=== PATIENT | male | born 1960 | race Caucasian/White ===

== ENCOUNTER → 2016-08-16 | Outpatient (CLI) | payer OTHER ==
[~2016-08-16] VITALS: Ht 182.9 cm; Wt 132.0 kg
[~2016-08-16] MED LIST: ASPIRIN81 M2 PO; BACLOFEN 10MG T10 MG PO; CYCLOBENZAPRINE10 MG PO; CYMBALTA30 MG PO; CYMBALTA60 MG PO; DICLOFENAC SODI75 MG PO; FLEXERIL PO; HYDROCODON-ACE1 EAC8 PO; HYDROCODONE-AP1 EA11 PO; LIPITOR20 MG PO; LISINOPRIL-HCT1 EACH PO; NABUMETONE 500500 M1 PO; NEURONTIN 300300 M1 PO; SIMVASTATIN40 MG PO; XANAX1 MG PO
--- NOTE | ~2016-08-16 | HPC ---
[facility] [place] [address] PAIN MANAGEMENT CONSULTATION Name: JADYNARNAUD CEBALLOS Room #: REG [facility] Qasim.#: [id number] Admission: 08/16/16 Attend Phys: Darrion Warner DO Discharge: Date of : 60 Report #: [id number] THIS REPORT FOR: //name// CC: Juan Burton DO DATE OF SERVICE: 08/16/2016 DATE OF SERVICE: 08/16/2015 CHIEF COMPLAINT: Back pain. HISTORY OF PRESENT ILLNESS: As you know, the patient is a 56-year-old male followed by [facility] for longstanding axial back pain issues. He has been diagnosed with chronic lumbar radiculopathy, lumbosacral spondylosis with radiculopathy exacerbated by his morbid obesity. This leads to chronic intractable pain. He returns today in followup visit to review recent MRI. There was concern on CT examination that the patient had a cystic formation just posterior to the L4 vertebral body. There was concern about the findings and he was sent for an MRI per the request of the radiology team as they were unable to determine whether or not this was concerning for any infectious risk or possible metastatic disease. He returns today to review the findings from this imaging study. He is placing pain score today 5/10. States the pain is mainly involving the low back and right lower extremity. ALLERGIES: PENICILLIN, AMOXICILLIN. CURRENT MEDICATIONS: Hydrocodone, nabumetone, duloxetine, baclofen, atorvastatin, aspirin, lisinopril, hydrochlorothiazide. SOCIAL HISTORY: The patient discontinued smoking. Denies IV or illicit drug use. Denies any chronic alcohol use. He is accompanied by his today. IMAGING: MRI of the lumbar spine obtained with contrast shows findings of L1-L2 unremarkable, L2-L3 unremarkable, L3-L4 unremarkable. There is an oval soft tissue density noted on the MRI appears to be nonenhancing. L4-L5 show some minor changes in the facets L5-S1 unremarkable. PHYSICAL EXAMINATION: VITAL SIGNS: Blood pressure 121/61, pulse 74, respiratory rate 18 unlabored. Patient is 95% on room air, height 6 feet tall, weight 291 pounds, BMI calculated 39.5. GENERAL: Well developed, well nourished, well hydrated, morbidly obese 56-year-old male appearing stated age, placing current pain score at 5/10. HEENT: Normocephalic, atraumatic. Pupils equal, round, [place] [address] PAIN MANAGEMENT CONSULTATION Name: ARNAUD SALAMANCA Room #: REG CLI [facility]#: [id number] Admission: 08/16/16 Attend Phys: Darrion Warner DO Discharge: Date of : 60 Report #: [id number] Extraocular muscles are intact. Sclerae nonicteric, without injection. EXTREMITIES: Show no clubbing, no cyanosis, no edema. MUSCULOSKELETAL: Lower extremity strength appears equal and symmetrical 5/5, intact to light touch from L1 through S2 dermatomes. Seated straight leg raising negative. Supine straight leg raising mildly positive. Stacey test negative. Modified Gaenslen's is positive for axial low back pain. ASSESSMENT: 1. Chronic lumbar radiculopathy. 2. Mild arthritic changes of the lumbar spine with radicular component. 3. Chronic intractable pain. 4. Morbid obesity. PLAN: 1. The patient has returned today in followup visit where we have taken a considerable amount of time to discuss the findings on the MRI and try to correlate with his findings on physical exam. We spent over 45 minutes of time discussing the patient's case in its entirety. This in conjunction with the questions from his . It appears that the patient is suffering from chronic radiculopathy, though no specific pathology in the lumbar spine appears to be contributing. There is a minor disk bulging at L4-5 which may be when standing exacerbating his symptoms, but is not present causing any nerve root impingement while lying down. I am unable to correlated that finding on the MRI to the patient's current condition, as the dermatomal distribution that he is describing does not correlate to the findings of a L4 disk bulge. I would recommend strongly that the patient undergo EMG. I am unable to come up with a reason why the patient is experiencing numbness and tingling in his right leg while the patient undergo EMG with Neurology. He was given a referral for neurological evaluation and possible EMG procedure. 2. The patient and I did discuss at length the possibility of utilizing epidural injection. It is interesting to note that when the patient underwent an epidural injection at a prior visit, he received no improvement in symptoms, though the pathology in the back has been unchanged. This would effectively rule out a disk problem, as the source of the patient's pain though I cannot rule out a chronic radiculopathy of unknown origin. 3. The patient should begin a concerted effort of physical therapy, stretching exercises, weight loss and core strengthening. We have given the patient a prescription for physical therapy twice a week for 6 weeks. He will begin this immediately. This in conjunction with diet program should improve his weight. The patient is carrying around 70 pounds extra weight, which needs to be reduced, which will likely reduce his back pain. He will initiate this treatment as quickly as possible. 4. We have made no changes in his medication therapy at this time. This was further request of the patient. We will see him back in followup visit once he has begun to involve himself in a concerted fixed exercise program and weight [facility] [address] [place] [address] PAIN MANAGEMENT CONSULTATION Name: ARNAUD SALAMANCA Room #: REG CL Qasim.#: [id number] Admission: 08/16/16 Attend Phys: Darrion Warner DO Discharge: Date of : 60 Report #: [id number] loss program. This in conjunction with the EMG findings will review at our followup visit. <ELECTRONICALLY SIGNED> By: Darrion Warner DO 08/21/16 0701 [id number] Darrion Warner DO /nt
[2016-08-16 08:43] VITALS: BP 122/61
== END ==
LOC: PAIN 06:56
DX: M54.16 Radiculopathy, lumbar region (principal); Z87.891 Personal history of nicotine dependence; E66.01 Morbid (severe) obesity due to excess calories

== ENCOUNTER → 2016-11-27 | Outpatient (CLI) | payer OTHER ==
[~2016-11-27] VITALS: Ht 185.4 cm; Wt 116.1 kg
[~2016-11-27] MED LIST changes: +NAPROSYN500 MG PO; +PERCOCET 5-3251 EACH PO
--- NOTE | ~2016-11-27 | HPC ---
[facility] [place] [address] PAIN MANAGEMENT CONSULTATION Name: ARNAUD SALAMANCA [id number] Admission: 11/27/16 Attend Phys: Chester Warner DO Discharge: Date of : 60 Report #: [id number] THIS REPORT FOR: //name// CC: Juan Hein REFERRING PHYSICIAN: Juan Zuniga DO. The patient is a 56-year-old gentleman, typically treated by Dr. Darrion Warner for symptomatic lumbar radiculopathy, myofascial pain, neuropathic pain component, requiring complex medication management. Last seen in the pain clinic on 09/12/2016. To the patient's credit, he has discontinued smoking some 16 months ago. He has been actively trying to lose weight. He had been down 23 pounds at last visit and is in fact down to a total of 38 pounds since he started "slim for life". States pain is primarily in beltline and up his back. He has been taking hydrocodone 7.5/325 for about 3 years. He started notice some end of dose failure and lack of efficacy. He notes pain as 2 on 0-10 visual analog scale. Chronic low back pain exacerbated with bending, general activity, typically worse at the end of the day. PHYSICAL EXAMINATION: Shows a 56-year-old gentleman, BMI is 33.8 kilograms per meter squared. Alert and oriented to person, place, and time. Judged to be a reasonable historian. Extraocular muscles are intact. There is no nystagmus or lateral gaze deviation. Blood pressure is 132/82, pulse 66, respirations 16. Rises from the chair using armrest. Gait is tandem. Lumbar flexion is limited to about 80-90 degrees. He has tenderness in his thoracic and lumbar paravertebral muscles. Pain is increased with range of motion. Hip range of motion is unremarkable. Stacey's test is negative. Lower extremity strength is objectively 4/5 to all muscle groups tested. BMI remains moderately elevated at 33.8 kilograms per meter squared. We reviewed the fact that opiate medications are being used to provide analgesia adequate to support activities of daily living, not attempting to achieve a specific pain score on the 0-10 Visual Analog Scale. The current opiate medications are providing sufficient analgesia to allow the patient to participate in activities of daily living. The patient is not exhibiting any aberrant behavior suggestive of drug diversion. The patient is not having any adverse reactions to medications. The patient is not suffering from daytime somnolence or mental acuity changes. The patient is managing opiate-induced constipation with appropriate pzdc-tri-lsihrmx agents and dietary considerations. The patient was counseled on concern for caution with operating a motor vehicle while using opiate medications. A physical exam was performed and the patient's functional status was evaluated. All patients with back pain were advised against the bed rest greater than 4 days and were advised to return to normal activities. Pain score assessment was [address] [address] PAIN MANAGEMENT CONSULTATION Name: ARNAUD SALAMANCA Room #: REG [facility]#: [id number] Admission: 11/27/16 Attend Phys: Chester Warner DO Discharge: Date of : 60 Report #: [id number] noted and the treatment plan was reviewed with the patient. All current medications, both prescribed and OTC were reviewed and reconciled on the electronic medical record. Tobacco screening was accomplished and smoking cessation was advised when indicated. BMI was noted and diet/exercise modification was recommended for all patients following outside normal parameters. I reviewed with the patient today their responsibilities to safeguard prescription medications, reviewed their responsibility to utilize medications only as prescribed by the physician. They are to seek and receive pain medications only from 1 physician group ( [facility]). They are to use 1 pharmacy and keep the clinic informed if they change pharmacies. Their responsibilities include making followup visits in a timely fashion and to avoid abrupt discontinuation of medication usage. Their responsibilities further include bringing their medications (bottles from the pharmacy with residual pills) to the visit for possible confirmation of pill counts and the patient understands it is their responsibility to submit to random drug screens to ensure both that the medications prescribed are present, and that no other controlled substances are present. All prescriptions provided today were generated electronically. A prolonged visit was spent with the patient today from 09:10 to 09:35. Greater than 50% of this time was spent counseling the patient. I reviewed [facility], which showed actually no information on the patient. He lives in [place] and fills his prescriptions there. He has a component of myofascial pain. Component of lumbar radicular symptoms. We reviewed the patient's MRI, which was most recently accomplished on 07/13/2016. It is really fairly unremarkable, lower thoracic and lumbar vertebra exhibit normal alignment. No lytic processes noted. Cauda equina appears normal. Conus terminates at L1. The patient has robust intrathecal diameter, throughout the lumbar canal. Intervertebral disk, facets, and foramina were all unremarkable. There is a soft tissue density dorsal to the L4 vertebral body. MEDICATIONS: Medications were reconciled, the patient apparently had been on Cymbalta at 60 mg at point, and now he is down to 30 mg, it is unclear why this was lowered, the patient is not sure. He had been on diclofenac, this has been discontinued in the past. He denies any gastroesophageal reflux or renal pathology. Denies any history of coronary artery disease, though he does have some hypertension treated with lisinopril. RECOMMENDATIONS: 1. We will trial an opiate rotation, equally analgesic oxycodone would be Percocet 5/325 t.i.d. We will increase Cymbalta to 60 mg and resume an [facility] [address] [place] [address] PAIN MANAGEMENT CONSULTATION Name: ARNAUD SALAMANCA Room #: REG [facility] Loan#: [id number] Admission: 11/27/16 Attend Phys: Chester Warner DO Discharge: Date of : 60 Report #: [id number] anti-inflammatory agent, Naprosyn 500 mg b.i.d. The patient cautioned about gastroesophageal reflux or melanotic stools. We will have the patient to follow up in 3 weeks. If this rotation is not efficacious, I did, however, give him two months of current prescription. If he notes good relief with the Percocet, but end of the dose failure, we may consider rotation to OxyContin 10 mg b.i.d. if he feels that it was not efficacious, we may consider rotation to hydrocodone extended release 30 mg 1 a day. The patient was discharged in good and stable condition after a prolonged visit, greater than 50% of the time spent counseling the patient. By: [id number] Chester Warner DO /arabella
[2016-11-27 09:04] VITALS: BP 132/82
== END | disposition home or self-care (01) ==
LOC: PAIN 06:49
DX: M54.16 Radiculopathy, lumbar region (principal); M79.1 Myalgia; G62.9 Polyneuropathy, unspecified

== ENCOUNTER → 2017-01-26 | Outpatient (CLI) | payer OTHER ==
[~2017-01-26] VITALS: Ht 185.4 cm; Wt 117.8 kg
--- NOTE | ~2017-01-26 | HPC ---
[facility] [address] [place] [address] PAIN MANAGEMENT CONSULTATION Name: JADYNARNAUD CEBALLOS [id number] Admission: 01/26/17 Attend Phys: Chester Warner DO Discharge: Date of : 60 Report #: [id number] THIS REPORT FOR: //name// CC: Juan Warner HISTORY OF PRESENT ILLNESS: The patient is a 56-year-old gentleman typically treated for axial back pain, lumbar radiculopathy, myofascial pain, neuropathic pain requiring complex medication management. Last seen in the pain clinic 11/27/2016. We increased Cymbalta to 60 so to back on Naprosyn (he had prior discontinued diclofenac) and rotated from hydrocodone, which he has been on for about 3 years to oxycodone. Equianalgesic dose of 7.5 mg hydrocodone to 5/325 Percocet. The patient returns to pain clinic today noting that actually this medication has been quite efficacious. States his pain is generally 2/10, chronic low back pain exacerbated with activity, worse at the end of the day, though significantly better than it had been with his prior opiate. PHYSICAL EXAMINATION: Shows 56-year-old gentleman, BMI is 34.3 kilograms per meter squared. Vital signs stable as noted on the EMR. He still is a little bit overweight, weight is about 259 pounds, BMI is 34.3 kilograms per meter squared. He and his have been using "slim for life," though he states he has been little less diligent with this recently. He did lose about 30 pounds. He wants to lose about another 30 pounds. Notes that his left shoulder pain is significantly improved with the resumption of the nonsteroidal anti-inflammatory agent, I did talk in broad terms today about cardiac risks of nonsteroidal anti-inflammatory medications and daily use. Suggested he started using the Naprosyn on a nondaily basis, perhaps 4/7 days. We will continue Percocet 5/325 up to 3 a day, Cymbalta 60 mg a day. We reviewed the fact that opiate medications are being used to provide analgesia adequate to support activities of daily living, not attempting to achieve a specific pain score on the 0-10 Visual Analog Scale. The current opiate medications are providing sufficient analgesia to allow the patient to participate in activities of daily living. The patient is not exhibiting any aberrant behavior suggestive of drug diversion. The patient is not having any adverse reactions to medications. The patient is not suffering from daytime somnolence or mental acuity changes. The patient is managing opiate-induced constipation with appropriate uptz-fmc-toxxwsl agents and dietary considerations. The patient was counseled on concern for caution with operating a motor vehicle while using opiate medications. A physical exam was performed and the patient's functional status was evaluated. All patients with back pain were advised against the bed rest greater than 4 days and were advised to return to normal activities. Pain score assessment was noted and the treatment plan was reviewed with the patient. All current [address] [address] PAIN MANAGEMENT CONSULTATION Name: ARNAUD SALAMANCA Room #: REG [facility] Cates#: [id number] Admission: 01/26/17 Attend Phys: Chester Warner DO Discharge: Date of : 60 Report #: [id number] medications, both prescribed and OTC were reviewed and reconciled on the electronic medical record. Tobacco screening was accomplished and smoking cessation was advised when indicated. BMI was noted and diet/exercise modification was recommended for all patients following outside normal parameters. I reviewed with the patient today their responsibilities to safeguard prescription medications, reviewed their responsibility to utilize medications only as prescribed by the physician. They are to seek and receive pain medications only from 1 physician group ( [facility]). They are to use 1 pharmacy and keep the clinic informed if they change pharmacies. Their responsibilities include making followup visits in a timely fashion and to avoid abrupt discontinuation of medication usage. Their responsibilities further include bringing their medications (bottles from the pharmacy with residual pills) to the visit for possible confirmation of pill counts and the patient understands it is their responsibility to submit to random drug screens to ensure both that the medications prescribed are present, and that no other controlled substances are present. All prescriptions provided today were generated electronically. ASSESSMENT: Lumbar radiculopathy, axial back pain, myofascial pain, neuropathic pain component, requiring complex medication management, stable on baseline medication. RECOMMENDATIONS: I have taken the liberty of writing for 2 months of current medication, Percocet 5/325 up to 3 a day, Cymbalta 60 mg daily, baclofen 10 mg b.i.d. and naproxen sodium 500 mg b.i.d., "nondaily use." Follow up in 2 months for reevaluation. We will likely get a urine drug screen at that time. No aberrant behavior suggestive for drug diversion, simply complying with our opiate consent to treat contract. <ELECTRONICALLY SIGNED> By: Chester Warner DO 01/29/17 [id number] Chester Warner DO /nt
[2017-01-26 08:27] VITALS: BP 125/69
== END | disposition home or self-care (01) ==
LOC: PAIN 06:55
DX: M54.16 Radiculopathy, lumbar region (principal); M79.1 Myalgia; G62.9 Polyneuropathy, unspecified; Z87.891 Personal history of nicotine dependence

== ENCOUNTER → 2017-03-22 | Outpatient (CLI) | payer OTHER ==
[~2017-03-22] VITALS: Ht 185.4 cm; Wt 118.8 kg
--- NOTE | ~2017-03-22 | HPC ---
[facility] [address] [place] [address] PAIN MANAGEMENT CONSULTATION Name: ARNAUD SALAMANCA Room #: REG CLARI Cates#: [id number] Admission: 03/22/17 Attend Phys: Chester Warner, DO Discharge: Date of : 60 Report #: [id number] THIS REPORT FOR: //name// CC: Juan Warner The patient is a 56-year-old gentleman typically treated for axial back pain, lumbar radiculopathy requiring complex medication management. Last seen in the pain clinic 01/25/2017. Returns to pain clinic today for prolonged visit, was seen from 9:15-9:40, greater than 50% of this 25+ minute visit was spent counseling the patient. He has started slim for life and lost 30 pounds at last visit. Returns to pain clinic today. He is somewhat chagrined and notes that he "fell off the slim for life wagon." His weight is unchanged from last visit. He also has stopped walking with his , they were walking at 6 miles at night. He notes he is desirous of weaning off of his opiate analgesics, takes Percocet 5/325 three a day. I did have him fill out a pain impact score. Today, he scores 34/70. He does have goals of losing another 30 pounds and getting off of pain medicine by this time next year. Today, we did get a buccal swap, no aberrant behavior suggestive for drug diversion, simply patient has not had any random test as required by our opiate consent to treat contract. Again, notes the pain is about 2/10, but the worst at the end of the day exacerbated specifically with leaning forward and walking. PHYSICAL EXAMINATION: GENERAL: Shows 56-year-old gentleman, BMI is 34.6 kilograms per meter squared (weight is 118 kilograms). VITAL SIGNS: Blood pressure 135/66, pulse is 88, respirations 16. NEUROLOGIC: He is alert and oriented to person, place and time, and judged to be a reasonable historian. Rises from chair using armrest. He still has an endomorphic build. Lumbar flexion is limited. Gait is tandem. Lower extremity strength is preserved. We reviewed the fact that opiate medications are being used to provide analgesia adequate to support activities of daily living, not attempting to achieve a specific pain score on the 0-10 Visual Analog Scale. The current opiate medications are providing sufficient analgesia to allow the patient to participate in activities of daily living. The patient is not exhibiting any aberrant behavior suggestive of drug diversion. [place] [address] PAIN MANAGEMENT CONSULTATION Name: ARNAUD SALAMANCA Room #: REG [facility] Qasim.#: [id number] Admission: 03/22/17 Attend Phys: Chester Warner DO Discharge: Date of : 60 Report #: [id number] adverse reactions to medications. The patient is not suffering from daytime somnolence or mental acuity changes. The patient is managing opiate-induced constipation with appropriate sitj-qpk-hsruoig agents and dietary considerations. The patient was counseled on concern for caution with operating a motor vehicle while using opiate medications. A physical exam was performed and the patient's functional status was evaluated. All patients with back pain were advised against the bed rest greater than 4 days and were advised to return to normal activities. Pain score assessment was noted and the treatment plan was reviewed with the patient. All current medications, both prescribed and OTC were reviewed and reconciled on the electronic medical record. Tobacco screening was accomplished and smoking cessation was advised when indicated. BMI was noted and diet/exercise modification was recommended for all patients following outside normal parameters. I reviewed with the patient today their responsibilities to safeguard prescription medications, reviewed their responsibility to utilize medications only as prescribed by the physician. They are to seek and receive pain medications only from 1 physician group ( [facility]). They are to use 1 pharmacy and keep the clinic informed if they change pharmacies. Their responsibilities include making followup visits in a timely fashion and to avoid abrupt discontinuation of medication usage. Their responsibilities further include bringing their medications (bottles from the pharmacy with residual pills) to the visit for possible confirmation of pill counts and the patient understands it is their responsibility to submit to random drug screens to ensure both that the medications prescribed are present, and that no other controlled substances are present. All prescriptions provided today were generated electronically. ASSESSMENT: Axial back pain, lumbar radiculopathy, myofascial pain component, requiring complex medication management in a gentleman with endogenous obesity and BMI of 34.6 kilograms per meter squared. RECOMMENDATION: Long discussion with the patient today about therapeutic options. Strongly encouraged him to get back to walking and dietary discretion. If he can drop 15 pounds by next visit, I will refer him to physical therapy for some core stabilization. I reviewed his MRI from July 2016, again very nominal findings of the lumbar spine, no dramatic lumbar spondylosis nor stenosis. I am hopeful patient can continue to lose weight, increase physical activity and wean opiates. We will plan perhaps 2 months after he has been PT to start weaning Percocet. I have taken the liberty of writing for his Percocet. dispensed #90 tablets, one tablet up to 3 times a day. Plan to lower mg on Rx next visit. RECOMMENDATIONS: Continue Naprosyn 500 mg b.i.d. on a nondaily basis. He does [facility] [address] [place] [address] PAIN MANAGEMENT CONSULTATION Name: ARNAUD SALAMANCA Room #: REG CLARI Cates#: [id number] Admission: 03/22/17 Attend Phys: Chester Warner DO Discharge: Date of : 60 Report #: [id number] not require prescription for Cymbalta or baclofen. Discharged in good and stable condition after a prolonged visit. Greater than 50% of the 25+ minute visit was spent counseling the patient. Discharged in good and stable condition. <ELECTRONICALLY SIGNED> By: Chester Warner DO 03/26/17 0908 0940 1009 Chester Warner DO /nt
[2017-03-22 09:06] VITALS: BP 135/66
== END | disposition home or self-care (01) ==
LOC: PAIN 06:47
DX: Z76.0 Encounter for issue of repeat prescription (principal); M54.16 Radiculopathy, lumbar region; G89.29 Other chronic pain; M79.1 Myalgia; E66.8 Other obesity; Z87.891 Personal history of nicotine dependence; Z68.34 Body mass index [BMI] 34.0-34.9, adult; Z79.82 Long term (current) use of aspirin; Z79.899 Other long term (current) drug therapy; Z79.891 Long term (current) use of opiate analgesic; Z88.0 Allergy status to penicillin; Z88.8 Allergy status to other drugs, medicaments and biological substances

== ENCOUNTER → 2017-05-14 | Outpatient (CLI) | payer OTHER ==
[~2017-05-14] VITALS: Ht 185.4 cm; Wt 124.5 kg
[~2017-05-14] MED LIST changes: +HYDROCODONE-AP1 EAC6 PO
--- NOTE | ~2017-05-14 | HPC ---
[facility] [address] [address] PAIN MANAGEMENT CONSULTATION Name: ARNAUD SALAMANCA Room #: REG CLARI Cates#: [id number] Admission: 05/14/17 Attend Phys: Chester Warner, DO Discharge: Date of : 60 Report #: [id number] THIS REPORT FOR: //name// CC: Juan Warner The patient is a 57-year-old gentleman, last seen in the pain clinic 03/22/2017, continued on Percocet 5/325 three a day. He returns to pain clinic today for a prolonged visit, he was seen from 8:40 to 9:05, greater than 50% of this time was spent counseling the patient. He has been trying to lose weight, at last visit he noted that he had stopped dieting. He was; however, walking about 6 miles an hour with his . He returns to pain clinic today noting he has gone up from 260 to 274 pounds. He complains primarily of axial back pain, he rates it 2/10. He states he and his have started back on slim for life diet plan. We also had a prolonged visit talking about concerns about opiate habituation. He states his pain is generally well controlled, he realized that he was taking his Percocet on a scheduled basis, not p.r.n. 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 He is working on mindful relaxation and distraction. To his credit, he and his have both been tobacco free now for about a year and a half (quit in September 2015). He did have a good condition weekend, he and his took a 300 mile motorcycle trip, they travled to [facility] to visit his son and then journeyed on to some other sites. PHYSICAL EXAMINATION: Today shows a 57-year-old gentleman, BMI is up to 36.2 kg/m2 (274 pounds). Subjective pain score; however, is fairly nominal 2/10. He is alert and oriented to person, place and time, judged to be a reasonable historian. Diffuse axial back pain, though gait is tandem. Lower extremity strength is preserved. Vital signs are stable as noted in the EMR. Long discussion with the patient today about therapeutic drugs. He is currently taking Cymbalta 60 mg a day, baclofen as needed for spasm, and naproxen 500 mg, last visit, I suggested he use this on a nondaily basis, which he has. Percocet 5/325 three a day was the focus of our discussion. We have elected to rotate the hydrocodone 5/325 for 2 months and then we will plan on lowering the number of tablets to 75 for the first month and 60 for the second month. [address] [address] PAIN MANAGEMENT CONSULTATION Name: ARNAUD SALAMANCA Room #: REG CLHeriberto Cates#: [id number] Admission: 05/14/17 Attend Phys: Chester Warner DO Discharge: Date of : 60 Report #: [id number] ASSESSMENT: Lumbar radiculopathy, axial back pain, chronic pain syndrome requiring high risk complex medication management, elevated body mass index, and significant stress psychosocial. RECOMMENDATION: Medication changes as noted above. Discharged in good and stable condition. Again, the patient was seen from 8:40 to 9:05. <ELECTRONICALLY SIGNED> By: Chester Warner DO 05/16/17 0752 1242 1525 Chester Warner DO /nt
[2017-05-14 08:37] VITALS: BP 128/67
== END | disposition home or self-care (01) ==
LOC: PAIN 07:08
DX: M54.16 Radiculopathy, lumbar region (principal); Z68.36 Body mass index [BMI] 36.0-36.9, adult; G89.4 Chronic pain syndrome; Z87.891 Personal history of nicotine dependence

== ENCOUNTER → 2017-09-07 | Outpatient (CLI) | payer OTHER ==
[~2017-09-07] VITALS: Ht 185.4 cm; Wt 124.3 kg
[~2017-09-07] MED LIST changes: +ALEVE220 MG PO; +LIPITOR 20 MG T20 M1 PO; +MOBIC7.5 MG PO; +NEURONTIN600 MG PO; +NORCO 7.5-3251 EACH PO; +UNICOMPLEX M TA1 TA1 PO
--- NOTE | ~2017-09-07 | HPC ---
[facility] [address] [address] [place] [address] PAIN MANAGEMENT CONSULTATION Name: ARNAUD SALAMANCA Room #: REG CLARI Cates#: [id number] Admission: 09/07/17 Attend Phys: Chester Warner DO Discharge: Date of : 60 Report #: [id number] THIS REPORT FOR: //name// CC: Juan Warner PAIN CLINIC NOTE The patient is a 57-year-old gentleman prior seen in the pain clinic on 07/09/2017, diagnosed with lumbar radiculopathy, axial back pain component with some chronic anxiety requiring high risk complex medication management. Last visit, we continued the patient on Cymbalta 60 mg daily, baclofen p.r.n. spasm. We had increased hydrocodone from 5 to 7.5 t.i.d. at that time. The patient returns to the pain clinic today. He has been trying to lose weight, initially started at about 274 pounds, down to 265 pounds last visit. Returns to pain clinic today noting his weight loss regimen has been somewhat attenuated, was found to have coronary artery disease. He had to stop phentermine. He states he has been "in a funk." He has actually gone up about 9 pounds. States he has had some plantar fasciitis to the right side about 6-7 months, which has been problematic. He has been wearing compressive stocking and an arch support. He had had surgery on the left foot for similar issues. He is planning on joining the [facility] for swimming as exercise, plantar fasciitis is exacerbated with jogging and treadmill. I did suggest he follow up with an orthopedic surgeon for his right foot, recommended to Dr. Rahul Chisholm, [facility] or Dr. Torres at [facility]. Overall, the patient rates his pain a 4 on a VAS, primarily low back pain with some upper muscle spasm, burning, numbness, activity related, exacerbated with bending, worse at the end of the day. History of osteoarthritis, DJD, lumbar spondylosis, low back. Again, BMI remains elevated at 36.2 kilograms per meter squared, weight is 274 today. Vital signs stable as noted on the EMR. He did fall since our last visit. He was leaning on a ladder. X-rays were done, no fractures. He has not fallen while ambulating. Medicines were reconciled. History of hypertension, moderately well controlled, (again blood pressure 136/71). Chronic opiate therapy on an opiate consent to treat contract was signed on 03/22/2017. Former nicotine use, none current. We reviewed the fact that opiate medications are being used to provide analgesia adequate to support activities of daily living, not attempting to achieve a specific pain score on the 0-10 Visual Analog Scale. The current opiate medications are providing sufficient analgesia to allow the patient to participate in activities of daily living. The patient is not exhibiting any aberrant behavior suggestive of drug diversion. The patient is not having any adverse reactions to medications. The [place] [address] PAIN MANAGEMENT CONSULTATION Name: ARNAUD SALAMANCA Room #: REG CLARI Cates#: [id number] Admission: 09/07/17 Attend Phys: Chester Warner DO Discharge: Date of : 60 Report #: [id number] somnolence or mental acuity changes. The patient is managing opiate-induced constipation with appropriate qyuf-okn-cxoigao agents and dietary considerations. The patient was counseled on concern for caution with operating a motor vehicle while using opiate medications. A physical exam was performed and the patient's functional status was evaluated. All patients with back pain were advised against the bed rest greater than 4 days and were advised to return to normal activities. Pain score assessment was noted and the treatment plan was reviewed with the patient. All current medications, both prescribed and OTC were reviewed and reconciled on the electronic medical record. Tobacco screening was accomplished and smoking cessation was advised when indicated. BMI was noted and diet/exercise modification was recommended for all patients following outside normal parameters. I reviewed with the patient today their responsibilities to safeguard prescription medications, reviewed their responsibility to utilize medications only as prescribed by the physician. They are to seek and receive pain medications only from 1 physician group ( [facility]). They are to use 1 pharmacy and keep the clinic informed if they change pharmacies. Their responsibilities include making followup visits in a timely fashion and to avoid abrupt discontinuation of medication usage. Their responsibilities further include bringing their medications (bottles from the pharmacy with residual pills) to the visit for possible confirmation of pill counts and the patient understands it is their responsibility to submit to random drug screens to ensure both that the medications prescribed are present, and that no other controlled substances are present. All prescriptions provided today were generated electronically. PHYSICAL EXAMINATION: Again, BMI is back up to 36.2 kilograms per meter squared. Rises from chair using armrest. Gait is modestly antalgic. Subjective tenderness in the right foot, primarily the arch. Diffuse tenderness across the low back. Lumbar flexion is limited secondary to pain. Lower extremity strength is preserved. No symptoms compatible with lumbar radiculopathy. ASSESSMENT: Lumbar radiculopathy, axial back pain requiring high risk complex medication management. RECOMMENDATIONS: 1. Agree with pursuing cross training including swimming rather than jogging for exercise, weight reduction, general core strength. 2. Refer to either [facility] or [facility] for evaluation of right plantar fasciitis. 3. We will continue baseline narcotic presently, hydrocodone 7.5/325 one tablet up to 3 times a day for another 2 months. 4. Buccal drug swab accomplished today. No aberrant behavior suggestive of drug diversion, simply complying with the opiate consent to treat contract. [facility] [address] [place] [address] PAIN MANAGEMENT CONSULTATION Name: ARNAUD SALAMANCA Room #: REG CLARI Cates#: [id number] Admission: 09/07/17 Attend Phys: Chester Warner DO Discharge: Date of : 60 Report #: [id number] The patient discharged in good and stable condition. <ELECTRONICALLY SIGNED> By: Chester Warner DO 09/10/17 1026 1250 2143 Chester Warner DO /nt
[2017-09-07 13:21] VITALS: BP 136/71
== END ==
LOC: PAIN 07:02
DX: M54.16 Radiculopathy, lumbar region (principal); M54.9 Dorsalgia, unspecified; F41.9 Anxiety disorder, unspecified; Z79.899 Other long term (current) drug therapy

== ENCOUNTER → 2017-11-01 | Outpatient (CLI) | payer OTHER ==
[~2017-11-01] VITALS: Ht 185.4 cm; Wt 126.6 kg
[~2017-11-01] MED LIST changes: -ALEVE220 MG PO; -MOBIC7.5 MG PO; -NEURONTIN600 MG PO; -UNICOMPLEX M TA1 TA1 PO
--- NOTE | ~2017-11-01 | HPC ---
[facility] [address] [address] PAIN MANAGEMENT CONSULTATION Name: JADYNARNAUD CEBALLOS Room #: REG CLARI Tripp.#: [id number] Admission: 11/01/17 Attend Phys: Chester Warner DO Discharge: Date of : 60 Report #: [id number] THIS REPORT FOR: //name// CC: Juan Warner The patient is a 57-year-old gentleman, treated for lumbar radiculopathy, axial back pain, chronic anxiety, lumbar spondylosis, history of coronary artery disease requiring complex medication management. Last visit 09/07/2017. The patient was continued on hydrocodone 7.5/325 one tablet up to 3 times a day. Continued on Cymbalta 60 mg a day, baclofen as needed for spasm. He returns to pain clinic today. We again had a prolonged visit. He has tried to lose weight in the past. Last visit, he was quite frustrated. He had recently been diagnosed with some coronary artery disease and significant right foot plantar fasciitis. I had suggested he follow up with an orthopedist and was given referrals for [facility], Dr. Rahul Chisholm and [facility], Dr. Torres. Unfortunately, he has not followed up with either of those. He is complaining bitterly of ongoing right foot pain. He has been diagnosed with coronary artery disease last visit. He states he has been "in a funk." He had stopped trying to exercise and lose weight. He had gotten down from 274 down to 265 pounds. Unfortunately, he has been quite sedentary and weight has come up further since last visit, current weight is 279.2 pounds. He states he has not joined the [facility] for swimming exercises as we discussed. He is unable to use a treadmill due to the chronic right foot plantar fasciitis type pain. He does tell me, however, that his primary treating physician, Dr. Zuniga also referred him to a foot doctor (not sure if this is a green ware caster or an orthopedist). He presents to pain clinic today noting pain is a 2 on a VAS. He is doing well with current medication, though he notes that the right foot pain is interfering with function. VITAL SIGNS: Blood pressure is 133/75, pulse 65, respirations 16, BMI is elevated at 36.8 kilograms per meter squared History of hypertension. Medication list was reconciled and reviewed. Opiate consent to treat contract which was signed on 03/22/2017. Random drug screen was accomplished at last visit, a buccal drug swab was positive for hydrocodone as the sole opiate as expected. We reviewed the fact that opiate medications are being used to provide analgesia adequate to support activities of daily living, not attempting to achieve a specific pain score on the 0-10 Visual Analog Scale. The current opiate medications are providing sufficient analgesia to allow the patient to participate in activities of daily living. The patient is not exhibiting any [address] [address] PAIN MANAGEMENT CONSULTATION Name: ARNAUD SALAMANCA Room #: REG CLARI Cates#: [id number] Admission: 11/01/17 Attend Phys: Chester Warner DO Discharge: Date of : 60 Report #: [id number] aberrant behavior suggestive of drug diversion. The patient is not having any adverse reactions to medications. The patient is not suffering from daytime somnolence or mental acuity changes. The patient is managing opiate-induced constipation with appropriate dszq-etx-bhxcudy agents and dietary considerations. The patient was counseled on concern for caution with operating a motor vehicle while using opiate medications. A physical exam was performed and the patient's functional status was evaluated. All patients with back pain were advised against the bed rest greater than 4 days and were advised to return to normal activities. Pain score assessment was noted and the treatment plan was reviewed with the patient. All current medications, both prescribed and OTC were reviewed and reconciled on the electronic medical record. Tobacco screening was accomplished and smoking cessation was advised when indicated. BMI was noted and diet/exercise modification was recommended for all patients following outside normal parameters. I reviewed with the patient today their responsibilities to safeguard prescription medications, reviewed their responsibility to utilize medications only as prescribed by the physician. They are to seek and receive pain medications only from 1 physician group ( [facility]). They are to use 1 pharmacy and keep the clinic informed if they change pharmacies. Their responsibilities include making followup visits in a timely fashion and to avoid abrupt discontinuation of medication usage. Their responsibilities further include bringing their medications (bottles from the pharmacy with residual pills) to the visit for possible confirmation of pill counts and the patient understands it is their responsibility to submit to random drug screens to ensure both that the medications prescribed are present, and that no other controlled substances are present. All prescriptions provided today were generated electronically. PHYSICAL EXAMINATION: Does note modestly antalgic gait, tenderness across the sole of the right foot. Diffuse axial back pain, no discrete trigger points noted. We had a prolonged visit today. Again, greater than 25 minutes was spent counseling the patient, discussing therapeutic options. Strongly encouraged him to follow up with a referral for his right plantar fasciitis. Strongly encouraging him to increase physical activity including joining the [facility] where he can do water aerobics which he can do with little trauma to the right foot. Continue low dose hydrocodone 7.5/325 up to 3 a day. Continue Cymbalta 60 mg daily. Does not require prescription for the latter medication. Discharged in good and stable condition. Follow up in 2 months for [facility] [address] [place] [address] PAIN MANAGEMENT CONSULTATION Name: ARNAUD SALAMANCA Room #: REG [facility] Qasim.#: [id number] Admission: 11/01/17 Attend Phys: Chester Warner DO Discharge: Date of : 60 Report #: [id number] reevaluation, earlier if needed. Again seen for greater than 25 minutes today, 50% of the time spent counseling the patient. <ELECTRONICALLY SIGNED> By: Chester Warner DO 11/05/17 0714 1239 1323 Chester Warner DO /nt
[2017-11-01 10:59] VITALS: BP 133/75
== END ==
LOC: PAIN 07:00
DX: M47.26 Other spondylosis with radiculopathy, lumbar region (principal); F41.9 Anxiety disorder, unspecified; I25.10 Atherosclerotic heart disease of native coronary artery without angina pectoris; Z79.899 Other long term (current) drug therapy

== ENCOUNTER → 2018-01-31 | Outpatient (CLI) | payer OTHER ==
[~2018-01-31] VITALS: Ht 185.4 cm; Wt 125.2 kg
[~2018-01-31] MED LIST changes: +ALEVE220 MG PO; +UNICOMPLEX M TA1 TA1 PO
--- NOTE | ~2018-01-31 | HPC ---
[facility] [place] [address] PAIN MANAGEMENT CONSULTATION Name: ARNAUD SALAMANCA Room #: REG Heriberto Tripp.#: [id number] Admission: 01/31/18 Attend Phys: Chester Warner DO Discharge: Date of : 60 Report #: [id number] THIS REPORT FOR: //name// CC: Juan Warner DATE OF SERVICE: 01/31/2018 The patient is a 57-year-old gentleman long known to the Pain [facility], being treated for axial back pain, lumbar spondylosis without myelopathy. Comorbidity includes coronary artery disease, component of myofascial pain. Last seen in the Pain Clinic on 12/27/2017. Continued on hydrocodone 5/325, typically about 3 a day. We resumed Cymbalta at last visit with good efficacy. Last random drug screen on 09/10/2017 was positive for prescribed medications. He returns to the Pain Clinic today. At last visit, we talked about increasing swimming for recreational activity. While he has not join the [facility] for swimming as we had talked at last visit, he does note that he started doing more water aerobics, swimming at his daughter's house. They apparently have a pool and live in close proximity. He was able to take a motorcycle trip to [place]. He continues to be physically active. He notes that with increasing activity, he has had some increasing pain in his low back and feet. He started to take Aleve b.i.d. tryk-lki-rrjedxw with some efficacy. Planning on having plantar fasciitis and Achilles lengthening on 02/01/2018. Likely be nonweightbearing for several weeks following the surgery. Currently, he rates his pain 8 on a VAS. Pain is exacerbated with activity, bending, and standing. The patient notes resuming Cymbalta at 60 mg a day has helped both with pain (back pain) and overall mood. 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 This has caused some degree of anxiety and stress. He is handling this reasonably well. I talked about possibility of needing different analgesics post-surgery, again our more recent studies on postsurgical pain tend to eschew alf opiates in favor of short course of analgesics and return to baseline. With this, we will suggest patient continue to try and wean hydrocodone 5/325, but enable him to take up to 3 a day. If his operating physician writes for an opiate analgesic, I told him he can simply use that medication for a short course while assiduously discontinuing his prescription hydrocodone. [address] [address] PAIN MANAGEMENT CONSULTATION Name: ARNAUD SALAMANCA Room #: REG [facility] Loan#: [id number] Admission: 01/31/18 Attend Phys: Chester Warner DO Discharge: Date of : 60 Report #: [id number] PHYSICAL EXAMINATION: Otherwise, shows 57-year-old gentleman, BMI is modestly elevated at 36.4 kg/m2. Blood pressure 141/80, pulse 82, respirations 16. Alert and oriented to person, place and time, judged to be a reasonable historian. Rises from chair using armrest. He has a modestly antalgic gait, though somewhat favoring his foot. Diffuse axial back pain is fairly nominal presently. Lower extremity strength is symmetric. Straight leg raise negative. Again, last random drug screen on 09/10/2017 was positive for prescribed medications. We reviewed the fact that opiate medications are being used to provide analgesia adequate to support activities of daily living, not attempting to achieve a specific pain score on the 0-10 Visual Analog Scale. The current opiate medications are providing sufficient analgesia to allow the patient to participate in activities of daily living. The patient is not exhibiting any aberrant behavior suggestive of drug diversion. The patient is not having any adverse reactions to medications. The patient is not suffering from daytime somnolence or mental acuity changes. The patient is managing opiate-induced constipation with appropriate ipvc-byy-daqvrln agents and dietary considerations. The patient was counseled on concern for caution with operating a motor vehicle while using opiate medications. A physical exam was performed and the patient's functional status was evaluated. All patients with back pain were advised against the bed rest greater than 4 days and were advised to return to normal activities. Pain score assessment was noted and the treatment plan was reviewed with the patient. All current medications, both prescribed and OTC were reviewed and reconciled on the electronic medical record. Tobacco screening was accomplished and smoking cessation was advised when indicated. BMI was noted and diet/exercise modification was recommended for all patients following outside normal parameters. I reviewed with the patient today their responsibilities to safeguard prescription medications, reviewed their responsibility to utilize medications only as prescribed by the physician. They are to seek and receive pain medications only from 1 physician group ([facility]). They are to use 1 pharmacy and keep the clinic informed if they change pharmacies. Their responsibilities include making followup visits in a timely fashion and to avoid abrupt discontinuation of medication usage. Their responsibilities further include bringing their medications (bottles from the pharmacy with residual pills) to the visit for possible confirmation of pill counts and the patient understands it is their responsibility to submit to random drug screens to ensure both that the medications prescribed are present, and that no other controlled substances are present. All prescriptions provided today were generated electronically. [address] [place] [address] PAIN MANAGEMENT CONSULTATION Name: ARNAUD SALAMANCA Room #: REG [facility] Qasim.#: [id number] Admission: 01/31/18 Attend Phys: Chester Warner DO Discharge: Date of : 60 Report #: [id number] ASSESSMENT: Chronic axial back pain, lumbar spondylosis without myelopathy. Comorbidities include coronary artery disease, myofascial pain concerns, and foot and ankle malady prompting surgery, 02/01/2018. The patient is now 2 years a nonsmoker. He was congratulated on same. RECOMMENDATIONS: Continue hydrocodone 5/325. I have taken the liberty of writing for 90 tablets with prescription to be filled today and again in 4 weeks. We will have the patient follow up with one of the [facility]. <ELECTRONICALLY SIGNED> By: Chester Warner DO 02/01/18 0822 [id number] Chester Warner DO /nt
[2018-01-31 08:16] VITALS: BP 141/80
== END ==
LOC: PAIN 06:50
DX: M47.816 Spondylosis without myelopathy or radiculopathy, lumbar region (principal); I25.10 Atherosclerotic heart disease of native coronary artery without angina pectoris

== ENCOUNTER → 2018-05-21 | Outpatient (CLI) | payer OTHER ==
[~2018-05-21] VITALS: Ht 185.4 cm; Wt 129.9 kg
[~2018-05-21] MED LIST changes: +MOBIC7.5 MG PO; +NEURONTIN600 MG PO
--- NOTE | ~2018-05-21 | HPC ---
[facility] [place] [address] PAIN MANAGEMENT CONSULTATION Name: ARNAUD SALAMANCA Room #: REG Heriberto Tripp.#: [id number] Admission: 05/21/18 Attend Phys: Darrion Warner DO Discharge: Date of : 60 Report #: [id number] THIS REPORT FOR: //name// CC: Juan Craven DATE OF SERVICE: 05/21/2018 REFERRING PHYSICIAN: Juan Zuniga D.O. CHIEF COMPLAINT: Low back pain and right foot pain status post surgery. HISTORY OF PRESENT ILLNESS: As you know, the patient is a morbidly obese 58-year-old male, treated for axial back pain secondary to the lumbosacral spondylosis without myelopathy, comorbidities of coronary artery disease, myofascial pain and post-surgical pain status post right foot surgery. He continues to take hydrocodone 5/325 up to 3 times a day for pain control. He is also on gabapentin for neuropathic component of his pain secondary to surgery and Meloxicam. The patient is on a very low dose of gabapentin noted to be 300 mg twice a day, which given his body habitus would provide no benefit. He returns today to discuss options for treatment to address pain for which he places symptoms at 3/10, mainly involving the right foot. He indicates the pain is numbness with pain underlying, also known as anesthesia dolorosa. The patient returns to discuss options for treatment. ALLERGIES: PENICILLIN and AMOXICILLIN. CURRENT MEDICATIONS: Meloxicam 7.5 mg once a day, gabapentin 300 mg twice a day, hydrocodone 5/325 three times a day, duloxetine 60 mg once a day, naproxen 220 mg every 12 hours p.r.n., multivitamin 1 tab per day, aspirin 81 mg per day and lisinopril/hydrochlorothiazide 10/12.5 mg once a day. SOCIAL HISTORY: The patient is a reformed smoker. He denies IV or illicit drug use. Denies any chronic alcohol use. He is continuing to work but has had difficulty secondary to right foot and post-surgical complications. He is unaccompanied today. IMAGING DATA: No new imaging available. PHYSICAL EXAMINATION: VITAL SIGNS: Blood pressure 149/76, pulse 75 and respiratory rate 16 and unlabored. The patient is 96% on room air. Height 6 feet 1 inch tall, weight 286.4 pounds and BMI calculated 37.8. GENERAL: Well-developed, well-nourished, well-hydrated, morbidly obese 58-year-old male. He appears his stated age. He [place] [address] PAIN MANAGEMENT CONSULTATION Name: JADYNARNAUD LIN Room #: REG [facility].#: [id number] Admission: 05/21/18 Attend Phys: Darrion Warner DO Discharge: Date of : 60 Report #: [id number] at 10/20. HEENT: Normocephalic and atraumatic. Pupils equal, round and reactive to light. Extraocular muscles are intact. Sclerae nonicteric without injection. NEUROLOGICAL: Cranial nerves 2 through 12 grossly intact. Speech is fluent. The patient deemed a good historian. EXTREMITIES: Show no clubbing and no cyanosis. There is well-healed surgical scars of right foot. Foot is wrapped in compression hose and JESSICA bandaging. There is some palpatory tenderness noted over the paraspinal musculature of the lower lumbar spine and no spinous process tenderness. Seated straight leg raising remains negative. Supine straight leg raising negative. ASSESSMENT: 1. Right foot pain status post surgery with complications. 2. Chronic low back pain. 3. Lumbosacral spondylosis without radiculopathy. 4. Morbid obesity (class 2). 5. Opioid dependency. 6. Complicated medication management. 7. Chronic intractable pain. PLAN: 1. The patient returns today in followup visit requesting refill on medications. We have taken the liberty of discussing with the patient current medication treatment. It does appear he has been receiving opioids not only from our services but from his surgeon. This was from January through April. We have advised the patient that he can fill only opioids from one physician. He cannot be receiving opioids from multiple physicians. The patient states that his orthopedic surgeon has discontinued providing these medications. He returns to gain refills of the hydrocodone at the 5/325 dose 1 tab 3 times a day. 2. The patient and I had a very long discussion about the symptoms he is experiencing in the right foot. 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 This appears to be the case in the patient's postsurgical issues. Recommend strongly an escalating dose of gabapentin. Currently, he is a gabapentin 300 mg twice a day way below his necessary level to gain efficacy. Recommend increasing to 300 mg in the morning and 600 mg at night for the next 3 nights; then 600 mg in the morning, 600 mg at night for 3 days; then 600 mg morning and 900 mg at night for 3 days and then 900 mg b.i.d. The patient was advised anytime during the titration if he notes improvement in symptoms, stabilize at that dose; any side effects such as somnolence, decreased mental acuity, disorientation or confusion, he is to contact our clinic in regards. The patient has medication available, does not need refills at this time, but we will be more than willing to provide refills of the gabapentin if necessary. 3. Recommend escalating to meloxicam dose from 7.5 mg once a day to 7.5 mg twice a day. This will provide better baseline analgesic benefit allowing for [facility] [address] [place] [address] PAIN MANAGEMENT CONSULTATION Name: ARNAUD SALAMANCA Room #: REG CLARI Cates#: [id number] Admission: 05/21/18 Attend Phys: Darrion Warner DO Discharge: Date of : 60 Report #: [id number] the Meloxicam to be consistent in the bloodstream. The half life of that drug such that by taking a 7.5 mg dose in the morning, he will have no anti-inflammatory effect towards the late afternoon evening hours and I believe this would be beneficial for the patient from a pain standpoint. Recommend escalating the dose. The patient will check with his orthopedic surgeon in regards to any concerns they may have with this medication as they do have fairly old literature that shows some issues with bone growth with nonsteroidal anti-inflammatories, though this has not been proven in any new documentation. 4. We had a long discussion with the patient about his increasing weight. This is significantly compounding his right foot pain as well as his low back symptoms. He is now a class 2 morbidly obese individual with a BMI of 37.5. He needs to lose weight as quickly as possible. Recommend diet changes and increasing exercise activities such as utilizing a pool for aqua therapy, which he has not been released to be able to do so and continue recumbent bikes and use of an elliptical track man, all of which have been cleared from his orthopedic surgeon standpoint. 5. The patient was provided a prescription of hydrocodone 5/325 one tab every 8 hours p.r.n. for pain, #90 releases of today, 4 weeks from today, 2 months' worth of medication. The patient was advised to follow up with us in 2 months to discuss medication management further. Our intention is to wean the patient off of opioid medication as quickly as possible as I do not feel they are providing much in the way of benefit for his postsurgical issues with presumptive diagnosis of anesthesia dolorosa and is certainly not providing much in the way of benefit for axial back pain issues, which can be treated with interventional treatments. 6. We reviewed the fact that opiate medications are being used to provide analgesia adequate to support activities of daily living, not attempting to achieve a specific pain score on the 0-10 Visual Analog Scale. The current opiate medications are providing sufficient analgesia to allow the patient to participate in activities of daily living. The patient is not exhibiting any aberrant behavior suggestive of drug diversion. The patient is not having any adverse reactions to medications. The patient is not suffering from daytime somnolence or mental acuity changes. The patient is managing opiate-induced constipation with appropriate gkjr-yjs-iilivhn agents and dietary considerations. The patient was counseled on concern for caution with operating a motor vehicle while using opiate medications. A physical exam was performed and the patient's functional status was evaluated. All patients with back pain were advised against the bed rest greater than 4 days and were advised to return to normal activities. Pain score assessment was noted and the treatment plan was reviewed with the patient. All current medications, both prescribed and OTC were reviewed and reconciled on the electronic medical record. Tobacco screening was accomplished and smoking cessation was advised when indicated. BMI was noted and diet/exercise modification was recommended for all patients following outside normal parameters. [address] [address] PAIN MANAGEMENT CONSULTATION Name: ARNAUD SALAMANCA Room #: REG CLARI Cates#: [id number] Admission: 05/21/18 Attend Phys: Darrion Warner DO Discharge: Date of : 60 Report #: [id number] I reviewed with the patient today their responsibilities to safeguard prescription medications, reviewed their responsibility to utilize medications only as prescribed by the physician. They are to seek and receive pain medications only from 1 physician group ( [facility]). They are to use 1 pharmacy and keep the clinic informed if they change pharmacies. Their responsibilities include making followup visits in a timely fashion and to avoid abrupt discontinuation of medication usage. Their responsibilities further include bringing their medications (bottles from the pharmacy with residual pills) to the visit for possible confirmation of pill counts and the patient understands it is their responsibility to submit to random drug screens to ensure both that the medications prescribed are present, and that no other controlled substances are present. All prescriptions provided today were generated electronically. <ELECTRONICALLY SIGNED> By: Darrion Warner DO 05/22/18 0821 0915 [id number] Darrion Warner DO /nt
[2018-05-21 07:54] VITALS: BP 149/76
== END ==
LOC: PAIN 06:52
DX: Z48.89 Encounter for other specified surgical aftercare (principal); M79.671 Pain in right foot; M54.5 Low back pain; G89.4 Chronic pain syndrome; F11.20 Opioid dependence, uncomplicated; E66.01 Morbid (severe) obesity due to excess calories; M47.817 Spondylosis without myelopathy or radiculopathy, lumbosacral region; Z79.899 Other long term (current) drug therapy; Z88.0 Allergy status to penicillin

== ENCOUNTER → 2018-07-17 | Outpatient (CLI) | payer OTHER ==
[~2018-07-17] VITALS: Ht 185.4 cm; Wt 130.2 kg
[~2018-07-17] MED LIST changes: +MOBIC15 MG PO
--- NOTE | ~2018-07-17 | HPC ---
[facility] [place] [address] PAIN MANAGEMENT CONSULTATION Name: JADYNARNAUD CEBALLOS [id number] Admission: 07/17/18 Attend Phys: Darrion Warner DO Discharge: Date of : 60 Report #: [id number] THIS REPORT FOR: //name// CC: Juan Craven DATE OF SERVICE: 07/17/2018 CHIEF COMPLAINT: Right lower extremity pain with paresthesias. HISTORY OF PRESENT ILLNESS: As you know, the patient is a 58-year-old male, returning in followup visit with continued right foot paresthesias status post surgery on the right foot. The patient indicates it is believed his symptoms are related to anesthesia block prior to surgery, which does not correlate with the patient's distribution or findings. This appears to be related more to the actual surgery site and irritation of nerves at that level as the patient has no radicular symptoms or proximal nerve issues that would indicate some type of nerve injury from a presurgical block. The patient does have some known radicular symptoms, which is exacerbated with his increasing weight. He returns today to make adjustments in medication therapy to address ongoing right lateral foot numbness, tingling, burning, and electrical like sensations. ALLERGIES: PENICILLIN AND AMOXICILLIN. CURRENT MEDICATIONS: Meloxicam, hydrocodone, gabapentin, multivitamin, aspirin, and lisinopril/hydrochlorothiazide. SOCIAL HISTORY: The patient denies tobacco, alcohol, IV or illicit drug use. He is working. He is unaccompanied today. IMAGING: There is no new imaging available. PHYSICAL EXAMINATION: VITAL SIGNS: Blood pressure 142/77, pulse 75, respiratory rate 16 and unlabored. The patient is 97% on room air, height 6 feet 1 inch tall, weight 287 pounds, BMI calculated 37.9. GENERAL: Well-developed, well-nourished, well-hydrated, exogenously obese 58-year-old male. He appears his stated age, placing current pain score 6/10. HEENT: Normocephalic, atraumatic. Pupils equal, round, reactive to light. Extraocular muscles are intact. Sclerae nonicteric without injection. NEUROLOGIC: Cranial nerves 2-12 grossly intact. Speech is fluent. The patient deemed a fair historian. EXTREMITIES: Show no clubbing, no cyanosis, no edema. MUSCULOSKELETAL: The patient has palpatory tenderness to the lateral portion of the foot on the right, negative left. Seated straight leg raising negative. [address] [address] PAIN MANAGEMENT CONSULTATION Name: ARNAUD SALAMANCA Room #: REG [facility].#: [id number] Admission: 07/17/18 Attend Phys: Darrion Warner DO Discharge: Date of : 60 Report #: [id number] Supine straight leg raising mildly positive right with only proximal distribution of radicular kind of symptoms. No distal changes. He does have some changes in skin color or texture over the lateral portion of the right foot. Temperature appears to be mildly variable when comparing left lower extremity to right. There are well-healed surgical scars on the right, negative left. Gait is antalgic favoring right lower extremity over left. He has decreased tactile sensation upon the lateral portion of the foot, nondermatomal distribution. ASSESSMENT: 1. Right foot pain. 2. Right foot neuropathy, status post surgery. 3. Chronic low back pain. 4. Chronic intractable pain. PLAN: 1. The patient has returned today in followup visit indicating lateral foot numbness, tingling, burning and electrical like sensations. He has no symptoms radiating in a typical dermatomal distribution. We were able to elicit a lumbar radicular response with supine straight leg raising on the right, is fairly typical for this patient, though MRI imaging shows no specific pathology in the lumbar spine, but the patient does note exacerbation of symptoms when his weight becomes greater and he had gained over 45 pounds since our last visits when he was at his 245-pound weight. The patient and I discussed today treatment options for his right foot pain, believed to be due to injury from a proximal femoral block for surgery, which does not correlate with his findings. He has no proximal femoral issues that would be consistent with an injury to the knee that would be utilized for the surgical approach. The block according to the patient was placed in the anterior groin right side, which would have caused symptoms radiating down the leg entirely which is not the case. It does appear his symptoms are more related to postsurgical changes that would lead to lateral foot paresthesia. The patient does have followups with his surgeon apparently in 2 months discussed further. There has been discussion these symptoms may last for up to a year. He is started on gabapentin taking 600 mg twice a day. He is reporting no improvement in symptoms nor side effects to the medication. 2. Would recommend increasing the patient's gabapentin from 600 mg twice a day all the way up to 1200 mg 3 times a day. He will be doing this by adding one tab every 3 days. He was given a titration schedule to initiate the treatment. He was given 360 tablets of this 300 mg dosing for escalation of medication. He was advised anytime during the titration if he notes improvement in symptoms, stabilize at that dose. No improvement, continue the escalation until side effects or improvement occurs. 3. The patient was provided a prescription of hydrocodone 5/325 one tab every 8 hours p.r.n. for pain. I have given the patient release today and 4 weeks from today, 2 months' worth of medication. I advised the patient to take this medication only when pain is intolerable, not to rely on the medication [facility] [address] [place] [address] PAIN MANAGEMENT CONSULTATION Name: ARNAUD SALAMANCA Room #: REG CLARI Tripp.#: [id number] Admission: 07/17/18 Attend Phys: Darrion Warner DO Discharge: Date of : 60 Report #: [id number] prophylactically. 4. Recommend the patient to undergo EMG evaluation of the right lower extremity to determine the specific source of the patient's numbness and tingling. I have referred the patient to Neurology for this EMG evaluation. 5. The patient will follow up with his surgeon in regards to further treatment options for the neuropathy of the lateral foot, nondermatomal in distribution. By: 0918 1004 Darrion Warner DO /nt
[2018-07-17 08:14] VITALS: BP 142/77
== END ==
LOC: PAIN 07:50
DX: M79.671 Pain in right foot (principal); M54.5 Low back pain; G89.29 Other chronic pain

== ENCOUNTER → 2018-09-04 | Outpatient (CLI) | payer OTHER ==
[~2018-09-04] VITALS: Ht 185.4 cm; Wt 134.5 kg
[~2018-09-04] MED LIST changes: +GABAPENTIN600 M1 PO; -MOBIC15 MG PO
--- NOTE | ~2018-09-04 | HPC ---
[facility] [address] PAIN MANAGEMENT CONSULTATION Name: ARNAUD SALAMANCA [id number] Admission: 09/04/18 Attend Phys: Darrion Warner DO Discharge: Date of : 60 Report #: [id number] THIS REPORT FOR: //name// CC: Juan Craven DATE OF SERVICE: 09/04/2018 REFERRING PHYSICIAN: Juan Zuniga DO. CHIEF COMPLAINT: Right foot pain and paresthesias, chronic low back pain. HISTORY OF PRESENT ILLNESS: As you know, the patient is a morbidly obese 58-year-old male who returns today in followup visit with ongoing low back pain, which he places pain score around 3-4/10, but has had 10/10 pain involving his right foot. He is describing symptoms of allodynia with light touch from his socks, his sheets, wearing shoes and ambulating. He is to follow up with his podiatric surgeon early in September. He is placing pain score 10/10, stating he can barely go about his activities of daily living due to ongoing pain issues. He is very displeased with his progress from this foot surgery. He indicates that he has been reducing his work activities due to his ongoing pain. Despite these changes, he has not seen much improvement. He describes his pain as aching, numbness, tingling, burning, electrical in sensation. This is involving the right foot. There is no radicular component of the patient's symptoms noted today, nor in his past history. He does have some axial back pain issues due to facet arthropathy. He returns today to make adjustments in medication therapy if possible. ALLERGIES: PENICILLIN AND AMOXICILLIN. CURRENT MEDICATIONS: Meloxicam, hydrocodone, gabapentin, multivitamin, aspirin, lisinopril, hydrochlorothiazide. SOCIAL HISTORY: The patient denies tobacco, alcohol, IV or illicit drug use. He is working, unaccompanied today. IMAGING: No new imaging available. PHYSICAL EXAMINATION: VITAL SIGNS: Blood pressure 134/67, pulse 62, respiratory rate 18 and unlabored. The patient is 97% on room air, height 6 feet 1 inch tall, weight 296.6 pounds, BMI calculated 39.1. GENERAL: Well-developed, well-nourished, well-hydrated, morbidly obese 58-year-old male. He appears his stated age. He is placing pain today at 05/22. [place] [address] PAIN MANAGEMENT CONSULTATION Name: ARNAUD SALAMANCA [id number] Admission: 09/04/18 Attend Phys: Darrion Warner DO Discharge: Date of : 60 Report #: [id number] HEENT: Normocephalic, atraumatic. Pupils equal, round, reactive to light. Extraocular muscles are intact. Sclerae nonicteric, without injection. EXTREMITIES: Show no clubbing, no cyanosis. MUSCULOSKELETAL: Right foot shows changes in skin color, when compared to the left. There are temperature changes noted on the right foot when compared to left. The nail growth appears similar. Hair growth appears similar. There is noted allodynia to light touch on the lateral aspect of the right foot in nondermatomal distribution. Well-healed surgical scars. There is palpatory tenderness over the paraspinal musculature of lower lumbar spine, no spinous process tenderness. Seated straight leg raising negative. Supine straight leg raising negative. ASSESSMENT: 1. Chronic low back pain. 2. Lumbosacral spondylosis without radicular symptoms. 3. Right foot pain. 4. Peripheral neuropathy. 5. Possible CRPS, right foot. PLAN: 1. The patient has returned today in followup visit reporting increasing right foot pain that is nondermatomal in distribution. His symptoms in the right foot are not related to his low back. Symptoms of allodynia are noted with just light touch, mainly on the lateral portion of the right foot on the dorsum as well as on the plantar surface. The patient, as you are aware, underwent foot surgery in the past and has led to ongoing pain issues. The patient has healed from a surgical standpoint, but unfortunately appears to be suffering what looks to be a complex regional pain syndrome type 1. The patient does have followup with his podiatric surgeon where they will discuss this further. I will adjust medications to help control neuropathic pain, but more aggressive treatment options may be ultimately necessary. I have asked the patient to contact his surgeon to move their appointment up so that further evaluation can be completed earlier so that treatment options can be initiated more rapidly. It does appear from the physical exam, the nondermatomal distribution and the allodynia to be a continual presentation of complex regional pain syndrome type 1 of the right foot. 2. The patient continues to experience axial back pain with no radicular component noted today, though he does carry the diagnosis of lumbar radiculopathy. We have been treating his low back symptoms with a low dose hydrocodone, but have had to increase his hydrocodone dosing due to right foot pain. He and I have discussed treatment options in the past, and his symptoms have progressively worsened, especially with increasing weight. When he was 245-250 pounds, he was doing much better, now he is at 296 pounds and is noticing increasing pain in the axial back due to facet arthropathy. I believe this is directly correlated to his weight and his changes in gait secondary to right foot pain. We will make adjustments in medication today with a plan to [facility] [address] [place] [address] PAIN MANAGEMENT CONSULTATION Name: ARNAUD SALAMANCA Room #: REG [facility].#: [id number] Admission: 09/04/18 Attend Phys: Darrion Warner DO Discharge: Date of : 60 Report #: [id number] discuss potential aggressive treatment options for his right foot pain. We reviewed the fact that opiate medications are being used to provide analgesia adequate to support activities of daily living, not attempting to achieve a specific pain score on the 0-10 Visual Analog Scale. The current opiate medications are providing sufficient analgesia to allow the patient to participate in activities of daily living. The patient is not exhibiting any aberrant behavior suggestive of drug diversion. The patient is not having any adverse reactions to medications. The patient is not suffering from daytime somnolence or mental acuity changes. The patient is managing opiate-induced constipation with appropriate cnlm-mqn-gaqdlgy agents and dietary considerations. The patient was counseled on concern for caution with operating a motor vehicle while using opiate medications. A physical exam was performed and the patient's functional status was evaluated. All patients with back pain were advised against the bed rest greater than 4 days and were advised to return to normal activities. Pain score assessment was noted and the treatment plan was reviewed with the patient. All current medications, both prescribed and OTC were reviewed and reconciled on the electronic medical record. Tobacco screening was accomplished and smoking cessation was advised when indicated. BMI was noted and diet/exercise modification was recommended for all patients following outside normal parameters. I reviewed with the patient today their responsibilities to safeguard prescription medications, reviewed their responsibility to utilize medications only as prescribed by the physician. They are to seek and receive pain medications only from 1 physician group ( [facility]). They are to use 1 pharmacy and keep the clinic informed if they change pharmacies. Their responsibilities include making followup visits in a timely fashion and to avoid abrupt discontinuation of medication usage. Their responsibilities further include bringing their medications (bottles from the pharmacy with residual pills) to the visit for possible confirmation of pill counts and the patient understands it is their responsibility to submit to random drug screens to ensure both that the medications prescribed are present, and that no other controlled substances are present. All prescriptions provided today were generated electronically. 3. The patient was provided an increase in his hydrocodone from 5/325 to 7.5/325, will be providing these 4 times a day for pain control. I have advised the patient to watch for side effects of somnolence, decreased mental acuity, disorientation, confusion, mental slowing and constipation. If he notes any side effects, discontinue use of medication immediately, call for further instructions. He was given #120 tablets of this dosing with releases of today and 4 weeks from today. 4. I have requested the patient increase his gabapentin. He is currently [address] [address] PAIN MANAGEMENT CONSULTATION Name: ARNAUD SALAMANCA Room #: REG [facility]#: [id number] Admission: 09/04/18 Attend Phys: Darrion Warner DO Discharge: Date of : 60 Report #: [id number] taking 300 mg 2 tabs 3 times a day, a total of 600 mg t.i.d. I have advised the patient to increase to 3 tabs p.o. t.i.d. for the next 3 days. If no side effects and no improvement in symptoms, then increase to 4 tabs t.i.d. He was given a refill of gabapentin to escalate dose. 5. We will see the patient back in followup visit after he has had a chance to see his foot surgeon where they will discuss the possibility of the symptoms that he is currently experiencing is complex regional pain syndrome type 1. If this is the case, the patient will return, and we will discuss options for treatment to address that issue. By: [id number] Darrion Warner DO /arabella
[2018-09-04 09:15] VITALS: BP 134/67
--- NOTE | 2018-09-04 09:28 | NUR ---
Pain Clinic Assessment: 1. History of Osteoarthritis: LOW BACK History of Rheumatoid Arthritis: Not Applicable 2. Height: 6 ft. 1 in. 185.4 cm. Weight: 296.6 lb. oz. 134.537 kg. Patient's BMI: 39.1 3. Vital Signs: BP: 134/67 Pulse: 62 Resp: 18 Temp: 02 Sat: 97 ECG Mon: 4. Pain Intensity: 10 5. Fall Risk: Dizziness: N Needs help standing or walking: N Fallen in the last 3 months: N Fall risk comments: 6. Patient on Blood Thinner: None 7. History of Hypertension: Y 8. Opioid Therapy greater than 6 weeks: Y Opiate Contract Signed: 03/22/17 9. Risk Assessment Tool Provided: TATI 10. Functional Assessment Tool: 11. Recreational Drug Use: Never Drug Type: Tobacco Use: Former Smoker Tobacco Type: Amount or Packs/day: How Many Years: Alcohol Use: No Frequency: Quant:
== END ==
LOC: PAIN 06:59
DX: M54.5 Low back pain (principal); G89.29 Other chronic pain; M79.671 Pain in right foot; Z79.899 Other long term (current) drug therapy

== ENCOUNTER → 2018-10-29 | Outpatient (CLI) | payer OTHER ==
[~2018-10-29] VITALS: Ht 185.4 cm; Wt 132.4 kg
[2018-10-29 09:07] VITALS: BP 119/67
--- NOTE | 2018-10-29 09:11 | NUR ---
Pain Clinic Assessment: 1. History of Osteoarthritis: LOW BACK History of Rheumatoid Arthritis: Not Applicable 2. Height: 6 ft. 1 in. 185.4 cm. Weight: 291.8 lb. oz. 132.360 kg. Patient's BMI: 38.5 3. Vital Signs: BP: 119/67 Pulse: 91 Resp: 14 Temp: 02 Sat: 97 ECG Mon: 4. Pain Intensity: 4 NOW 6 W/O MEDS 5. Fall Risk: Dizziness: N Needs help standing or walking: N Fallen in the last 3 months: N Fall risk comments: 6. Patient on Blood Thinner: None 7. History of Hypertension: Y 8. Opioid Therapy greater than 6 weeks: Y Opiate Contract Signed: 03/22/17 9. Risk Assessment Tool Provided: TATI 10. Functional Assessment Tool: 11. Recreational Drug Use: Never Drug Type: Tobacco Use: Former Smoker Tobacco Type: Amount or Packs/day: How Many Years: Alcohol Use: No Frequency: Quant:
--- NOTE | 2018-10-30 08:02 | HPC ---
[facility] [address] [place] [address] PAIN MANAGEMENT CONSULTATION Name: JADYNARNAUD CEBALLOS Room #: REG [facility] Qasim.#: [id number] Admission: 10/29/18 ������������������ Attend Phys: Darrion Warner DO Discharge: ������������������ Date of : 60 Report #: [id number] THIS REPORT FOR: //name// CC: Juan Warner DATE OF SERVICE: 10/29/2018 CHIEF COMPLAINT: Low back pain, right foot pain. HISTORY OF PRESENT ILLNESS: This is a very pleasant 58-year-old gentleman who returned to the pain clinic today for refill of his medications for his ongoing low back pain. Today, he places his pain score at 4/10 with his medications. He tells me that his right ankle, foot is slowly getting better. He attempted to take the gabapentin that Dr. Warner prescribed in August as 1200 mg 3 times a day. The patient tells me he was unable to function at that dose. He has since decreased it to 600 in the morning and 300 midday and 600 at night. He tells me that this is very beneficial in helping with his right ankle pain and no longer headley and throbs though it does cause him some discomfort if he is up on it walking significant amount of time each day. He has had two injections from his orthopedic or fiberglass technician in his ankle since we last saw him as well. The patient tells me that he is started an exercise program. He is trying to lose some weight. He is down 6 pounds since his last visit. He joined [employer]. He tells me he felt much better when he was at a lower weight and Dr. Warner encouraged him to decrease his weight again since it had slowly creped up on him. The patient is continuing to work on that. He feels that his pain pills will help him more if he was able to decrease his weight again for his lower back pain. The patient tells me he would like a refill of his pain medicine today, but does not need a refill of his gabapentin since he has several pills left since he had decreased the dose. ALLERGIES: PENICILLIN and AMOXICILLIN. CURRENT LIST OF MEDICATIONS: Gabapentin 600 mg in the morning and 300 midday and 600 at night and hydrocodone 7.5/325 up to 4 times a day, Meloxicam 7.5 mg daily, multivitamin daily, aspirin 81 mg daily, lisinopril/hydrochlorothiazide daily. PQRS: 1. The patient has osteoarthritis in his lower back. Denies any rheumatoid arthritis. 2. Height is 6 feet 1 inch, weight is 291. BMI is 38.5. 3. Vital signs: Blood pressure 119/67, pulse is 91, respirations 14, oxygen sat is 97%. 4. Pain score is 4/10. 5. The patient denies dizziness, does not need help walking or standing, has [address] [address] PAIN MANAGEMENT CONSULTATION Name: JADYNARNAUD LIN [facility] [id number] Admission: 10/29/18 ������������������ Attend Phys: Darrion Warner DO Discharge: ������������������ Date of : 60 Report #: [id number] not fallen in the last 3 months. 6. The patient is not on a blood thinner, but does take medicines for hypertension. 7. Opioid therapy is greater than 6 weeks; therefore, an opiate signed contract is on the chart. 8. Risk assessment tool is low. His functional assessment is 26/70. 9. Recreational drug use. He denies smoking currently. He is a former smoker though and does not drink alcohol. We did check the prescription monitoring system, the patient is filling appropriately for his medications. He is on time for his prescription refill today. We will check a random drug screen on this patient today since it has been greater than a year since his last random screen. The patient tells me that he does safeguard his medications. PHYSICAL EXAMINATION: GENERAL: This is a well-developed, well-nourished, well-hydrated, morbidly obese 58-year-old gentleman that appears his stated age. Placing his pain score today at 4/10. HEENT: Normocephalic, atraumatic. Pupils equal, round, and reactive to light. Extraocular muscles are intact. EXTREMITIES: No clubbing, no cyanosis. MUSCULOSKELETAL: The patient complains of tenderness in his right foot. I did not inspect for allodynia today. The patient tells me he is only able to wear tennis shoes because otherwise, his foot is swollen and unable to wear work boots for his job. A 1+ edema noted in his lower extremity. Straight leg raising is negative. The patient walks with a mild antalgic gait. Lower extremity strength judged to be 5/5 in all major muscle groups. ASSESSMENT: 1. Chronic low back pain. 2. Lumbosacral spondylosis without radicular symptoms. 3. Right foot pain. 4. Peripheral neuropathy. We reviewed the fact that opiate medications are being used to provide analgesia adequate to support activities of daily living, not attempting to achieve a specific pain score on the 0-10 Visual Analog Scale. The current opiate medications are providing sufficient analgesia to allow the patient to participate in activities of daily living. The patient is not exhibiting any aberrant behavior suggestive of drug diversion. The patient is not having any adverse reactions to medications. The patient is not suffering from daytime somnolence or mental acuity changes. The patient is managing opiate-induced constipation with appropriate akrb-sri-czuoxpl agents and dietary considerations. The patient was counseled on concern for caution with operating a motor vehicle while using opiate medications. A physical exam was performed and the patient's functional status was evaluated. [address] [address] PAIN MANAGEMENT CONSULTATION Name: ARNAUD SALAMANCA Room #: REG [facility] Qasim.#: [id number] Admission: 10/29/18 ������������������ Attend Phys: Darrion Warner DO Discharge: ������������������ Date of : 60 Report #: [id number] All patients with back pain were advised against the bed rest greater than 4 days and were advised to return to normal activities. Pain score assessment was noted and the treatment plan was reviewed with the patient. All current medications, both prescribed and OTC were reviewed and reconciled on the electronic medical record. Tobacco screening was accomplished and smoking cessation was advised when indicated. BMI was noted and diet/exercise modification was recommended for all patients following outside normal parameters. I reviewed with the patient today their responsibilities to safeguard prescription medications, reviewed their responsibility to utilize medications only as prescribed by the physician. They are to seek and receive pain medications only from 1 physician group ( [facility]). They are to use 1 pharmacy and keep the clinic informed if they change pharmacies. Their responsibilities include making followup visits in a timely fashion and to avoid abrupt discontinuation of medication usage. Their responsibilities further include bringing their medications (bottles from the pharmacy with residual pills) to the visit for possible confirmation of pill counts and the patient understands it is their responsibility to submit to random drug screens to ensure both that the medications prescribed are present, and that no other controlled substances are present. All prescriptions provided today were generated electronically. PLAN: 1. The patient returned to the pain clinic today for refill of his medications. We discussed treatment options. The patient tells me that he is taking his hydrocodone 7.5 three times a day every day and requiring a fourth pill when he is working on his job site and actively walking. The patient feels like the increase that Dr. Warner did in the last visit was very beneficial and would like a refill of his med, hydrocodone today. 2. The patient tells me he tried to increase his gabapentin to 1200 mg 3 times a day. The patient was having significant side effects. He had several cognitive issues that arose with the higher dose, so he decreased his medicine and has found a very therapeutic dose for him being gabapentin 600 mg twice a day and 300 mg once a day. The patient tells me he does not need any medication refills for this medicine today since Dr. Warner had given him plenty of medications at his last visit to titrate up to the higher dose. 3. The patient tells me that he has started working out. We encouraged him today talking about various activities that would help him increase his heart rate, but not put too much stress on his right foot. This includes rowing the elliptical in the recumbent bike. The patient tells me he has been using a treadmill. He is trying to decrease his way to help his low back pain. We encouraged the patient to continue with his exercise program in the next few months. 4. The patient was given scripts for hydrocodone 7.5, #120 today for today and 4-week. We will collect an oral swab specimen for drug screen and the patient [address] [address] PAIN MANAGEMENT CONSULTATION Name: ARNAUD SALAMANCA Room #: REG [facility]#: [id number] Admission: 10/29/18 ������������������ Attend Phys: Darrion Warner, DO Discharge: ������������������ Date of : 60 Report #: [id number] will make appointment for 2 months for a followup visit. 5. Dr. Darrion Warner did see the patient and collaborated in care today. ��������������������������������������������� <ELECTRONICALLY SIGNED> ���������������������������������������� By: Anca Liz ��������������������������������������������� 10/30/18 [id number] Anca Liz /nt
== END ==
LOC: PAIN 07:01
DX: M47.817 Spondylosis without myelopathy or radiculopathy, lumbosacral region (principal); M79.671 Pain in right foot; G62.9 Polyneuropathy, unspecified; Z79.899 Other long term (current) drug therapy

== ENCOUNTER → 2018-12-25 | Outpatient (CLI) | payer OTHER ==
[~2018-12-25] VITALS: Ht 185.4 cm; Wt 131.5 kg
[2018-12-25 08:53] VITALS: BP 135/76
--- NOTE | 2018-12-25 09:02 | NUR ---
Pain Clinic Assessment: 1. History of Osteoarthritis: LOW BACK History of Rheumatoid Arthritis: Not Applicable 2. Height: 6 ft. 1 in. 185.4 cm. Weight: 290.0 lb. oz. 131.544 kg. Patient's BMI: 38.3 3. Vital Signs: BP: 135/76 Pulse: 84 Resp: 18 Temp: 02 Sat: 97 ECG Mon: 4. Pain Intensity: 7 back 9 foot 5. Fall Risk: Dizziness: N Needs help standing or walking: N Fallen in the last 3 months: N Fall risk comments: 6. Patient on Blood Thinner: None 7. History of Hypertension: Y 8. Opioid Therapy greater than 6 weeks: Y Opiate Contract Signed: 03/22/17 9. Risk Assessment Tool Provided: TATI 10. Functional Assessment Tool: 11. Recreational Drug Use: Never Drug Type: Tobacco Use: Former Smoker Tobacco Type: Amount or Packs/day: How Many Years: Alcohol Use: No Frequency: Quant:
--- NOTE | 2018-12-26 07:57 | HPC ---
[facility] [address] [place] [address] PAIN MANAGEMENT CONSULTATION Name: JADYNARNAUD CEBALLOS Room #: REG [facility] Loan#: [id number] Admission: 12/25/18 ������������������ Attend Phys: Anca Liz Discharge: ������������������ Date of : 60 Report #: [id number] THIS REPORT FOR: //name// CC: Anca Zuniga DATE OF SERVICE: 12/25/2018 CHIEF COMPLAINT: Low back pain and right foot pain. HISTORY OF PRESENT ILLNESS: This is a very pleasant, very anxious 58-year-old gentleman today, who returns to the pain clinic for refill of his medications. He tells me that he has been weaning himself off his gabapentin, he was on 1200 mg 3 times a day. Today, he tells me he had no gabapentin yesterday and took a 300 mg tablet this morning. He tells me that his orthopedic doctor is going to be seeing him and he feels that he needs to get his foot taken care of, but he feels like he needs to get off all of his medications too. The patient tells me that he has been increasingly feeling anxious and nervous, also having some diarrhea. He has been decreasing his gabapentin quite quickly. I believe that he is going through withdrawal symptoms. He tells me he does not want to have the door closed today because he feels very claustrophobic in here. His pain score today is 9/10 in his foot and a 7/10 in his back. He tells me his pain is worse with activity, bending, standing and walking, better with lying down and his use of his pain medications, though he would like to get off his pain medications as well in the future. The patient tells me he is having an MRI of his right foot next week. He has seen Dr. Cuadra and he is also going to see a neurologist and have some further testing there, though he is unsure what that testing will be. He is here to discuss decreasing his medications, but wondering why he is feeling so poorly today. ALLERGIES: PENICILLIN AND AMOXICILLIN. CURRENT LIST OF MEDICATIONS: Hydrocodone 7.5/325, multivitamin, aspirin 81 mg daily, hydrochlorothiazide, lisinopril 1 daily, gabapentin at varying doses. PQRS: 1. The patient has osteoarthritis in his lower back. Denies any rheumatoid arthritis. 2. Height is 6 feet 1 inch, weight is 291. BMI is 38. 3. Vital signs: Blood pressure 135/76, pulse is 84, respirations 18, oxygen sat is 97%. 4. Pain score 7/10 in his back, 9/10 in his foot. 5. Denies dizziness. Does not need help walking or standing. He has not fallen in the last [address] [address] PAIN MANAGEMENT CONSULTATION Name: JADYNARNAUD CEBALLOS Room #: REG [facility] Loan#: [id number] Admission: 12/25/18 ������������������ Attend Phys: Anca Liz Discharge: ������������������ Date of : 60 Report #: [id number] 6. The patient is not on any blood thinners. He does take medicine for hypertension. 7. Opioid therapy is greater than 6 weeks; therefore, an opioid signed contract is on the chart. 8. Risk assessment tool is low. Functional assessment is . 9. Recreational drug use, he denies. He is a former smoker and does not drink alcohol. We did check the prescription monitoring system. The patient is filling appropriately and due for his medications today. We are rechecking a urine drug screen on this patient today. He had one recently, though his hydrocodone was negative for this. It was oral swab that we believe the specimen was very dry and did not obtain a quality sample, so we are retesting this drug screen today. PHYSICAL EXAMINATION: GENERAL: This is a well-developed, well-nourished, well-hydrated, morbidly obese 58-year-old gentleman who appears his stated age, very anxious and nervous today, placing his current pain score from 7-9 today. HEENT: Normocephalic, atraumatic. Pupils equal, round and reactive to light. Extraocular muscles are intact. Mucous membranes are moist. EXTREMITIES: No clubbing, no cyanosis. Complains of tenderness in his right foot. I did not inspect for allodynia today. He does have a tennis shoe on this foot. It is slightly swollen. He has a new brace that he has orthotic that he has inside his shoe today. MUSCULOSKELETAL: The patient has 1+ edema in his lower extremities. Straight leg raising is negative. The patient walks with an antalgic gait. Lower extremity strength judged to be 5/5 in all major muscle groups. ASSESSMENT: 1. Chronic low back pain. 2. Right foot pain. 3. Lumbosacral spondylosis without radicular symptoms. 4. Peripheral neuropathy. We reviewed the fact that opiate medications are being used to provide analgesia adequate to support activities of daily living, not attempting to achieve a specific pain score on the 0-10 Visual Analog Scale. The current opiate medications are providing sufficient analgesia to allow the patient to participate in activities of daily living. The patient is not exhibiting any aberrant behavior suggestive of drug diversion. The patient is not having any adverse reactions to medications. The patient is not suffering from daytime somnolence or mental acuity changes. The patient is managing opiate-induced constipation with appropriate [id number] agents and dietary considerations. The patient was counseled on concern for caution with operating a motor vehicle while using opiate medications. [facility] [address] [place] [address] PAIN MANAGEMENT CONSULTATION Name: ARNAUD SALAMANCA Room #: REG [facility].#: [id number] Admission: 12/25/18 ������������������ Attend Phys: Anca Liz Discharge: ������������������ Date of : 60 Report #: [id number] A physical exam was performed and the patient's functional status was evaluated. All patients with back pain were advised against the bed rest greater than 4 days and were advised to return to normal activities. Pain score assessment was noted and the treatment plan was reviewed with the patient. All current medications, both prescribed and OTC were reviewed and reconciled on the electronic medical record. Tobacco screening was accomplished and smoking cessation was advised when indicated. BMI was noted and diet/exercise modification was recommended for all patients following outside normal parameters. I reviewed with the patient today their responsibilities to safeguard prescription medications, reviewed their responsibility to utilize medications only as prescribed by the physician. They are to seek and receive pain medications only from 1 physician group ( [facility]). They are to use 1 pharmacy and keep the clinic informed if they change pharmacies. Their responsibilities include making followup visits in a timely fashion and to avoid abrupt discontinuation of medication usage. Their responsibilities further include bringing their medications (bottles from the pharmacy with residual pills) to the visit for possible confirmation of pill counts and the patient understands it is their responsibility to submit to random drug screens to ensure both that the medications prescribed are present, and that no other controlled substances are present. All prescriptions provided today were generated electronically. PLAN: 1. We discussed treatment options with the patient today. I told the patient I believe that he has experienced some withdrawal symptoms having decreased his gabapentin, so significantly, so quickly. He was at 1200 mg 3 times a day. Currently, he took 300 mg today. He has done this decrease over the past couple of weeks. He is feeling very anxious, having difficulty catching his breath. He feels like he is being boxed in. We discussed at great length greater than 25 minutes today regarding medications. I believe that he would be able to go off his gabapentin if that is what he wishes, though I believe that medication would be more beneficial for his right foot pain than pain medications and I encouraged him to stay on the gabapentin and decrease and wean off his hydrocodone. He tells me his goal is to decrease all of his pain medications. That being said, we came up with a plan for gabapentin. He is going to take 300 mg b.i.d. for 2 weeks, then decrease to 1 tablet a day for 2 weeks, then 1 every other day for a week and then off. If he finds that his pain score escalates and his neuropathy gets worse, he is to restart his gabapentin and stay at that dose. I informed the patient even at 600 twice a day, that is a significant decrease of where he was in the past. The patient verbalizes understanding. He will take another 300 mg later tonight. 2. We discussed hydrocodone. Currently, he is at 7.5 mg tablets 4 times a day. He was wanting to decrease these as well. I encouraged him that we need to [address] [address] PAIN MANAGEMENT CONSULTATION Name: ARNAUD SALAMANCA Room #: REG [facility] Cates#: [id number] Admission: 12/25/18 ������������������ Attend Phys: Anca Liz Discharge: ������������������ Date of : 60 Report #: [id number] change one medication at a time, so we will keep his hydrocodone where it is for the next 2 months, see how he does with his gabapentin as well as finding out what the doctors tell him about his foot, then we will progress to their decreasing to 5 mg tablets and then tapering slowly off his narcotics to prevent withdrawal. 3. Dr. Darrion Warner did come and see the patient as well today and reiterated my above statements encouraging the patient to in the future go off hydrocodone and stay on the gabapentin. We will discuss this further at his next appointment. The patient will call for an appointment in 2 months' time. ��������������������������������������������� <ELECTRONICALLY SIGNED> ���������������������������������������� By: Anca Liz ��������������������������������������������� 12/26/18 [id number] Anca Liz /nt
== END ==
LOC: PAIN 06:43
DX: M47.817 Spondylosis without myelopathy or radiculopathy, lumbosacral region (principal); M54.5 Low back pain; M79.671 Pain in right foot; G62.9 Polyneuropathy, unspecified; Z79.899 Other long term (current) drug therapy

== ENCOUNTER → 2019-02-19 | Outpatient (CLI) | payer OTHER ==
[~2019-02-19] VITALS: Ht 185.4 cm; Wt 127.7 kg
[~2019-02-19] MED LIST changes: +TESTOSTERO200 MG/1 M IM
[2019-02-19 08:11] VITALS: BP 126/74
--- NOTE | 2019-02-19 08:16 | NUR ---
Pain Clinic Assessment: 1. History of Osteoarthritis: LOW BACK History of Rheumatoid Arthritis: Not Applicable 2. Height: 6 ft. 1 in. 185.4 cm. Weight: 281.6 lb. oz. 127.733 kg. Patient's BMI: 37.2 3. Vital Signs: BP: 126/74 Pulse: 76 Resp: 14 Temp: 02 Sat: 98 ECG Mon: 4. Pain Intensity: 5 5. Fall Risk: Dizziness: N Needs help standing or walking: N Fallen in the last 3 months: N Fall risk comments: 6. Patient on Blood Thinner: None 7. History of Hypertension: Y 8. Opioid Therapy greater than 6 weeks: Y Opiate Contract Signed: 03/22/17 9. Risk Assessment Tool Provided: TATI 10. Functional Assessment Tool: 11. Recreational Drug Use: Never Drug Type: Tobacco Use: Former Smoker Tobacco Type: Amount or Packs/day: How Many Years: Alcohol Use: No Frequency: Quant:
--- NOTE | 2019-02-25 07:48 | HPC ---
[facility] [address] [place] [address] PAIN MANAGEMENT CONSULTATION Name: JADYNARNAUD CEBALLOS Room #: REG [facility] Cates#: [id number] Admission: 02/19/19 ������������������ Attend Phys: Darrion Warner DO Discharge: ������������������ Date of : 60 Report #: [id number] THIS REPORT FOR: //name// CC: Juan Craven DATE OF SERVICE: 02/19/2019 REFERRING PHYSICIAN: Juan Zuniga DO. CHIEF COMPLAINT: Low back pain, right foot pain. HISTORY OF PRESENT ILLNESS: As you know, the patient is a 58-year-old male who returns today in followup visit to discuss medication management. The patient has weaned off his gabapentin and has noted escalation of right foot pain. As indicated in previous evaluations, I believe the patient may be suffering from complex regional pain syndrome of the right foot, and thus, neuropathic medications were utilized. He noted benefit with this medication. He felt that he was somewhat somnolent in the daytime hours and thus had to decrease his gabapentin dosing. He wished at last visit to come off the gabapentin entirely. We had him come off this medication, and he had a subsequent increase in pain. He wishes to adjust back to a neuropathic medication. He is also continuing to take hydrocodone on an as needed basis up to 4 times to 5 times a day depending on pain levels. He also describes increasing anxiety issues and difficulty with anxiety attacks, which he believes is exacerbating symptoms. He was started on Cymbalta by his primary care physician, did note improvement in his anxiety, but his bilateral leg pain returned that we had noticed when he was started on the medication in approximately 2 years ago. He subsequently discontinued the Cymbalta. He returns today to adjust medications to help with neuropathic pain. ALLERGIES: PENICILLIN, AMOXICILLIN. CURRENT MEDICATIONS: Hydrocodone 7.5/325 one tab p.o. q.8 hours p.r.n. pain, multivitamin 1 tab per day, aspirin 81 mg per day, lisinopril/hydrochlorothiazide 10/12.5 mg once a day, aspirin 81 mg per day, testosterone 200 mg intramuscular every 2 weeks. SOCIAL HISTORY: The patient reports he is a nonsmoker. Denies IV or illicit drug use. Denies any chronic alcohol use. He is working, not receiving workmen compensation, unaccompanied today. IMAGING: No new imaging available. PHYSICAL EXAMINATION: VITAL SIGNS: Blood pressure 126/74, pulse 76, respiratory rate 14 and [facility] [address] [place] [address] PAIN MANAGEMENT CONSULTATION Name: ARNAUD SALAMANCA Room #: REG [facility].#: [id number] Admission: 02/19/19 ������������������ Attend Phys: Darrion Warner DO Discharge: ������������������ Date of : 60 Report #: [id number] unlabored. The patient is 98% on room air, height 6 feet 1 inch tall, weight 281.6 pounds, BMI calculated 37.2. GENERAL: Well-developed, well-nourished, well-hydrated exogenously obese, 58-year-old male, appearing stated age, pain is rated at 5/10, mainly involving the right foot, for which he describes this as numbness, tingling, burning, electrical in sensation. HEENT: Normocephalic, atraumatic. Pupils equal, round, reactive to light. Extraocular muscles are intact. Speech fluent. EXTREMITIES: Show no clubbing, no cyanosis, no edema. MUSCULOSKELETAL: There is allodynia and hyperalgesia noted over the right foot. Weightbearing exacerbates right foot pain. The patient states his socks and shoes exacerbate his symptoms. There appears to be some skin color changes. There is temperature variation between the left foot and right foot of about 5 degrees. There is palpatory tenderness over the paraspinal musculature of lower lumbar spine. No spinous process tenderness. Lumbar provocation testing is met with increasing overall pain. ASSESSMENT: 1. Right foot pain. 2. Complex regional pain syndrome type 1 of the right foot. 3. Lumbosacral spondylosis without radiculopathy. 4. Peripheral neuropathy. 5. Chronic intractable pain. PLAN: 1. The patient returns today in followup visit having indicated increasing right foot pain that he describes as burning, numbness, tingling and electrical in sensation with the discontinuation of gabapentin. He discontinued gabapentin as he believes this was causing daytime somnolence. His somnolence did improve, but unfortunately his pain intensified significantly. He returns to make adjustments in the therapy to address right foot pain, believed to be due to complex regional pain syndrome type 1. 2. The patient and I discussed at length the efficacy of the gabapentin. He noted good benefit at about 600 mg b.i.d. Unfortunately, the patient could not take the medication due to the effects of sleepiness and disorientation. We recommend the patient restart gabapentin, but at this point, we will be utilizing the long-acting form of this medication, which has a significantly reduced side effect profile. We will start the patient on Gralise for neuropathic pain control. He has trialled Cymbalta, amitriptyline, nortriptyline, Lyrica and immediate release Neurontin, all of which caused side effects, could not tolerate or no improvement in symptoms except for the Neurontin. Neurontin gave good benefit, but did not provide lack of side effects. We have provided the patient with the Gralise today. He will take this medication as directed. Once he reaches an efficacious level, he will contact our clinic, and we will provide him a full prescription. 3. The patient was provided refill prescription of hydrocodone 7.5/325. We [address] [address] PAIN MANAGEMENT CONSULTATION Name: ARNAUD SALAMANCA Room #: REG [facility] Cates#: [id number] Admission: 02/19/19 ������������������ Attend Phys: Darrion Warner DO Discharge: ������������������ Date of : 60 Report #: [id number] have requested the patient to cut these tablets in half and use them up to 4-5 times a day. We are attempting to wean off the opioids as they are not beneficial for his neuropathic pain of right foot. The patient is amenable to this adjustment. He was given a prescription of hydrocodone 7.5/325 one tab p.o. q 6 hours p.r.n. pain, #120, to release today and 4 weeks from today. The medications are to be utilized over a longer period than 2 months as we are going to be using half a dose of the tablets only 4 times a day. 4. The patient is following up with his orthopedic surgeon in regards to his right foot symptoms. Apparently, he had MRI to undergo but could not do this because of anxiety issues. They are going to adjust medications in hopes of improving his anxiety, which will allow him to undergo the MRI, and we can further evaluate this right foot. We will await the findings. 5. We will see the patient back in followup visit for medication management. He will contact our clinic once he reaches an efficacious level of the Gralise, will then call in a full prescription. ��������������������������������������������� <ELECTRONICALLY SIGNED> ���������������������������������������� By: Darrion Warner DO ��������������������������������������������� 02/25/19 0748 [id number] Darrion Warner DO /nt
== END ==
LOC: PAIN 06:51
DX: M47.817 Spondylosis without myelopathy or radiculopathy, lumbosacral region (principal); G90.521 Complex regional pain syndrome I of right lower limb; G89.4 Chronic pain syndrome; G62.9 Polyneuropathy, unspecified; Z79.899 Other long term (current) drug therapy

== ENCOUNTER → 2019-04-02 | Outpatient (CLI) | payer OTHER ==
[~2019-04-02] VITALS: Ht 185.4 cm; Wt 128.0 kg
--- NOTE | ~2019-04-02 | HPC ---
[facility] [place] [address] PAIN MANAGEMENT CONSULTATION Name: JDAYNARNAUD CEBALLOS Room #: REG CLARI Tripp.#: [id number] Admission: 04/02/19 Attend Phys: Darrion Warner DO Discharge: Date of : 60 Report #: [id number] THIS REPORT FOR: //name// CC: VIKKI Warner DATE OF SERVICE: 04/02/2019 CHIEF COMPLAINT: Low back pain, right foot pain. HISTORY OF PRESENT ILLNESS: As you know, the patient is very anxious 59-year-old male who returns today in followup visit with continued low back pain for which he takes hydrocodone on a p.r.n. basis. He also complains of ongoing right foot pain due to complex regional pain syndrome type 1. He returns today in followup visit to discuss treatment options. He has restarted his gabapentin with improved efficacy. He is now requesting a reduction to slowly come off hydrocodone as he does not wish to continue to take opioid medications. He returns today in followup visit to discuss treatment options and his ongoing right foot pain due to complex regional pain syndrome, unresolved with increased gabapentin and opioid therapy. He denies new injury or trauma. ALLERGIES: PENICILLIN AND AMOXICILLIN. CURRENT MEDICATIONS: Hydrocodone, multivitamin, aspirin, hydrochlorothiazide, lisinopril, and gabapentin. SOCIAL HISTORY: The patient reports he has continued to be a nonsmoker. Denies IV or illicit drug use. Denies any chronic alcohol use. He is accompanied by his presents in room today. IMAGING: There is no new imaging available. PHYSICAL EXAMINATION: VITAL SIGNS: Blood pressure 117/82, pulse 94, respiratory rate 16 and unlabored. The patient is 98% on room air, height 6 feet 1 inch tall, weight 282.2 pounds, BMI calculated 37.2. GENERAL: Well-developed, well-nourished, well-hydrated exogenously obese 59-year-old male appearing stated age. He is in acute distress, placing current pain score anywhere from 4-10/10. HEENT: Normocephalic, atraumatic. Pupils are equal, round, reactive to light. Extraocular muscles are intact. Sclerae nonicteric, without injection. EXTREMITIES: Show no clubbing, no cyanosis. There is noted skin color changes on the right foot compared to left, temperature changes are variable by at least 3 degrees on the dorsum of the foot, plantar surfaces are approximately [address] [address] PAIN MANAGEMENT CONSULTATION Name: ARNAUD SALAMANCA Room #: REG CLI [facility]#: [id number] Admission: 04/02/19 Attend Phys: Darrion Warner DO Discharge: Date of : 60 Report #: [id number] degrees compared to the left. There are noted rubor and color changes over the right foot indicative of a complex regional pain syndrome. ASSESSMENT: 1. Complex regional pain syndrome type 1. 2. Chronic right foot pain. 3. Lumbosacral spondylosis without radicular symptoms. 4. Peripheral neuropathy. PLAN: 1. The patient has returned today in followup visit to discuss treatment options for his ongoing right foot pain. It appears that de-escalation in gabapentin has been somewhat beneficial, but has not resolved the symptoms entirely. We recommend either looking towards increasing neuropathic pain medications or possibly pushing forward for a spinal cord stimulator. After a long discussion with the patient today, we did decide the possibility of a spinal cord stimulator may be necessary. I have given the patient information about spinal cord stimulator technology. He will review this at his earliest convenience. If he believes this is a beneficial option for treatment, he will contact our clinic to receive referrals to Psychiatry as part of the workup for this device. He is going to follow up with his foot surgeon in the next couple of days. He will contact our clinic once he has completed this evaluation, moving forward the spinal cord stimulator can be done to provide benefit not only for the right foot, but possibly even the low back. He will consider this option and contact our clinic. 2. The patient and I discussed treatment options and ways to reduce his reliance on medication. He is hopeful that he can reduce his hydrocodone therapy over time as he wants to come off these medications. I advised the patient he can just discontinue the medication as he has been on it for an extended period of time and likely have withdrawal effects. We recommend that he take 4 tablets of the 7.5 mg for 1 month, then reduce to one half tablet every 5 hours for at least 2 weeks, then reduce to 4 half tablets for 2 weeks, continuing to reduce the medication by one half tablet for 2-week period of time to come off medication entirely. He was given prescriptions of hydrocodone 7.5/325, #120 releasing today, which will allow him to wean off the medication. We will follow him up in a couple of weeks to discuss efficacy of reduction and to discuss also the possibility of undergoing spinal cord stimulator trial implantation for complex regional pain syndrome type 1, right-sided foot. 3. The patient will discuss with his primary care physician anxiolytic medications. We do not recommend benzodiazepines in conjunction with opioid medication as the polypharmacy issues can become quite profound. Recommend medication such as anxiolytic formulations of antidepressants. He has been on Cymbalta and did not like the effects, though that leaves other options such as Lexapro, Prozac, or sertraline as options. [facility] [address] [place] [address] PAIN MANAGEMENT CONSULTATION Name: ARNAUD SALAMANCA Room #: REG CLARI Cates#: [id number] Admission: 04/02/19 Attend Phys: Darrion Warner DO Discharge: Date of : 60 Report #: [id number] 4. We will see the patient back in followup visit to review efficacy of the reducing the medication and to further discuss spinal cord stimulator. By: [id number] Darrion Warner DO /nt
[2019-04-02 08:48] VITALS: BP 117/82
--- NOTE | 2019-04-02 09:00 | NUR ---
Pain Clinic Assessment: 1. History of Osteoarthritis: LOW BACK History of Rheumatoid Arthritis: Not Applicable 2. Height: 6 ft. 1 in. 185.4 cm. Weight: 282.2 lb. oz. 128.005 kg. Patient's BMI: 37.2 3. Vital Signs: BP: 117/82 Pulse: 94 Resp: 16 Temp: 02 Sat: 98 ECG Mon: 4. Pain Intensity: BACK 10 FOOT 4 5. Fall Risk: Dizziness: N Needs help standing or walking: N Fallen in the last 3 months: N Fall risk comments: 6. Patient on Blood Thinner: None 7. History of Hypertension: Y 8. Opioid Therapy greater than 6 weeks: Y Opiate Contract Signed: 03/22/17 9. Risk Assessment Tool Provided: TATI 10. Functional Assessment Tool: 11. Recreational Drug Use: Never Drug Type: Tobacco Use: Former Smoker Tobacco Type: Amount or Packs/day: How Many Years: Alcohol Use: No Frequency: Quant:
== END ==
LOC: PAIN 06:39
DX: M47.817 Spondylosis without myelopathy or radiculopathy, lumbosacral region (principal); M79.671 Pain in right foot; G89.29 Other chronic pain; G62.9 Polyneuropathy, unspecified; Z88.0 Allergy status to penicillin; Z88.8 Allergy status to other drugs, medicaments and biological substances; Z79.899 Other long term (current) drug therapy

== ENCOUNTER → 2019-05-06 | Outpatient (CLI) | payer OTHER ==
[~2019-05-06] VITALS: Ht 185.4 cm; Wt 127.6 kg
[~2019-05-06] MED LIST changes: +AMBIEN 5 MG TABL5 M1 PO; +GRALISE600 MG PO; +TYLENOL EXTRA500 MG PO
[2019-05-06 08:58] VITALS: BP 142/75
--- NOTE | 2019-05-06 09:12 | NUR ---
Pain Clinic Assessment: 1. History of Osteoarthritis: LOW BACK History of Rheumatoid Arthritis: DENIES 2. Height: 6 ft. 1 in. 185.4 cm. Weight: 281.4 lb. oz. 127.643 kg. Patient's BMI: 37.1 3. Vital Signs: BP: 142/75 Pulse: 93 Resp: 18 Temp: 02 Sat: 96 ECG Mon: 4. Pain Intensity: 3 5. Fall Risk: Dizziness: N Needs help standing or walking: N Fallen in the last 3 months: N Fall risk comments: 6. Patient on Blood Thinner: None 7. History of Hypertension: Y 8. Opioid Therapy greater than 6 weeks: Y Opiate Contract Signed: 03/22/17 9. Risk Assessment Tool Provided: TATI 10. Functional Assessment Tool: 11. Recreational Drug Use: Never Drug Type: Tobacco Use: Former Smoker Tobacco Type: Amount or Packs/day: How Many Years: Alcohol Use: No Frequency: Quant:
--- NOTE | 2019-05-07 08:45 | HPC ---
[facility] [place] [address] PAIN MANAGEMENT CONSULTATION Name: JADYNARNAUD CEBALLOS Room #: REG CLARI Cates#: [id number] Admission: 05/06/19 Attend Phys: Anca Liz Discharge: Date of : 60 Report #: [id number] THIS REPORT FOR: //name// CC: Anca Liz Juan Rauschradha DATE OF SERVICE: 05/06/2019 CHIEF COMPLAINT: Low back pain, right foot pain. HISTORY OF PRESENT ILLNESS: This is a 59-year-old gentleman who returns to the pain clinic today for refill of his gabapentin medication. He is rating his pain score of 3/10 today as an achy numbness, pain. His pain is worse in his lower back with prolonged sitting and worse in his foot when he is walking and standing too long. His medication, he finds very beneficial. The patient reports that he is no longer on hydrocodone. He was able to wean off this medication that was causing significant anxiety for him. He reports to me he did need to be admitted to [facility] for 4 days to wean off of this medicine. He could not taper down on his own without significant anxiety. He tells me now he is like a new person. All of his anxiety has gone. He feels much better. His pain score is still at a low level. He believes that the hydrocodone was causing all the anxiety and the most relief that he was getting for medications was related to the Gralise (gabapentin), not from the hydrocodone. The patient is going to have a spinal cord stimulator psych evaluation next week and would like to continue on that process to try and have a spinal cord stimulator trial to see if that does help relieve his right foot pain from his complex regional pain syndrome type 1. He feels that he is slowly getting better, but he is hopeful that it will help to relieve more of his pain. ALLERGIES: PENICILLIN and AMOXICILLIN. CURRENT LIST OF MEDICATIONS: Gralise 600 mg at bedtime, Ambien p.r.n., Tylenol Extra Strength 2 tablets a day, testosterone every 2 weeks, multivitamin, aspirin and lisinopril/hydrochlorothiazide daily. PQRS: 1. He has osteoarthritis in his lumbar spine. Denies any rheumatoid arthritis. 2. Height is 6 feet 1 inch, weight is 282, BMI is 37. 3. Vital signs; 142/75, pulse is 93, respirations 18, oxygen sat is 96. Fall risk. Denies dizziness. Does not need help walking or standing, has not fallen in the last 3 months. The patient is not on any blood thinners, but does take medicine for hypertension. 4. Opioid therapy is greater than 6 weeks; no longer on them now. Risk [address] [address] PAIN MANAGEMENT CONSULTATION Name: ARNAUD SALAMANCA Room #: REG CLARI Cates#: [id number] Admission: 05/06/19 Attend Phys: Anca Liz Discharge: Date of : 60 Report #: [id number] assessment is low. Functional assessment is 26/70. 5. Recreational drug use, he denies. He is a former smoker and does not drink alcohol. PHYSICAL EXAMINATION: GENERAL: This is a well-developed, well-nourished, well-hydrated, exogenous obese 59-year-old gentleman who appears his stated age, placing his current pain score at 3 today. HEENT: Normocephalic, atraumatic. Pupils equal, round and reactive to light. Mucous membranes are moist. EXTREMITIES: No clubbing, no cyanosis. There are some skin color changes on his right foot compared to the left. Noted rubor and color changes over the right foot indicative of complex regional pain syndrome. He has lumbar spine tenderness with no radicular symptoms. IMPRESSION: 1. Complex regional pain syndrome type 1. 2. Chronic right foot pain. 3. Lumbosacral spondylosis without radicular symptoms. 4. Peripheral neuropathy. PLAN: 1. We discussed treatment options with the patient today. Since he is no longer on his hydrocodone, he did return one of his prescriptions that he did not fill. We will destroy that medication. The patient tells us that he is feeling so much better since he has been off that with less anxiety. 2. We discussed his Gralise and transition it to gabapentin. He is hopeful that he could transition back to gabapentin because the Gralise is slightly more expensive though he has had good results with this medication. It is mostly a cost factor the conversion would be 600 mg 3 times a day of gabapentin. The patient is going to start with 1 at bedtime and 1 in the morning. If this is not beneficial in controlling his pain, he will increase his gabapentin to 1 in the morning and 2 at night for a total of 3 tablets a day. This will be equal equivalent dosing to his Gralise 600 at bedtime. If it is not beneficial, he will return to his previous 600 dose of Gralise. 3. The patient is to have his spinal cord stimulator psych evaluation next week. We will await that report and then sent off for approval for a spinal cord stimulator for his complex regional pain syndrome of his right foot. 4. The patient is seen with Dr. Darrion Warner who also collaborated care today. <ELECTRONICALLY SIGNED> By: Anca Liz 05/07/19 [id number] [id number] Anca posada
== END ==
LOC: PAIN 06:51
DX: G90.50 Complex regional pain syndrome I, unspecified (principal); M47.817 Spondylosis without myelopathy or radiculopathy, lumbosacral region; G62.9 Polyneuropathy, unspecified; M79.671 Pain in right foot

== ENCOUNTER → 2019-06-04 | Outpatient (CLI) | payer OTHER ==
[~2019-06-04] VITALS: Ht 185.4 cm; Wt 131.1 kg
[2019-06-04 08:10] VITALS: BP 148/93
--- NOTE | 2019-06-04 08:14 | NUR ---
Pain Clinic Assessment: 1. History of Osteoarthritis: LOW BACK History of Rheumatoid Arthritis: DENIES 2. Height: 6 ft. 1 in. 185.4 cm. Weight: 289.0 lb. oz. 131.090 kg. Patient's BMI: 38.1 3. Vital Signs: BP: 148/93 Pulse: 72 Resp: 16 Temp: 02 Sat: 95 ECG Mon: 4. Pain Intensity: 1 back 6 foot 5. Fall Risk: Dizziness: N Needs help standing or walking: N Fallen in the last 3 months: N Fall risk comments: 6. Patient on Blood Thinner: None 7. History of Hypertension: Y 8. Opioid Therapy greater than 6 weeks: Y Opiate Contract Signed: 03/22/17 9. Risk Assessment Tool Provided: TATI 10. Functional Assessment Tool: 11. Recreational Drug Use: Never Drug Type: Tobacco Use: Former Smoker Tobacco Type: Amount or Packs/day: How Many Years: Alcohol Use: No Frequency: Quant:
--- NOTE | 2019-06-17 12:47 | HPC ---
[facility] [place] [address] PAIN MANAGEMENT CONSULTATION Name: JADYNARNAUD CEBALLOS Room #: REG [facility] MJaye.#: [id number] Admission: 06/04/19 Attend Phys: Darrion Warner DO Discharge: Date of : 60 Report #: [id number] THIS REPORT FOR: //name// CC: Juan Craven DATE OF SERVICE: 06/04/2019 CHIEF COMPLAINT: Chronic low back pain, right foot pain status post surgery. HISTORY OF PRESENT ILLNESS: As you know, the patient is a 59-year-old male who returns today in followup visit for further adjustments in medication management. He is now off all opioid medications and states he is feeling better overall from a standpoint of anxiety and from mentation standpoint. He does return today, stating the Gralise therapy was beneficial for pain control, but unfortunately it is "too expensive." He returns for adjustments in his medication management in hopes of improving pain. The patient reports that he is continuing to follow up with his foot surgeon. There has been some suggestions of EMG to be obtained of the right lower extremity. We are in full favor of this evaluation. He returns today for adjustments in medication management. He is placing his pain score around 1/10 involving the low back, right foot 6/10, unaffected by ambulation. ALLERGIES: PENICILLIN, AMOXICILLIN. CURRENT MEDICATIONS: Gralise 600 mg p.o. at bedtime, Ambien 10 mg at bedtime, Tylenol Extra Strength 2 tabs 3 times a day, testosterone twice a week, multivitamin 1 tab per day, aspirin 81 mg per day, lisinopril/hydrochlorothiazide 10/12.5 mg once a day. SOCIAL HISTORY: The patient denies tobacco, alcohol, IV or illicit drug use. He is working, not receiving workmen's compensation, unaccompanied today. IMAGING: No new imaging available. PHYSICAL EXAMINATION: VITAL SIGNS: Blood pressure 140/93, pulse 72, respiratory rate 16 and unlabored. The patient is 95% on room air, height 6 feet 1 inch tall, weight 289 pounds, BMI calculated 38.1. GENERAL: Well-developed, well-nourished, well-hydrated exogenously obese 59-year-old male appearing stated age, pain is rated around 1/10 in the low back and 6/10 right foot. HEENT: Normocephalic, atraumatic. Pupils equal, round, reactive to light. EXTREMITIES: Show no clubbing, no cyanosis, and no edema. MUSCULOSKELETAL: Lower extremity strength equal and symmetrical 5/5. Pain is [address] [address] PAIN MANAGEMENT CONSULTATION Name: ARNAUD SALAMANCA Room #: REG [facility].#: [id number] Admission: 06/04/19 Attend Phys: Darrion Warner DO Discharge: Date of : 60 Report #: [id number] elicited with plantar flexion, dorsiflexion of the right foot. There is allodynia and hyperalgesia noted over the right foot. Lumbar provocation testing is met with slight axial back pain. ASSESSMENT: 1. Peripheral neuropathy of the right foot. 2. Chronic right foot pain. 3. Lumbosacral spondylosis without radicular symptoms. 4. Chronic intractable pain. PLAN: 1. The patient has returned today in followup visit stating that the Gralise, he believes is beneficial for pain control, but is too costly for the patient to continue the medication at this time. He has requested that we make adjustments in medication back to the immediate release gabapentin, which is more affordable on the patient's current insurance plan. I have agreed to make this adjustment today. A 600 mg once a day tablet of Gralise equates to approximately 600 mg of immediate release medication 3 times a day. I will make this adjustment today. 2. The patient was provided prescription of gabapentin 600 mg dose 1 tab p.o. t.i.d. I have given the patient #90 tablets, 3 refills essentially 4 months' worth of medication. The patient will watch for any side effects with the initiation of the immediate release medication including somnolence, decreased mental acuity, disorientation, confusion, mental slowing. We are hopeful the patient will see good benefit with this medication. 3. The patient will keep us apprised of further evaluation. He has with his foot surgeon and they are workup in regards to the patient's ongoing foot pain. We have requested information to be sent directly to us. 4. We will see the patient back in followup visit once he has completed a final workup with his orthopedic surgeon in regards to his right foot pain and discuss other treatment options. <ELECTRONICALLY SIGNED> By: Darrion Warner DO 06/17/19 [id number] Darrion Warner DO /nt
== END ==
LOC: PAIN 06:43
DX: M47.817 Spondylosis without myelopathy or radiculopathy, lumbosacral region (principal); M79.671 Pain in right foot; G89.29 Other chronic pain; G62.9 Polyneuropathy, unspecified; Z88.1 Allergy status to other antibiotic agents; Z88.0 Allergy status to penicillin; Z79.899 Other long term (current) drug therapy

== ENCOUNTER → 2019-10-21 | Outpatient (CLI) | payer OTHER ==
[~2019-10-21] VITALS: Ht 185.4 cm; Wt 128.3 kg
[~2019-10-21] MED LIST changes: +NUCYNTA50 MG PO
[2019-10-21 09:42] VITALS: BP 120/82
--- NOTE | 2019-10-21 09:57 | NUR ---
Pain Clinic Assessment: 1. History of Osteoarthritis: LOW BACK History of Rheumatoid Arthritis: DENIES 2. Height: 6 ft. 1 in. 185.4 cm. Weight: 282.8 lb. oz. 128.278 kg. Patient's BMI: 37.3 3. Vital Signs: BP: 120/82 Pulse: 76 Resp: 16 Temp: 02 Sat: 98 ECG Mon: 4. Pain Intensity: 1 back 6 foot 5. Fall Risk: Dizziness: N Needs help standing or walking: N Fallen in the last 3 months: N Fall risk comments: 6. Patient on Blood Thinner: None 7. History of Hypertension: Y 8. Opioid Therapy greater than 6 weeks: Y Opiate Contract Signed: 03/22/17 9. Risk Assessment Tool Provided: TATI 10. Functional Assessment Tool: 11. Recreational Drug Use: Never Drug Type: Tobacco Use: Former Smoker Tobacco Type: Amount or Packs/day: How Many Years: Alcohol Use: No Frequency: Quant:
--- NOTE | 2019-10-21 13:44 | HPC ---
[facility] [place] [address] PAIN MANAGEMENT CONSULTATION Name: ARNAUD SALAMANCA Room #: REG [facility] Cates#: [id number] Admission: 10/21/19 Attend Phys: Darrion Warner DO Discharge: Date of : 60 Report #: [id number] THIS REPORT FOR: cc: Juan Zuniga Gregg R. DO Johnson, James E. DO ~ DATE OF SERVICE: 10/21/2019 CHIEF COMPLAINT: Right foot pain. HISTORY OF PRESENT ILLNESS: As you know, the patient is a 59-year-old male followed by our services for an extended period of time for ongoing right foot pain status post surgery. The patient indicates he has discussed his case with a new foot surgeon who has advised the patient it does appear that he is suffering from complex regional pain syndrome type 1, possibly type 2. He was referred back to our clinic to discuss treatment options. He states that he has also been referred to another pain physician, which we encouraged if the patient wishes to do so. He returns today and he discussed options for treatment that we would be willing to offer. ALLERGIES: PENICILLIN, AMOXICILLIN. CURRENT MEDICATIONS: Gabapentin 600 mg b.i.d., Ambien 10 mg p.o. at bedtime, Tylenol Extra Strength 2 tabs 3 times a day, testosterone twice a week, multivitamin 1 tab per day, lisinopril/hydrochlorothiazide 10/12.5 mg once a day. SOCIAL HISTORY: The patient denies tobacco, alcohol, IV or illicit drug use. He is working, not receiving workmen's compensation, unaccompanied today. IMAGING: No new imaging available. PHYSICAL EXAMINATION: VITAL SIGNS: Blood pressure 120/82, pulse 76, respiratory rate 16 and unlabored. The patient is 98% on room air, height 6 feet 1 inch tall, weight 282.8 pounds, BMI calculated 37.3. GENERAL: Well-developed, well-nourished, well-hydrated exogenously obese 59-year-old male appearing stated age, pain is rated today at 6/10. HEENT: Normocephalic, atraumatic. Pupils equal, round, reactive to light. EXTREMITIES: Show no clubbing, no cyanosis. There does not appear to be any edema. MUSCULOSKELETAL: There are changes in texture of the hair growth on the right when compared to left. There does not appear to be any significant atrophy, though the patient cannot dorsiflex his right foot as he does on the left. [facility] [address] [place] [address] PAIN MANAGEMENT CONSULTATION Name: ARNAUD SALAMANCA Room #: REG [facility]#: [id number] Admission: 10/21/19 Attend Phys: Darrion Warner DO Discharge: Date of : 60 Report #: [id number] There is severe limitation of motion. There is allodynia and hyperalgesia throughout the foot along mainly the sural nerve root. ASSESSMENT: 1. Complex regional pain syndrome. 2. Peripheral neuropathy of the right foot. 3. Chronic low back pain due to facet arthropathy. 4. Obesity. 5. Chronic intractable pain. PLAN: 1. The patient has returned today in followup visit having had a second opinion of his right foot. He sought treatment and suggestions from Dr. Hobson who concurs with the diagnosis of complex regional pain syndrome. He was subsequently given a referral to see Dr. Micheal Waters for medication management, though the patient chose to follow up with our clinic, understanding that medication management is not the only route of treatment. He has returned today to discuss options for therapy. We discussed medication management could be quite beneficial. We could escalate the dose of gabapentin as he is only on 600 mg twice a day and could certainly increase a dose up to 3600 mg total per day. We also discussed rotation to nortriptyline, amitriptyline, Cymbalta or even possibly Lyrica. We also discussed spinal cord stimulator, which I do feel is going to be the most effective and long-term treatment option. After reviewing the risks and benefits of all the proposed treatment options, the patient wishes to adjust medications initially. 2. We will start the patient on Horizant 600 mg dose twice a day. This will take the place of his current immediate release gabapentin. We may escalate this to a higher dosing depending on efficacy. I have given the patient samples of Horizant 600 mg tablets today. He will contact our clinic by the end of the week to advise whether or not he is having side effects of the medication such as sleepiness, disorientation, confusion, mental slowing. 3. I did give the patient samples of Lyrica. The understanding is the patient will not take Lyrica until trialing the Horizant. If the Horizant is ineffective, then we will rotate over to Lyrica and escalate that dose for neuropathic pain control. Many times, Lyrica in individuals that have side effects to gabapentin have lessening side effects. We will adjust this medication on Sunday if necessary. The patient was provided prescription of Nucynta 50 mg dose 1 tab p.o. every day. This is to be relied on only when pain is intolerable, not to rely on the medication prophylactically. This was started by his orthopedic surgeon. We will continue the medication for the short term. 4. I had a very long discussion today with the patient about spinal cord stimulators. As you are aware, spinal cord stimulator indications are for complex regional pain syndrome. I do feel that would be an option for the patient. He will consider this option. He was given information again today to review at his earliest convenience. [address] [place] [address] PAIN MANAGEMENT CONSULTATION Name: JADYNARNAUD CEBALLOS Room #: REG [facility] Qasim.#: [id number] Admission: 10/21/19 Attend Phys: Darrion Warner DO Discharge: Date of : 60 Report #: [id number] 5. We will see the patient back in followup visit on an as needed basis. He has medication available and we have made adjustments in therapy today. He will contact our clinic by the end of the week to advice of the efficacy. <ELECTRONICALLY SIGNED> By: Darrion Warner DO 10/21/19 1344 [id number] Darrion Warner DO /nt
== END ==
LOC: PAIN 06:45
DX: G57.91 Unspecified mononeuropathy of right lower limb (principal); G90.50 Complex regional pain syndrome I, unspecified; G62.9 Polyneuropathy, unspecified; E66.9 Obesity, unspecified; M12.88 Other specific arthropathies, not elsewhere classified, other specified site

== ENCOUNTER → 2019-12-30 | Outpatient (CLI) | payer OTHER ==
[~2019-12-30] VITALS: Ht 185.4 cm; Wt 126.8 kg
[2019-12-30 07:58] VITALS: BP 155/93
--- NOTE | 2019-12-30 08:05 | NUR ---
Pain Clinic Assessment: 1. History of Osteoarthritis: LOW BACK History of Rheumatoid Arthritis: DENIES 2. Height: 6 ft. 1 in. 185.4 cm. Weight: 279.6 lb. oz. 126.826 kg. Patient's BMI: 36.9 3. Vital Signs: BP: 155/93 Pulse: 69 Resp: 20 Temp: 02 Sat: 97 ECG Mon: 4. Pain Intensity: 4 5. Fall Risk: Dizziness: N Needs help standing or walking: N Fallen in the last 3 months: N Fall risk comments: 6. Patient on Blood Thinner: None 7. History of Hypertension: Y 8. Opioid Therapy greater than 6 weeks: Y Opiate Contract Signed: 03/22/17 9. Risk Assessment Tool Provided: TATI 10. Functional Assessment Tool: 11. Recreational Drug Use: Never Drug Type: Tobacco Use: Former Smoker Tobacco Type: Amount or Packs/day: How Many Years: Alcohol Use: No Frequency: Quant:
--- NOTE | 2019-12-30 10:31 | HPC ---
[facility] [place] [address] PAIN MANAGEMENT CONSULTATION Name: ARNAUD SALAMANCA Room #: REG NATALIOHeriberto Cates#: [id number] Admission: 12/30/19 Attend Phys: Darrion Warner DO Discharge: Date of : 60 Report #: [id number] THIS REPORT FOR: cc: Juan Zuniga Gregg R. DO Johnson, James E. DO ~ DATE OF SERVICE: 12/30/2019 CHIEF COMPLAINT: Right foot pain. HISTORY OF PRESENT ILLNESS: As you know, the patient is a 59-year-old male who has been followed by [facility] for initially chronic low back pain, bilateral lower extremity pain with paresthesias. The patient underwent surgery to correct a deformity of the right foot and this has left him with complex regional pain syndrome. We have been trying conservative medical management with the patient, but unfortunately, his symptoms continued to be present. He underwent a second surgery in hopes of improving symptoms, which did provide minimal benefit. He returns today in followup visit to discuss further spinal cord stimulator and medication management to address his residual complex regional pain syndrome pain. ALLERGIES: PENICILLIN, AMOXICILLIN. CURRENT MEDICATIONS: Gabapentin 600 mg in the morning, 600 mg at night, Ambien 10 mg p.o. at bedtime, Tylenol Extra Strength 2 tabs t.i.d., testosterone twice a week, multivitamin once a day, lisinopril/hydrochlorothiazide 10/12.5 mg once a day, Nucynta 50 mg per day. SOCIAL HISTORY: The patient denies tobacco, alcohol or IV illicit drug use. He is working, not receiving workmen's compensation, unaccompanied today. IMAGING: No new imaging available. PHYSICAL EXAMINATION: VITAL SIGNS: Blood pressure 155/93, pulse 69, respiratory rate 20 and unlabored. The patient is 97% on room air. Height 6 feet 1 inch tall, weight 279.6 pounds, BMI calculated 36.9. GENERAL: Well-developed, well-nourished, well-hydrated exogenously obese 59-year-old male appearing stated age, pain is rated today at 4/10. HEENT: Normocephalic, atraumatic. Pupils equal, round, and reactive to light. NEUROLOGIC: Speech is fluent. The patient deemed a good historian. EXTREMITIES: Show no clubbing, no cyanosis, no specific edema. MUSCULOSKELETAL: The patient's right foot shows changes in skin color and texture when compared to the left. There is a definitive temperature change between the left and right foot to a 3 degree difference [place] [address] PAIN MANAGEMENT CONSULTATION Name: ARNAUD SALAMANCA Room #: REG [facility]#: [id number] Admission: 12/30/19 Attend Phys: Darrion Warner DO Discharge: Date of : 60 Report #: [id number] left. Hair growth appears normal. Nail growth does not appear significantly different when comparing the lower extremities. ASSESSMENT: 1. Complex regional pain syndrome type 1. 2. Peripheral neuropathy, right foot. 3. Chronic low back pain due to facet arthropathy. 4. Obesity. 5. Chronic intractable pain. PLAN: 1. The patient returns today in followup visit to discuss further spinal cord stimulator technology. The patient has sought evaluations from other physicians including another pain management physician who agreed a spinal cord stimulator would likely be the best option for the patient. He returns today to discuss continuation of the process and to begin the authorization to undergo the trial implantation, if this is then successful, move forward with permanent implant. The patient completed his psychiatric evaluation in 05/2019, which showed no concerning psychopathology. I believe we can utilize this as psychiatric evaluation to move forward with a trial implantation. We will begin the authorization process for this trial implantation as quickly as possible. Once we have the authorization and we have clearance from the hospital to utilize the PPE required to perform the procedure, we will then move forward with the implantation of the trial device. Due to COVID restrictions, we currently cannot offer this device, but in the next week we should have relaxation of those restrictions and can move forward with a trial implant. We will begin the process to get the implant approved so that once the restrictions have been lifted, we can move forward quickly. 2. Recommend making adjustments in the patient's medication at this time. He is currently taking gabapentin 600 mg b.i.d. We recommend going to 600 mg in morning and 1200 mg at night and continue for 4 nights, no improvement in symptoms and no side effects, then escalate the dose to 300 mg in morning and 1800 mg at night in hopes of providing better analgesic benefit in the evening when the patient is experiencing most of his symptoms. The patient was given a prescription of gabapentin 600 mg tablets to a 120 tablets, no refills. 3. The patient was provided a refill prescription of Nucynta 50 mg tablet 1 tab p.o. b.i.d. The patient will take this pain medication only when necessary, he is not to rely on the medication prophylactically. The patient does report good efficacy with its use and no specific side effects. We will continue the patient on the medication. He was given 1 prescription #60 tablets, no refills. 4. We will see the patient back in followup visit for medication management if [address] [address] PAIN MANAGEMENT CONSULTATION Name: ARNAUD SALAMANCA Room #: REG CLARI Cates#: [id number] Admission: 12/30/19 Attend Phys: Darrion Warner DO Discharge: Date of : 60 Report #: [id number] the medications are working beneficially for pain control. Otherwise, we will see him back for the spinal cord stimulator trial. <ELECTRONICALLY SIGNED> By: Darrion Warner DO 12/30/19 [id number] Darrion Warner DO /nt
== END ==
LOC: PAIN 06:47
DX: G57.91 Unspecified mononeuropathy of right lower limb (principal); G90.50 Complex regional pain syndrome I, unspecified; M54.5 Low back pain; E66.9 Obesity, unspecified; Z88.0 Allergy status to penicillin; Z88.8 Allergy status to other drugs, medicaments and biological substances; Z79.899 Other long term (current) drug therapy

== ENCOUNTER → 2020-01-28 | Outpatient (CLI) | payer OTHER ==
[~2020-01-28] VITALS: Ht 182.9 cm; Wt 127.1 kg
[2020-01-28 14:38] VITALS: BP 124/57
--- NOTE | 2020-01-28 14:52 | NUR ---
Pain Clinic Assessment: 1. History of Osteoarthritis: LOW BACK History of Rheumatoid Arthritis: DENIES 2. Height: 6 ft. 0 in. 182.9 cm. Weight: 280.2 lb. oz. 127.098 kg. Patient's BMI: 38.0 3. Vital Signs: BP: 124/57 Pulse: 86 Resp: 18 Temp: 02 Sat: 98 ECG Mon: 4. Pain Intensity: 7 5. Fall Risk: Dizziness: N Needs help standing or walking: N Fallen in the last 3 months: N Fall risk comments: 6. Patient on Blood Thinner: None 7. History of Hypertension: Y 8. Opioid Therapy greater than 6 weeks: Y Opiate Contract Signed: 03/22/17 9. Risk Assessment Tool Provided: TATI 10. Functional Assessment Tool: 11. Recreational Drug Use: Never Drug Type: Tobacco Use: Former Smoker Tobacco Type: Amount or Packs/day: How Many Years: Alcohol Use: No Frequency: Quant:
--- NOTE | 2020-02-03 09:19 | HPC ---
[facility] [place] [address] PAIN MANAGEMENT CONSULTATION Name: ARNAUD SALAMANCA Room #: REG NATALIOHeriberto Cates#: [id number] Admission: 01/28/20 Attend Phys: Darrion Warner DO Discharge: Date of : 60 Report #: [id number] THIS REPORT FOR: cc: Juan Zuniga Gregg R. DO Johnson, James E. DO ~ DATE OF SERVICE: 01/28/2020 REFERRING PHYSICIAN: Juan Zuniga DO CHIEF COMPLAINT: Complex regional pain syndrome type 1 of the right foot. HISTORY OF PRESENT ILLNESS: As you know, the patient is a 59-year-old male followed by [facility] initially for chronic low back pain due to facet arthropathy. He was experiencing at that time some radicular symptoms and this was treated successfully. The patient subsequently underwent a foot surgery on the right, which left him with complex regional pain syndrome type 1. We have been addressing his pain with conservative treatment options. He states that his surgeon who performed the surgery has released his care indicating that they have nothing more to offer the patient. He was returned to our clinic to treat his ongoing complex regional pain syndrome. We have trialled multiple conservative medication management adjustments, but have not yet been able to obtain excellent benefit. He returns indicating that the changes we made at last visit have improved the symptoms to some degree, but does wish to move forward with spinal cord stimulator to address his complex regional pain. He returns today to discuss this option further. ALLERGIES: PENICILLIN, AMOXICILLIN. CURRENT MEDICATIONS: Gabapentin 600 mg in the morning and 900 mg at night, Ambien 10 mg p.o. at bedtime, Tylenol Extra Strength 2 tabs t.i.d., testosterone twice a week, multivitamin once a day, lisinopril/hydrochlorothiazide 10/12.5 mg once a day, Nucynta 50 mg 3 times a day p.r.n. SOCIAL HISTORY: The patient denies tobacco, alcohol, IV or illicit drug use. He is working, not receiving workmen's compensation, unaccompanied today. IMAGING: No new imaging available. PHYSICAL EXAMINATION: VITAL SIGNS: Blood pressure 124/57, pulse 86, respiratory rate 18 and unlabored. The patient is 98% on room air, height 6 feet tall, weight 280 pounds, BMI calculated 38.0. GENERAL: Well-developed, well-nourished, well-hydrated 59-year-old male appearing his stated age. He is placing current pain score at around 7/10. [place] [address] PAIN MANAGEMENT CONSULTATION Name: ARNAUD SALAMANCA Room #: REG [facility].#: [id number] Admission: 01/28/20 Attend Phys: Darrion Warner DO Discharge: Date of : 60 Report #: [id number] HEENT: Normocephalic, atraumatic. Pupils equal, round and reactive. Speech fluent. EXTREMITIES: Show no clubbing, no cyanosis, no edema. MUSCULOSKELETAL: Right foot shows changes in skin color or texture once again today when compared to left. Temperature change of 3-1/2 degrees is noted from the dorsum and plantar surface of the right foot when compared to left. Nail growth appears unaffected at this time. Rubor and color changes noted on the right when compared to left. ASSESSMENT: 1. Complex regional pain syndrome type 1 of the right foot. 2. Peripheral neuropathy of the right foot. 3. Chronic low back pain due to facet arthropathy. 4. Obesity. 5. Chronic intractable pain. PLAN: 1. The patient returns today in followup visit to begin prior authorizations for a spinal cord stimulator for the patient to trial for his complex regional pain syndrome. He does wish to move forward with this option. He has recently seen a new orthopedic surgeon, Dr. Hobson, who referred this patient to another pain clinic. The patient is going to follow up with the other pain clinic to discuss their options for treatment, though he has received second opinions in the past and all have led to the same direction of treatment. He wishes to look into this as an alternative treatment course and I encouraged him to do so. 2. We will continue the process of authorization for a spinal cord stimulator as I do feel this is the most effective treatment option the patient has available to address his complex regional pain syndrome. Spinal cord stimulators have been developed and are indicated for complex regional pain syndrome of the lower extremities and I do feel this would be of benefit to the patient allowing him to reduce his medication use. We will continue the authorization process of this device. 3. The patient will increase his gabapentin. He is currently taking 600 mg morning and 900 mg at night. We recommend moving it to 600 mg in the morning and 1200 mg at night in hopes of obtaining better analgesic benefit. He can continue to escalate his daily dose as well as this has been beneficial for the patient today. He is experiencing possible side effects of some cognition issues, though these are very minimal. We recommend an increase in medication to determine first of all whether or not his symptoms can be improved with neuropathic medication, but also whether or not the side effects he is complaining is actually due to medications or another source. The patient is agreeable to make the adjustment. He will contact our clinic if he has any questions or concerns or notes worsening of his side effects. 4. We will see the patient back in followup visit once we have achieved [facility] [address] [place] [address] PAIN MANAGEMENT CONSULTATION Name: ARNAUD SALAMANCA Room #: REG CLARI Cates#: [id number] Admission: 01/28/20 Attend Phys: Darrion Warner DO Discharge: Date of : 60 Report #: [id number] authorization to undergo spinal cord stimulator trial implantation to address complex regional pain syndrome type 1 of the right foot. <ELECTRONICALLY SIGNED> By: Darrion Warner DO 02/03/2019 0837 09 Darrion Warner DO /nt
== END ==
LOC: PAIN 06:58
PROVIDERS: ATTEND Anesthesiology Pain Medicine
DX: G90.521 Complex regional pain syndrome I of right lower limb (principal); I73.9 Peripheral vascular disease, unspecified; M54.5 Low back pain; E66.9 Obesity, unspecified; G89.29 Other chronic pain; Z88.0 Allergy status to penicillin; Z79.899 Other long term (current) drug therapy; Z88.8 Allergy status to other drugs, medicaments and biological substances

== ENCOUNTER → 2020-03-16 | Outpatient (CLI) | payer OTHER ==
[~2020-03-16] VITALS: Ht 182.9 cm; Wt 128.1 kg
--- NOTE | ~2020-03-16 | HPC ---
[facility] [place] [address] PAIN MANAGEMENT CONSULTATION Name: ARNAUD SALAMANCA Room #: REG CLARI Cates#: [id number] Admission: 03/16/20 Attend Phys: Darrion Warner DO Discharge: Date of : 60 Report #: [id number] THIS REPORT FOR: cc: Vikki Zuniga Gregg R. DO Johnson, James E. DO ~ CC: VIKKI Warner DATE OF SERVICE: 03/16/2020 CHIEF COMPLAINT: Right foot pain secondary to complex regional pain syndrome. HISTORY OF PRESENT ILLNESS: As you know, the patient is a 59-year-old male who was originally seen in our clinic for chronic low back pain due to facet arthropathy. With weight loss and smoking cessation as well as changes in medication management his pain became well controlled. Unfortunately, he has begun to gain weight back and this has caused increase in axial back pain. His concern today is his ongoing right foot pain secondary to complex regional pain syndrome type 1. He returns today to receive refill of medications and to schedule his spinal cord stimulator trial, 03/30. He is prepared to undergo the procedure, understanding all the risks and benefits. He is placing his pain today at 6/10. He denies new injury, trauma or any changes in medical history since our last visit. ALLERGIES: PENICILLIN, AMOXICILLIN. CURRENT MEDICATIONS: Gabapentin 600 mg in the morning, 600 mg at noon and 900 mg at night, Ambien 10 mg p.o. at bedtime, Tylenol Extra Strength 2 tabs t.i.d., testosterone twice a week, multivitamin once a day, lisinopril/hydrochlorothiazide 10/12.5 mg once a day, Nucynta 50 mg 3 times a day p.r.n. SOCIAL HISTORY: The patient denies tobacco, alcohol, IV or illicit drug use. He is working, not receiving workmen's compensation, unaccompanied today. IMAGING: No new imaging available. PHYSICAL EXAMINATION: VITAL SIGNS: Blood pressure 120/66, pulse 76, respiratory rate 18 and unlabored. The patient is 97% on room air, height 6 feet tall, weight 282.4 pounds, BMI calculated 38.3. GENERAL: Well-developed, well-nourished, well-hydrated exogenously obese 59-year-old male appearing stated age, pain is rated today 6/10. HEENT: Normocephalic, atraumatic. Pupils are equal, round and reactive. [facility] [address] [place] [address] PAIN MANAGEMENT CONSULTATION Name: ARNAUD SALAMANCA Room #: REG [facility].#: [id number] Admission: 03/16/20 Attend Phys: Darrion Warner DO Discharge: Date of : 60 Report #: [id number] EXTREMITIES: Show no clubbing, no cyanosis. There are changes in skin color and texture noted over the right foot compared to left. There does not appear to be any specific edema. MUSCULOSKELETAL: Temperature changes noted again when comparing right plantar surface and the dorsum of the foot to the left foot. There is about a 2 degree difference between them. Nail growth appears unaffected. There are changes in skin color and texture on the right foot compared to left consistent with complex regional pain syndrome. ASSESSMENT: 1. Complex regional pain syndrome type 1 of the right foot. 2. Peripheral neuropathy. 3. Chronic low back pain. 4. Obesity. 5. Chronic intractable pain. PLAN: 1. The patient returns today in followup visit, wishing to begin scheduling the spinal cord stimulator trial. He states that even with medications his pain has now become more intense. He wishes to undergo the procedure to determine if the spinal cord stimulator will provide benefit. We have set the patient a tentative appointment for 03/30 to undergo the procedure. The patient will keep us apprised if this is going to work for his schedule. The patient will need time during the week following the to be able to participate in daily activities with limitations based on the spinal cord stimulator. He will not be able to bathe during that time, but can use sponge bath type techniques. The patient states he thinks he can clear the schedule to be able to undergo the procedure on the . The explantation date will be 1 week following. 2. The patient was provided a refill prescription of Nucynta 50 mg dose 1 tab p.o. b.i.d. I have given the patient #60 tablets to release today. There is no refills. The patient was advised to watch for side effects of sleepiness, disorientation, confusion, mental slowing with the use of the therapy. If he notes any side effects, discontinue immediately. Prescription was provided to the patient in written form. 3. The patient was provided a prescription of gabapentin 600 mg dose. We are going to increase his dosing to 1200 mg in the morning and 1200 mg at noon and 1200 mg at night. He was given #180 tablets of the 600 mg dose. He will watch for side effects of sleepiness, disorientation, confusion, mental slowing. If he notes any side effects, reduce to the dose prior and continue that therapy until our next visit. Prescription was provided to the patient in written form. 4. We will see the patient back in followup visit for scheduled spinal cord stimulator trial implantation with the Nevro device. We will discuss with the [address] [place] [address] PAIN MANAGEMENT CONSULTATION Name: ARNAUD SALAMANCA Room #: REG CLARI Cates#: [id number] Admission: 03/16/20 Attend Phys: Darrion Warner DO Discharge: Date of : 60 Report #: [id number] patient the week following the procedure and the restrictions required during the trial period at that visit. By: [id number] Darrion Warner DO /nt
[2020-03-16 12:39] VITALS: BP 128/66
--- NOTE | 2020-03-16 12:44 | NUR ---
Pain Clinic Assessment: 1. History of Osteoarthritis: LOW BACK History of Rheumatoid Arthritis: DENIES 2. Height: 6 ft. 0 in. 182.9 cm. Weight: 282.4 lb. oz. 128.096 kg. Patient's BMI: 38.3 3. Vital Signs: BP: 128/66 Pulse: 76 Resp: 18 Temp: 02 Sat: 97 ECG Mon: 4. Pain Intensity: 6 5. Fall Risk: Dizziness: N Needs help standing or walking: N Fallen in the last 3 months: N Fall risk comments: 6. Patient on Blood Thinner: None 7. History of Hypertension: Y 8. Opioid Therapy greater than 6 weeks: Y Opiate Contract Signed: 03/22/17 9. Risk Assessment Tool Provided: TATI 10. Functional Assessment Tool: 11. Recreational Drug Use: Never Drug Type: Tobacco Use: Former Smoker Tobacco Type: Amount or Packs/day: How Many Years: Alcohol Use: No Frequency: Quant:
== END ==
LOC: PAIN 06:53
PROVIDERS: ATTEND Anesthesiology Pain Medicine
DX: G90.521 Complex regional pain syndrome I of right lower limb (principal); G90.09 Other idiopathic peripheral autonomic neuropathy; M54.5 Low back pain; E66.9 Obesity, unspecified; Z88.8 Allergy status to other drugs, medicaments and biological substances; Z79.899 Other long term (current) drug therapy

== ENCOUNTER → 2020-03-30 | Outpatient (CLI) | payer OTHER ==
[~2020-03-30] VITALS: Ht 185.4 cm; Wt 125.6 kg
[2020-03-30 07:08] VITALS: BP 140/76
--- NOTE | 2020-03-30 07:13 | NUR ---
Pain Clinic Assessment: 1. History of Osteoarthritis: LOW BACK History of Rheumatoid Arthritis: DENIES 2. Height: 6 ft. 1 in. 185.4 cm. Weight: 277.0 lb. oz. 125.647 kg. Patient's BMI: 36.6 3. Vital Signs: BP: 140/76 Pulse: 72 Resp: 18 Temp: 02 Sat: 98 ECG Mon: 4. Pain Intensity: 6 5. Fall Risk: Dizziness: N Needs help standing or walking: N Fallen in the last 3 months: N Fall risk comments: 6. Patient on Blood Thinner: None 7. History of Hypertension: Y 8. Opioid Therapy greater than 6 weeks: Y Opiate Contract Signed: 03/22/17 9. Risk Assessment Tool Provided: TATI 10. Functional Assessment Tool: 11. Recreational Drug Use: Never Drug Type: Tobacco Use: Former Smoker Tobacco Type: Amount or Packs/day: How Many Years: Alcohol Use: No Frequency: Quant:
--- NOTE | 2020-03-31 12:57 | HPC ---
[facility] [place] [address] PAIN MANAGEMENT CONSULTATION Name: ARNAUD SALAMANCA Room #: REG CLARI Loan#: [id number] Admission: 03/30/20 Attend Phys: Darrion Warner DO Discharge: Date of : 60 Report #: [id number] THIS REPORT FOR: cc: Juan Zuniga Gregg R. DO Johnson, James E. DO ~ DATE OF SERVICE: 03/30/2020 REFERRING PHYSICIAN: Juan Zuniga DO CHIEF COMPLAINT: Right foot pain secondary to complex regional pain syndrome. HISTORY OF PRESENT ILLNESS: As you know, the patient is a pleasant 59-year-old male who suffers from complex regional pain syndrome of the right foot, status post surgery. He continues to experience pain at a level of up to 6/10. He returns today in followup visit for spinal cord tumor trial implantation to address his CRPS of the right foot. He currently remains on medication management, but is having some side effects with the therapy such as sleepiness, disorientation, confusion and mental slowing. He has received all preauthorizations and approvals to undergo spinal cord stimulator trial implantation today to address his complex regional pain syndrome. The patient reports pain today at a level of 6/10. ALLERGIES: PENICILLIN, AMOXICILLIN. CURRENT MEDICATIONS: Gabapentin 600 mg in the morning, 600 mg at noon, 900 mg at night. Ambien 10 mg p.o. at bedtime, Tylenol Extra Strength 2 tabs t.i.d., testosterone twice a week, multivitamin once a day, lisinopril/hydrochlorothiazide 10/12.5 mg once a day, Nucynta 50 mg 3 times a day. SOCIAL HISTORY: The patient denies tobacco, alcohol, IV or illicit drug use. He is working, not receiving workmen's compensation, unaccompanied today. IMAGING: No new imaging available. PHYSICAL EXAMINATION: VITAL SIGNS: Blood pressure 140/76, pulse 72 and respiratory rate 18 and unlabored. The patient is 98% on room air. Height 6 feet 1 inch tall, weight 277 pounds, BMI calculated 36.6. GENERAL: A well-developed, well-nourished, well-hydrated exogenously obese 59-year-old male appearing stated age, pain is rated today at 6/10. HEENT: Normocephalic, atraumatic. Pupils equal, round and reactive. NEUROLOGIC: Speech is fluent. The patient is wearing a mask in compliance with COVID-19 [place] [address] PAIN MANAGEMENT CONSULTATION Name: RANAUD SALAMANCA Room #: REG [facility]#: [id number] Admission: 03/30/20 Attend Phys: Darrion Warner DO Discharge: Date of : 60 Report #: [id number] EXTREMITIES: Show no clubbing, no cyanosis. MUSCULOSKELETAL: There are skin color changes and temperature changes noted over the right foot when compared to left. There is a 2-degree temperature change on the dorsum of the foot on the right when compared to left. ASSESSMENT: 1. Complex regional pain syndrome of the right foot. 2. Peripheral neuropathy. 3. Chronic low back pain. 4. Obesity. 5. Chronic intractable pain. PLAN: 1. The patient returns today in followup visit having received authorization for him to undergo spinal cord stimulator trial implantation for complex regional pain syndrome of the right foot. The patient has been advised of the risks and the benefits of this procedure. These risks include but are not necessarily limited to bleeding, bruising, infection, worsening pain, no relief of pain, also risk of temporary or permanent muscle weakness, temporary or permanent nerve damage, possible paralysis and . The patient states understood and wished to proceed. 2. The patient was advised to reduce his gabapentin at night, so that he takes 1 tab in the morning, 1 tab at noon, 1 tab at night. This should help reduce the patient's daytime somnolence and dysphoric effects. We are hopeful that with the spinal cord stimulator, he will notice excellent benefit and be able to wean off the gabapentin entirely as it is causing side effects of cognition in the patient. He will reduce his gabapentin while on the spinal cord stimulator trial. 3. We will see the patient back in followup visit in 1 week. At that time, review the efficacy of the spinal cord stimulator and determine if he should continue this path of treatment or look towards other options for therapy. PROCEDURE NOTE DESCRIPTION OF PROCEDURE: A 2-lead spinal cord stimulator trial implantation under fluoroscopic guidance. After obtaining written consent, a 22-gauge IV Hep-Lock was placed in the patient's upper extremity. The patient was given IV prophylactic antibiotic infused over 30 minutes prior to procedure. The patient was then taken to the fluoroscopy suite, placed in prone position with 2 pillows under abdomen to decrease lumbar lordosis. Cardiopulmonary monitoring was established and the patient's vital signs were monitored throughout the procedure. The patient's thoracolumbar spine was prepped and draped in aseptic fashion. No IV sedation was provided. [address] [address] PAIN MANAGEMENT CONSULTATION Name: ARNAUD SALAMANCA Room #: REG CLARI Tripp#: [id number] Admission: 03/30/20 Attend Phys: Darrion RaphaelTodd Warner DO Discharge: Date of : 60 Report #: [id number] An AP fluoroscopic view was obtained to identify and lea the midline positions of the T10 through L2 spinous processes. Skin was anesthetized with a preservative-free 1% lidocaine on each side. There was a total of 7 mL provided on the right and 8 mL provided on the left prior to the introduction of the 14-gauge 4-inch Tuohy needles. The skin entry site on the right side was approximately at the level of the L1 vertebral body. Needle was advanced using a paramedian approach to the right of midline, approximately 45-degree angle. Loss of resistance to air was utilized to verify placement within the epidural space. The epidural space was entered at the T12-L1 interspace. A lateral fluoroscopic view was obtained to confirm position of the tip of the Tuohy needle within the epidural space. Aspiration noted to be negative for heme or cerebrospinal fluid. The patient did not complain of pain or paresthesias during needle placement. The spinal cord stimulating lead was then advanced through the Tuohy needle under direct visualization within the midline. Tip of the stimulating lead was aligned with the inferior endplate of T7 located with just to the right of midline. Our attention was then directed towards the left side. The skin entry site was approximately at level of the L1 vertebral body. Needle was advanced using a paramedian approach to the left of midline, approximately 45-degree angle. Loss of resistance to air was utilized to verify placement within the epidural space. Epidural space is entered at the T12-L1 interspace. A lateral fluoroscopic view was then once again obtained to confirm the position of the 2nd Tuohy needle within the epidural space. Aspiration was negative for both heme or cerebrospinal fluid. The patient did not complain of pain or paresthesias during needle placement. The spinal cord stimulating lead was advanced through the Tuohy needle under direct visualization to the left of midline. The tip of the stimulating lead was aligned with the inferior endplate of T8 located within the midline. At this point, we confirmed position of the spinal cord stimulator leads within the posterior epidural space utilizing a lateral imaging. The fluoroscope was then rotated into AP position and AP imaging was obtained. The stylets were removed from each of the leads under fluoroscopic guidance followed by the Tuohy needles. We confirmed and rechecked the position of the leads with AP imaging. The leads were then anchored to the patient's back with Mastisol, Steri-Strips, and OpSite bandaging. The patient tolerated procedure well, carefully escorted to recovery room in stable condition. No apparent complications. The patient was advised if he begins to experience an increased back pain, drainage from the site, fever, chills or night sweats, he is to contact the on-call pain physician. If he is experiencing pain in his typical distribution in the right foot, he is to contact the device patient services representative. The patient was given the phone numbers for [address] [address] PAIN MANAGEMENT CONSULTATION Name: ARNAUD SALAMANCA [id number] Admission: 03/30/20 Attend Phys: Darrion Warner DO Discharge: Date of : 60 Report #: [id number] both these individuals today. We will see him back in 1 week for explantation of device and discuss efficacy. <ELECTRONICALLY SIGNED> By: Darrion Warner DO 03/31/20 1257 1040 1316 Darrion Warner DO /nt
== END | disposition home or self-care (01) ==
LOC: PAIN 03-18 13:08
PROVIDERS: ATTEND Anesthesiology Pain Medicine
DX: G90.521 Complex regional pain syndrome I of right lower limb (principal); G62.9 Polyneuropathy, unspecified; M54.5 Low back pain; E66.09 Other obesity due to excess calories; Z98.890 Other specified postprocedural states; Z79.899 Other long term (current) drug therapy; Z87.891 Personal history of nicotine dependence; Z88.0 Allergy status to penicillin; Z68.36 Body mass index [BMI] 36.0-36.9, adult

== ENCOUNTER → 2020-04-06 | Outpatient (CLI) | payer OTHER ==
[~2020-04-06] VITALS: Ht 182.9 cm; Wt 126.6 kg
[2020-04-06 09:00] VITALS: BP 107/80
--- NOTE | 2020-04-06 09:09 | NUR ---
Pain Clinic Assessment: 1. History of Osteoarthritis: LOW BACK History of Rheumatoid Arthritis: DENIES 2. Height: 6 ft. 0 in. 182.9 cm. Weight: 279.0 lb. oz. 126.554 kg. Patient's BMI: 37.8 3. Vital Signs: BP: 107/80 Pulse: 71 Resp: 16 Temp: 02 Sat: 97 ECG Mon: 4. Pain Intensity: 2 5. Fall Risk: Dizziness: N Needs help standing or walking: N Fallen in the last 3 months: N Fall risk comments: 6. Patient on Blood Thinner: None 7. History of Hypertension: Y 8. Opioid Therapy greater than 6 weeks: Y Opiate Contract Signed: 03/22/17 9. Risk Assessment Tool Provided: TATI 10. Functional Assessment Tool: 11. Recreational Drug Use: Never Drug Type: Tobacco Use: Former Smoker Tobacco Type: Amount or Packs/day: How Many Years: Alcohol Use: No Frequency: Quant:
--- NOTE | 2020-04-06 14:22 | HPC ---
[facility] [place] [address] PAIN MANAGEMENT CONSULTATION Name: JADYNARNAUD CEBALLOS Room #: REG CLARI Cates#: [id number] Admission: 04/06/20 Attend Phys: Darrion Warner DO Discharge: Date of : 60 Report #: [id number] THIS REPORT FOR: cc: Juan Zuniga Gregg R. DO Johnson, James E. DO ~ DATE OF SERVICE: 04/06/2020 CHIEF COMPLAINT: Right foot pain. HISTORY OF PRESENT ILLNESS: As you know, the patient is a very pleasant 60-year-old male returning in followup visit for explantation of spinal cord stimulator trial device. He reports of 60-70% improvement in his CRPS pain from the right foot. He is very pleased with response to the device wishing to move forward with permanent implant. The patient states that he was able to return to the majority of his activities of daily living without significant pain interference. He was able to reduce his reliance on his oral opioid medications. He is also noting improvement in overall sleep, both in the quality of sleep and the length of time he was asleep. He is extremely pleased with response to treatment and wishes to move forward with permanent implant of a spinal cord stimulator. He returns today to begin the process of scheduling this permanent implant and to explant the temporary device. ALLERGIES: PENICILLIN, AMOXICILLIN. CURRENT MEDICATIONS: Gabapentin, Ambien, Tylenol Extra Strength, testosterone, multivitamins, lisinopril, hydrochlorothiazide, Nucynta. SOCIAL HISTORY: The patient denies tobacco, alcohol, IV or illicit drug use. He is working, not receiving workmen's compensation, unaccompanied today. IMAGING: No new imaging available. PHYSICAL EXAMINATION: GENERAL: Well-developed, well-nourished, well-hydrated exogenously obese 60-year-old male. He appears his stated age. He is placing pain today at around 2/10. HEENT: Normocephalic, atraumatic. Pupils equal, round and reactive. EXTREMITIES: Show no clubbing, no cyanosis, no edema. MUSCULOSKELETAL: The patient continues to show skin color changes and temperature changes of the right foot when compared to left consistent with complex regional pain syndrome. Hair growth, nail growth appeared symmetrical when comparing lower extremities. ASSESSMENT: [address] [address] PAIN MANAGEMENT CONSULTATION Name: ARNAUD SALAMANCA Room #: REG [facility].#: [id number] Admission: 04/06/20 Attend Phys: Darrion Warner DO Discharge: Date of : 60 Report #: [id number] 1. Complex regional pain syndrome of the right foot. 2. Peripheral neuropathy. 3. Chronic low back pain. 4. Obesity. 5. Chronic intractable pain. PLAN: 1. The patient returns today in followup visit having noted 60-70% in overall pain with the spinal cord stimulator trial. He states he was able to sleep longer periods of time and was able to see improved quality of sleep. He has also been able to reduce his reliance on his medications over the past week consistent with improvement in overall pain. He does wish to move forward with permanent implant. We will begin the process of scheduling this permanent implant with Dr. Donnie Dean at [facility]. The patient will be referred to undergo the procedure with Dr. Dean returning after the surgery for further evaluation. The patient is agreeable for the referral to Dr. Dean for implant of the spinal cord stimulator. 2. The patient was provided a refill prescription on his gabapentin 600 mg dose. He is to take 1 tab p.o. t.i.d. I have given the patient #90 tablets with no refills. The patient was advised to continue this for the foreseeable future. Once the permanent implant is in place, working well, we will begin weaning this medication. Prescription sent via e-scribe to local pharmacy. 3. The patient was provided refill prescription of his Nucynta 50 mg dose 1 tab p.o. b.i.d. I have given the patient #60 tablets to release today. Prescription sent via e-scribe to local pharmacy. 4. We will see the patient back in followup visit in 1 month for medication management. Otherwise, we will see him back in followup visit post-procedurally to evaluate the incisions from the permanent spinal cord stimulator implantation. 5. We will send all the information to Dr. Dean's office today to be evaluated and to begin scheduling for a permanent implant of the Nevro device. <ELECTRONICALLY SIGNED> By: Darrion Warner DO 04/06/20 1422 1240 1326 Darrion Warner DO /nt
== END ==
LOC: PAIN 06:41
PROVIDERS: ATTEND Anesthesiology Pain Medicine
DX: M77.32 Calcaneal spur, left foot (principal); G90.09 Other idiopathic peripheral autonomic neuropathy; G89.4 Chronic pain syndrome; M54.5 Low back pain; E66.9 Obesity, unspecified; M25.075 Hemarthrosis, left foot; Z88.8 Allergy status to other drugs, medicaments and biological substances; Z79.899 Other long term (current) drug therapy

== ENCOUNTER → 2020-05-18 | Outpatient (CLI) | payer OTHER ==
[~2020-05-18] VITALS: Ht 182.9 cm; Wt 129.2 kg
--- NOTE | ~2020-05-18 | HPC ---
[facility] [place] [address] PAIN MANAGEMENT CONSULTATION Name: ARNAUD SALAMANCA Room #: REG CLARI MJaye.#: [id number] Admission: 05/18/20 Attend Phys: Darrion Warner DO Discharge: Date of : 60 Report #: [id number] CC: Juan Craven DATE OF SERVICE: 05/18/2020 REFERRING PHYSICIAN: Juan Zuniga DO CHIEF COMPLAINT: Right foot pain secondary to complex regional pain syndrome. HISTORY OF PRESENT ILLNESS: As you know, the patient is a very pleasant 60-year-old male in followup visit for medication management. He plans to undergo permanent spinal cord stimulator implantation tomorrow with Dr. Donnie Dean at his [facility] office. He returns today in followup visit as he has run out of his Nucynta medication. He is requesting a final refill of medication before we begin the weaning process to come off the therapy as he will no longer need this medication on a consistent basis with the device based on the trial we had recently. He returns today requesting refill on medications, denying any side effects of medication at present including sleepiness, disorientation, confusion, mental slowing. He is placing pain today at 8/10. He is very excited about undergoing the spinal cord stimulator implant and cannot wait until tomorrow morning. He returns today for medication management. ALLERGIES: PENICILLIN, AMOXICILLIN. CURRENT MEDICATIONS: Gabapentin, Ambien, Tylenol Extra Strength, testosterone, multivitamins, lisinopril, hydrochlorothiazide, Nucynta. SOCIAL HISTORY: The patient denies tobacco, alcohol, IV or illicit drug use. He is working, not receiving workmen's compensation, unaccompanied today. IMAGING: No new imaging available. PHYSICAL EXAMINATION: VITAL SIGNS: Blood pressure 124/84, pulse 83, respiratory rate 18 and unlabored. The patient is 100% on room air, height 6 feet tall, weight 284.8 pounds, BMI calculated 38.6. GENERAL: Well-developed, well-nourished, well-hydrated exogenously obese 60-year-old male appearing stated age. He is placing pain today at around 8/10. HEENT: Normocephalic, atraumatic. Pupils equal, round and reactive. Speech fluent for patient. EXTREMITIES: Upper extremities show no clubbing, no cyanosis, no edema. MUSCULOSKELETAL: Lower extremities shows skin color changes and temperature changes on the right foot compared to left consistent with complex regional pain syndrome. Hair growth and nail growth do not appear asymmetrical when comparing left lower extremity to right. ASSESSMENT: 1. Complex regional pain syndrome of the right foot. 2. Peripheral neuropathy. 3. Chronic low back pain. 4. Obesity. 5. Chronic intractable pain. PLAN: 1. The patient returns today in followup visit. Excited to undergo permanent implant of a spinal cord stimulator tomorrow with Dr. Dean. He has returned requesting refill on medications in the form of Nucynta to continue his analgesic regimen until which time the spinal cord stimulator can be adjusted and optimized. The patient and I did discuss that we will begin weaning opioid medications once he has completed his permanent implant. We have agreed to provide a 1-month prescription of Nucynta. He does not need refills of his gabapentin at this time as he has received a recent 3-month prescription. We will make a prescription available of Nucynta today with the understanding that we will begin the weaning processes once he returns The patient is agreeable. We reviewed the fact that opiate medications are being used to provide analgesia adequate to support activities of daily living, not attempting to achieve a specific pain score on the 0-10 Visual Analog Scale. The current opiate medications are providing sufficient analgesia to allow the patient to participate in activities of daily living. The patient is not exhibiting any aberrant behavior suggestive of drug diversion. The patient is not having any adverse reactions to medications. The patient is not suffering from daytime somnolence or mental acuity changes. The patient is managing opiate-induced constipation with appropriate [id number] agents and dietary considerations. The patient was counseled on concern for caution with operating a motor vehicle while using opiate medications. A physical exam was performed and the patient's functional status was evaluated. All patients with back pain were advised against the bed rest greater than 4 days and were advised to return to normal activities. Pain score assessment was noted and the treatment plan was reviewed with the patient. All current medications, both prescribed and OTC were reviewed and reconciled on the electronic medical record. Tobacco screening was accomplished and smoking cessation was advised when indicated. BMI was noted and diet/exercise modification was recommended for all patients following outside normal parameters. I reviewed with the patient today their responsibilities to safeguard prescription medications, reviewed their responsibility to utilize medications only as prescribed by the physician. They are to seek and receive pain medications only from 1 physician group ( [facility]). They are to use 1 pharmacy and keep the clinic informed if they change pharmacies. Their responsibilities include making followup visits in a timely fashion and to avoid abrupt discontinuation of medication usage. Their responsibilities further include bringing their medications (bottles from the pharmacy with residual pills) to the visit for possible confirmation of pill counts and the patient understands it is their responsibility to submit to random drug screens to ensure both that the medications prescribed are present, and that no other controlled substances are present. All prescriptions provided today were generated electronically. 2. The patient was provided prescription of Nucynta 50 mg dose 1 tab p.o. b.i.d. Given the patient #60 tablets to release today, no refills. The patient will fill this medication and take as needed for pain control. We are planning to wean the patient off these medications quickly as possible once the spinal cord stimulator has been optimized for pain capture. 3. We will see the patient back in followup visit next week for an incision evaluation. We then will see him back in 2 weeks for the second in the series of incision evaluations. We will discuss medication management at that visit as well. By: [id number] Darrion Warner DO /nt
[2020-05-18 14:07] VITALS: BP 124/84
--- NOTE | 2020-05-18 14:22 | NUR ---
Pain Clinic Assessment: 1. History of Osteoarthritis: LOW BACK History of Rheumatoid Arthritis: DENIES 2. Height: 6 ft. 0 in. 182.9 cm. Weight: 284.8 lb. oz. 129.185 kg. Patient's BMI: 38.6 3. Vital Signs: BP: 124/84 Pulse: 83 Resp: 18 Temp: 02 Sat: 100 ECG Mon: 4. Pain Intensity: 8 5. Fall Risk: Dizziness: Needs help standing or walking: N Fallen in the last 3 months: N Fall risk comments: 6. Patient on Blood Thinner: None 7. History of Hypertension: Y 8. Opioid Therapy greater than 6 weeks: Y Opiate Contract Signed: 03/22/17 9. Risk Assessment Tool Provided: TATI 10. Functional Assessment Tool: 11. Recreational Drug Use: Never Drug Type: Tobacco Use: Former Smoker Tobacco Type: Amount or Packs/day: How Many Years: Alcohol Use: No Frequency: Quant:
== END ==
LOC: PAIN 06:55
PROVIDERS: ATTEND Anesthesiology Pain Medicine
DX: G62.9 Polyneuropathy, unspecified (principal); M54.5 Low back pain; G89.29 Other chronic pain; E66.9 Obesity, unspecified; Z88.8 Allergy status to other drugs, medicaments and biological substances; Z79.899 Other long term (current) drug therapy

== ENCOUNTER → 2020-05-26 | Outpatient (CLI) | payer OTHER ==
[~2020-05-26] VITALS: Ht 182.9 cm; Wt 128.8 kg
[2020-05-26 13:49] VITALS: BP 117/67
--- NOTE | 2020-05-26 14:02 | NUR ---
Pain Clinic Assessment: 1. History of Osteoarthritis: LOW BACK History of Rheumatoid Arthritis: DENIES 2. Height: 6 ft. 0 in. 182.9 cm. Weight: 284.0 lb. oz. 128.822 kg. Patient's BMI: 38.5 3. Vital Signs: BP: 117/67 Pulse: 78 Resp: 14 Temp: 02 Sat: 98 ECG Mon: 4. Pain Intensity: 8 5. Fall Risk: Dizziness: N Needs help standing or walking: N Fallen in the last 3 months: N Fall risk comments: 6. Patient on Blood Thinner: None 7. History of Hypertension: Y 8. Opioid Therapy greater than 6 weeks: Y Opiate Contract Signed: 03/22/17 9. Risk Assessment Tool Provided: TATI 10. Functional Assessment Tool: 11. Recreational Drug Use: Never Drug Type: Tobacco Use: Former Smoker Tobacco Type: Amount or Packs/day: How Many Years: Alcohol Use: No Frequency: Quant:
--- NOTE | 2020-06-02 11:11 | HPC ---
[address] [address] PAIN MANAGEMENT CONSULTATION Name: ARNAUD SALAMANCA Room #: REG [facility] M..#: [id number] Admission: 05/26/20 Attend Phys: Darrion Warner DO Discharge: Date of : 60 Report #: [id number] CC: Donnie Craven DATE OF SERVICE: 05/26/2020 REFERRING PHYSICIAN: Donnie Dean MD PRIMARY CARE PHYSICIAN: Juan Zuniga DO CHIEF COMPLAINT: Right foot pain secondary to complex regional pain syndrome. Post-surgical pain secondary to spinal cord stimulator permanent implant. HISTORY OF PRESENT ILLNESS: As you know, the patient is a very pleasant 60-year-old male, following up today for wound evaluation after a permanent spinal cord stimulator implanted by Dr. Donnie Dean last week. The patient states overall he is doing very well. He is placing pain today at around 8/10 and this is involving the incisions themselves. He returns per the request of Dr. Dean for evaluation of the wounds and to discuss medication changes if necessary. The patient indicates no changes in his medical history since our last visit. He returns today in followup visit. ALLERGIES: PENICILLIN, AMOXICILLIN. CURRENT MEDICATIONS: Gabapentin, Ambien, Tylenol Extra Strength, testosterone, multivitamins, lisinopril, hydrochlorothiazide, Nucynta. SOCIAL HISTORY: The patient denies tobacco, alcohol, IV or illicit drug use. He is working, not receiving workmen's compensation, unaccompanied today. IMAGING: No new imaging available. PHYSICAL EXAMINATION: VITAL SIGNS: Blood pressure 117/67, pulse is 78, respiratory rate 14 and unlabored. The patient is 98% on room air, height 6 feet tall, weight 284 pounds, BMI calculated 38.5. GENERAL: Well-developed, well-nourished, well-hydrated exogenously obese 60-year-old male appearing stated age, pain is rated today 8/10. HEENT: Normocephalic, atraumatic. Pupils equal, round and reactive. Speech is fluent. EXTREMITIES: Show no clubbing, no cyanosis. MUSCULOSKELETAL: There are changes to skin color and texture on the right foot when compared to left. There is no notable temperature change today. There are 2 well-healing surgical incisions, one mid lower thoracic upper lumbar and one over the right buttock area consistent with the permanent implant of a spinal cord stimulator. ASSESSMENT: 1. Complex regional pain syndrome of the right foot. 2. Peripheral neuropathy. 3. Postsurgical changes. 4. Chronic low back pain. 5. Obesity. PLAN: 1. The patient returns today in followup visit for a wound check. He had a permanent spinal cord stimulator implanted last week with Dr. Dean. It appears to be doing very well from that standpoint. He returns today for the evaluation of the wounds. We removed the Steri-Strips and OpSite bandaging. The wounds appear to be healing well. There is no erythema or drainage. There is a beginning of granulation tissue showing good wound healing. There is just some mild tenderness to palpation in the mayo-surgical area, but otherwise normal findings. 2. No medication changes made at today's visit. The patient will continue current medical therapy as prior prescribed. 3. We will plan to see the patient back in followup visit for his second wound check in 1 week. At that time if wounds appear to be healing well, we will remove the dressing and have him begin to return to normal activities with the restrictions provided by Dr. Dean in regards to lifting and bending. We will see him back in 1 week. <ELECTRONICALLY SIGNED> By: Darrion Warner, 06/02/20 [id number] Darrion Warner DO /nt
== END ==
LOC: PAIN 13:27
PROVIDERS: ATTEND Anesthesiology Pain Medicine
DX: G89.4 Chronic pain syndrome (principal); M79.672 Pain in left foot; G89.28 Other chronic postprocedural pain; G62.9 Polyneuropathy, unspecified; M54.5 Low back pain; E66.9 Obesity, unspecified; Z88.8 Allergy status to other drugs, medicaments and biological substances; Z79.899 Other long term (current) drug therapy

== ENCOUNTER → 2020-06-02 | Outpatient (CLI) | payer OTHER ==
[~2020-06-02] VITALS: Ht 182.9 cm; Wt 128.4 kg
--- NOTE | ~2020-06-02 | HPC ---
[facility] [place] [place] [address] PAIN MANAGEMENT CONSULTATION Name: ARNAUD SALAMANCA Room #: REG [facility] Qasim.#: [id number] Admission: 06/02/20 Attend Phys: Darrion Warner DO Discharge: Date of : 60 Report #: [id number] CC: Juan Craven DATE OF SERVICE: 06/02/2020 CHIEF COMPLAINT: Right foot pain secondary to complex regional pain syndrome. HISTORY OF PRESENT ILLNESS: As you know, the patient is a very pleasant 60-year-old male who has returned today in followup visit for his second incision check in regards to the permanent implantation of a spinal cord stimulator by Dr. Dean. The patient is denying any concerns about the incision, states that his pain has improved significantly. He is pleased with response to the healing process. He is also here to begin reprogramming of his spinal cord stimulator to obtain better efficacy for coverage of his right foot due to CRPS. He is also requesting refill of medications for which he is running low of his Nucynta he takes for pain control. The patient is indicating a pain level of 5-6/10 today, mainly exacerbated with standing and walking. ALLERGIES: PENICILLIN, AMOXICILLIN. CURRENT MEDICATIONS: Gabapentin, Ambien, Tylenol Extra Strength, testosterone, multivitamins, lisinopril, hydrochlorothiazide, Nucynta. SOCIAL HISTORY: The patient denies tobacco, alcohol, IV or illicit drug use. He is working, not receiving workmen's compensation, unaccompanied today. IMAGING: No new imaging available. PHYSICAL EXAMINATION: VITAL SIGNS: Blood pressure 134/65, pulse 82, respiratory rate 16 and unlabored. The patient is 98% on room air, height 6 feet tall, weight 283 pounds and BMI calculated 38.4. GENERAL: Well-developed, well-nourished, well-hydrated 60-year-old male appearing stated age, pain is rated around 5-6/10. HEENT: Normocephalic, atraumatic. Speech is fluent. Extraocular muscles are intact. EXTREMITIES: Show no clubbing, though there is a skin color changes on the right foot when compared to left consistent with complex regional pain syndrome. There are no notable temperature changes again today. There is no appreciable edema. MUSCULOSKELETAL: Incisions appear clean. There is no erythema, no drainage. There is bandaging over the incisions, which appear new. These were removed. There was good healing and granulating tissue appropriate for healing process. PLAN: 1. The patient has returned today in followup visit for evaluation of his wounds. This is week two. He is healing well. There are no concerning findings on the examination today. We recommend the patient continue to use light padding over the incisions as he works and participates in daily activity. Healing does appear to be going along appropriately. I did advise the patient if he notes any changes in the healing process, any increase of redness in the area and more pain in the area or drainage, he is to contact our clinic immediately, but otherwise I believe he is doing well. 2. I have provided the patient with a refill prescription of his Nucynta. This will release in 2 weeks. This will allow the patient to continue the medication and adjust his spinal cord stimulator appropriately. If he then reaches good efficacy, we will wean the patient off of Nucynta. He was given 60 tablets of the 50 mg dose to take b.i.d. Prescription was sent via e-scribed to local pharmacy. 3. The patient will continue on gabapentin at present, we will begin weaning that medication once we get the patient into a position where his spinal cord stimulator is providing analgesic benefit over the right foot. There have been adjustments done to the device today. We are hopeful this will improve his symptoms even further. We will adjust this medication once we have optimization of spinal cord stimulator coverage. By: [id number] Darrion Warner DO /nt
[2020-06-02 13:07] VITALS: BP 134/65
--- NOTE | 2020-06-02 13:25 | NUR ---
Pain Clinic Assessment: 1. History of Osteoarthritis: LOW BACK History of Rheumatoid Arthritis: DENIES 2. Height: 6 ft. 0 in. 182.9 cm. Weight: 283.0 lb. oz. 128.368 kg. Patient's BMI: 38.4 3. Vital Signs: BP: 134/65 Pulse: 82 Resp: 16 Temp: 02 Sat: 98 ECG Mon: 4. Pain Intensity: 5-6 5. Fall Risk: Dizziness: N Needs help standing or walking: N Fallen in the last 3 months: N Fall risk comments: 6. Patient on Blood Thinner: None 7. History of Hypertension: Y 8. Opioid Therapy greater than 6 weeks: Y Opiate Contract Signed: 03/22/17 9. Risk Assessment Tool Provided: TATI 10. Functional Assessment Tool: 11. Recreational Drug Use: Never Drug Type: Tobacco Use: Former Smoker Tobacco Type: Amount or Packs/day: How Many Years: Alcohol Use: No Frequency: Quant:
== END ==
LOC: PAIN 06:58
PROVIDERS: ATTEND Anesthesiology Pain Medicine
DX: M79.671 Pain in right foot (principal); G89.4 Chronic pain syndrome; Z88.8 Allergy status to other drugs, medicaments and biological substances; Z79.899 Other long term (current) drug therapy

== ENCOUNTER → 2020-07-14 | Outpatient (CLI) | payer OTHER ==
[~2020-07-14] VITALS: Ht 182.9 cm; Wt 130.4 kg
--- NOTE | ~2020-07-14 | HPC ---
[facility] [address] [place] [address] PAIN MANAGEMENT CONSULTATION Name: ARNAUD SALAMANCA Room #: REG [facility] Cates#: [id number] Admission: 07/14/20 Attend Phys: Darrion Warner DO Discharge: Date of : 60 Report #: [id number] THIS REPORT FOR: cc: Juan Zuniga Gregg R. DO Johnson, James E. DO ~ CC: Juan Craven DATE OF SERVICE: 07/14/2020 CHIEF COMPLAINT: Right foot pain secondary to complex regional pain syndrome. HISTORY OF PRESENT ILLNESS: As you know, the patient is a very pleasant 60-year-old male returning in followup visit reporting about a 50% improvement in overall pain with the spinal cord stimulator and medication management. They have continued to make adjustments in his spinal cord stimulator and are holding in on a very effective pattern of treatment. He is reporting about a 50% improvement. He is able to go about the majority of activities of daily living in the morning all the way through until late afternoon with current treatment. Unfortunately, his symptoms tend to intensify with increased activity towards the late afternoon and evening hours. We are in the process of making further adjustments in the spinal cord stimulator. He returns today for continuation of medication management. He is considering reducing some of his medications today. He is placing his pain score at around 8/10. ALLERGIES: PENICILLIN, AMOXICILLIN. CURRENT MEDICATIONS: Gabapentin, Ambien, Tylenol Extra Strength, testosterone, multivitamins, lisinopril, hydrochlorothiazide, Nucynta. SOCIAL HISTORY: The patient denies tobacco, alcohol, IV or illicit drug use. He is working, not receiving workmen's compensation. He is unaccompanied at today's visit. IMAGING: No new imaging available. PHYSICAL EXAMINATION: VITAL SIGNS: Blood pressure 114/66, pulse 84, respiratory rate 18 and unlabored. The patient is 98% on room air, height 6 feet tall, weight 287.4 pounds, BMI calculated 39.0. GENERAL: Well-developed, well-nourished, well-hydrated 60-year-old male appearing stated age, pain is rated today around 8/10. HEENT: Normocephalic, atraumatic. Speech is fluent. Extraocular muscles are intact. Sclerae nonicteric without injection. [place] [address] PAIN MANAGEMENT CONSULTATION Name: ARNAUD SALAMANCA [facility] [id number] Admission: 07/14/20 Attend Phys: Darrion Warner DO Discharge: Date of : 60 Report #: [id number] compliance with COVID-19 regulations. EXTREMITIES: Show no clubbing, no cyanosis. There are changes noted in the right foot when compared to left consistent with complex regional pain syndrome including temperature change of about 2 degrees on the dorsum of the foot when compared to the left. There is no appreciable edema. MUSCULOSKELETAL: There are some changes in skin color, texture when comparing right foot to left foot. ASSESSMENT: Complex regional pain syndrome type 1, right foot. PLAN: 1. The patient returns today in followup visit where we have discussed at length the programming that has been applied to date for his spinal cord stimulator. He is reporting about a 50% improvement in symptoms and they are holding in on the signal that this appears to be providing the best benefit for the patient. They are going to continue to make some adjustments in his therapy over the next couple of weeks and he is requesting to continue to work with them to make those adjustments. I am hopeful that the patient will ultimately begin to see 75, maybe even 80% improvement in symptoms, which is what we saw in our trial implantation. The patient is very optimistic. He will continue to contact the device circulation representative to make further adjustments in the treatment. 2. The patient and I did discuss the possibility of coming down on some of the gabapentin and/or Nucynta. At this point, I wish to make the adjustment of the spinal cord stimulator initially. The concern is that if his pain does intensify, is this overstimulation by the device or lack of efficacy due to medication changes. I recommend continuing the medication at this time. Once we have begun to gain improvement in symptoms with the device, then we will begin weaning off medications. By reducing or changing one treatment option at a time, we were able to then make adjustments based on the response. The patient is agreeable. 3. The patient will continue on Nucynta 50 mg dose 1 tab p.o. q.12 hours p.r.n. pain. I have given the patient #60, releasing today and 4 weeks from today, 2 months' worth of medication. The patient was advised to take this medication only when pain is intolerable, not to rely on the medication prophylactically. We did review the patient's PDMP. There are no concerning entries. Prescriptions were provided to the patient today in digital form to his local pharmacy. 4. The patient will continue on gabapentin 600 mg t.i.d. He is currently taking 1200 mg in the morning, 600 mg at noon and 1200 mg at night. He will continue to take the dose as directed. I have given the patient 150 tablets, 1 refill, which is 2 months' worth of medication. We recommend he continue the gabapentin at current dosing with the understanding. We will begin weaning that medication once he receives approximately 75-80% improvement in symptoms with the device. 5. We plan to see the patient back in followup visit in 2 months. I have advised the patient if they do find a program that does give 75-80% improvement [facility] [address] [place] [address] PAIN MANAGEMENT CONSULTATION Name: ARNAUD SALAMANCA Room #: REG [facility] Cates#: [id number] Admission: 07/14/20 Attend Phys: Darrion Warner DO Discharge: Date of : 60 Report #: [id number] in symptoms, contact our clinic. We will begin weaning medications as quickly as possible. The patient is agreeable. By: [id number] Darrion Warner DO /nt
[2020-07-14 14:45] VITALS: BP 114/66
--- NOTE | 2020-07-14 14:57 | NUR ---
Pain Clinic Assessment: 1. History of Osteoarthritis: LOW BACK History of Rheumatoid Arthritis: DENIES 2. Height: 6 ft. 0 in. 182.9 cm. Weight: 287.4 lb. oz. 130.364 kg. Patient's BMI: 39.0 3. Vital Signs: BP: 114/66 Pulse: 84 Resp: 18 Temp: 02 Sat: 98 ECG Mon: 4. Pain Intensity: 8 5. Fall Risk: Dizziness: N Needs help standing or walking: N Fallen in the last 3 months: N Fall risk comments: 6. Patient on Blood Thinner: None 7. History of Hypertension: Y 8. Opioid Therapy greater than 6 weeks: Y Opiate Contract Signed: 03/22/17 9. Risk Assessment Tool Provided: TATI 10. Functional Assessment Tool: 11. Recreational Drug Use: Never Drug Type: Tobacco Use: Former Smoker Tobacco Type: Amount or Packs/day: How Many Years: Alcohol Use: No Frequency: Quant:
== END ==
LOC: PAIN 06:53
PROVIDERS: ATTEND Anesthesiology Pain Medicine
DX: G89.4 Chronic pain syndrome (principal); M25.571 Pain in right ankle and joints of right foot; Z79.891 Long term (current) use of opiate analgesic; Z88.0 Allergy status to penicillin; Z88.1 Allergy status to other antibiotic agents

== ENCOUNTER → 2020-09-01 | Outpatient (CLI) | payer OTHER ==
[~2020-09-01] VITALS: Ht 182.9 cm; Wt 131.2 kg
[~2020-09-01] MED LIST changes: +LYRICA 75 MG CA75 MG PO
--- NOTE | ~2020-09-01 | HPC ---
[facility] [place] [address] PAIN MANAGEMENT CONSULTATION Name: ARNAUD SALAMANCA Room #: REG [facility] Cates#: [id number] Admission: 09/01/20 Attend Phys: Darrion Warner DO Discharge: Date of : 60 Report #: [id number] THIS REPORT FOR: cc: Juan Zuniga Gregg R. DO Johnson, James E. DO ~ DATE OF SERVICE: 09/01/2020 CHIEF COMPLAINT: Right foot pain. HISTORY OF PRESENT ILLNESS: As you know, the patient is a very pleasant 60-year-old male with longstanding history of right foot pain secondary to complex regional pain syndrome type 1 sustained after surgery to the right foot. The patient has been released from his foot surgeon as they recommend no further surgical options. We have implanted the patient with a spinal cord stimulator. He is receiving about 65% improvement in overall pain. He returns today for further adjustments in his spinal cord stimulator treatment and to receive refill of medications. He is also requesting a possible adjustment in his gabapentin therapy as he is having difficulty with daily mentation. He is placing his current pain score at 8/10. ALLERGIES: PENICILLIN, AMOXICILLIN. CURRENT MEDICATIONS: Gabapentin, Ambien, Tylenol Extra Strength, testosterone, multivitamins, lisinopril, hydrochlorothiazide, Nucynta. SOCIAL HISTORY: The patient denies tobacco, alcohol, IV or illicit drug use. He is working, not receiving workmen's compensation, unaccompanied today. IMAGING: No new imaging available. PHYSICAL EXAMINATION: VITAL SIGNS: Blood pressure 125/63, pulse 92, respiratory rate 16 and unlabored. The patient is 97% on room air, height 6 feet tall, weight 289.2 pounds, BMI calculated 39.2. GENERAL: Well-developed, well-nourished, well-hydrated exogenously obese 60-year-old male appearing stated age, pain is rated around 8/10. HEENT: Normocephalic, atraumatic. Pupils equal and round. Extraocular muscles are intact. The patient is wearing a mask in compliance with COVID-19 regulations. EXTREMITIES: Show no clubbing, no cyanosis. There is a skin color changes consistent with complex regional pain syndrome on the right. There is allodynia and hyperalgesia noted on the right foot when compared to left consistent with complex regional pain syndrome. There does not appear to be any hair growth changes. There are changes in skin color, texture and nail growth on the right when compared to left. [address] [address] PAIN MANAGEMENT CONSULTATION Name: JADYNARNAUD LIN Room #: REG [facility]#: [id number] Admission: 09/01/20 Attend Phys: Darrion Warner DO Discharge: Date of : 60 Report #: [id number] ASSESSMENT: 1. Complex regional pain syndrome type 1 of the right foot. PLAN: 1. The patient returns today in followup visit with continued right foot pain consistent with complex regional pain syndrome type 1. I am pleased to advise that the patient is seeing about 65% improvement in overall pain with the spinal cord stimulator to address this issue. He returns today to make adjustments in the cord stimulator itself. It does appear based on his response to recent changes that he is over stimulating the area and this is causing increasing pain and paresthesias. We have adjusted this device to address this issue. We have also made a programming changes with the device itself, taking over 30 minutes of time to provide different coverage and different rate of signaling. We are hopeful the patient will see further improvement in his pain with these adjustments. 2. We will continue the patient on Nucynta 50 mg dose. I have given the patient prescriptions to release today and 4 weeks from today, 2 months' worth of medication. He was provided #60 tablets to take on an as needed basis. 3. The patient has requested a rotation from his gabapentin. He is reporting side effects of sleepiness, disorientation and mental slowing. He states this has been exacerbated with increased gabapentin. We will rotate from gabapentin over to Lyrica in an equivalent dose of Lyrica to be 150 mg twice a day. I plan to give the patient 75 mg tablets to do this titration or this rotation. There is a strong possibility that we may have to further adjust medications upward and thus, I gave him 75 mg tablets, so we can titrate if necessary. He was given #120 of the 75 mg tablets to do the b.i.d. dosing at 150 mg. He will contact us in a week and a half after he has discontinued his gabapentin rotated on to Lyrica to advise of efficacy. The patient does not have to wean off the gabapentin. He can directly discontinue gabapentin and start Lyrica. 4. He will contact our clinic next week or the week following in regards to efficacy with Lyrica and whether or not the symptoms of the gabapentin has improved. By: [id number] Darrion Warner DO /nt
[2020-09-01 14:07] VITALS: BP 125/63
--- NOTE | 2020-09-01 14:19 | NUR ---
Pain Clinic Assessment: 1. History of Osteoarthritis: LOW BACK History of Rheumatoid Arthritis: DENIES 2. Height: 6 ft. 0 in. 182.9 cm. Weight: 289.2 lb. oz. 131.181 kg. Patient's BMI: 39.2 3. Vital Signs: BP: 125/63 Pulse: 92 Resp: 16 Temp: 02 Sat: 97 ECG Mon: 4. Pain Intensity: 8 5. Fall Risk: Dizziness: N Needs help standing or walking: N Fallen in the last 3 months: N Fall risk comments: 6. Patient on Blood Thinner: None 7. History of Hypertension: Y 8. Opioid Therapy greater than 6 weeks: Y Opiate Contract Signed: 03/22/17 9. Risk Assessment Tool Provided: TATI 10. Functional Assessment Tool: 11. Recreational Drug Use: Never Drug Type: Tobacco Use: Former Smoker Tobacco Type: Amount or Packs/day: How Many Years: Alcohol Use: No Frequency: Quant:
== END ==
LOC: PAIN 06:55
PROVIDERS: ATTEND Anesthesiology Pain Medicine
DX: G89.4 Chronic pain syndrome (principal); M25.571 Pain in right ankle and joints of right foot; Z79.899 Other long term (current) drug therapy; Z88.0 Allergy status to penicillin; Z88.1 Allergy status to other antibiotic agents

== ENCOUNTER → 2020-11-02 | Outpatient (CLI) | payer BC, OTHER ==
[~2020-11-02] VITALS: Ht 182.9 cm; Wt 131.1 kg
[2020-11-02 08:04] VITALS: BP 111/72
--- NOTE | 2020-11-02 08:07 | NUR ---
Pain Clinic Assessment: 1. History of Osteoarthritis: LOW BACK History of Rheumatoid Arthritis: DENIES 2. Height: 6 ft. 0 in. 182.9 cm. Weight: 289.0 lb. oz. 131.090 kg. Patient's BMI: 39.2 3. Vital Signs: BP: 111/72 Pulse: 80 Resp: 20 Temp: 02 Sat: 96 ECG Mon: 4. Pain Intensity: 4 5. Fall Risk: Dizziness: N Needs help standing or walking: N Fallen in the last 3 months: N Fall risk comments: 6. Patient on Blood Thinner: None 7. History of Hypertension: Y 8. Opioid Therapy greater than 6 weeks: Y Opiate Contract Signed: 03/22/17 9. Risk Assessment Tool Provided: ATTI 10. Functional Assessment Tool: 11. Recreational Drug Use: Never Drug Type: Tobacco Use: Former Smoker Tobacco Type: Amount or Packs/day: How Many Years: Alcohol Use: No Frequency: Quant:
--- NOTE | 2020-11-02 12:12 | HPC ---
[facility] [place] [address] PAIN MANAGEMENT CONSULTATION Name: JADYNARNAUD CEBALLOS Room #: REG CLARI Cates#: [id number] Admission: 11/02/20 Attend Phys: Darrion Warner DO Discharge: Date of : 60 Report #: [id number] THIS REPORT FOR: cc: Juan Zuniga Gregg R. DO Johnson, James E. DO ~ DATE OF SERVICE: 11/02/2020 CHIEF COMPLAINT: Complex regional pain syndrome of the right foot. HISTORY OF PRESENT ILLNESS: As you know, the patient is a very pleasant 60-year-old male with longstanding history of right foot pain secondary to complex regional pain syndrome type 1 sustained after surgery to the right foot. He returns today in followup visit reporting a pain score of about 4/10. He states the pain is chronic in nature, describes the pain as aching, throbbing allodynic, sharp, shooting, and numbness. Pain is exacerbated with activity, bending, walking, wearing shoes and socks, and having blankets touch his leg. Pain is improved with elevating his foot, pain medication, and the spinal cord stimulator. The patient reports the spinal cord stimulator is providing about 75% improvement in symptoms. This in conjunction with the medications allow him to continue to work on a daily basis. He returns today for refill of medications, denying side effects and for adjustments in his spinal cord stimulator for hopeful further analgesic benefit. He is also wanting to discuss diet changes for weight loss. ALLERGIES: PENICILLIN, AMOXICILLIN. CURRENT MEDICATIONS: Gabapentin 600 mg 3 times a day, multivitamin 1 tab per day, aspirin 81 mg per day, tapentadol 50 mg twice a day p.r.n., lisinopril/hydrochlorothiazide 10/12.5 mg once a day. SOCIAL HISTORY: The patient denies tobacco, alcohol, IV or illicit drug use. He is working, not receiving workmen's compensation. He is unaccompanied today. IMAGING: MRI of the right foot obtained 09/18/2020 shows mild degenerative changes of the great toe MTP joint and sesamoid phalangeal joints. There is a bipartite configuration of the medial sesamoid. No fractures. Ligaments appear intact. PHYSICAL EXAMINATION: VITAL SIGNS: Blood pressure 111/72, pulse 80, respiratory rate 20 and unlabored. The patient is 96% on room air, height 6 feet tall, weight 289 pounds, BMI calculated 39.2. GENERAL: Well-developed, well-nourished, well-hydrated exogenously obese 60-year-old male. He appears stated age, pain is rated today around 4/10. HEENT: Normocephalic, atraumatic. Pupils equal, round, and responsive. [facility] [address] [place] [address] PAIN MANAGEMENT CONSULTATION Name: ARNAUD SALAMANCA [id number] Admission: 11/02/20 Attend Phys: Darrion Warner DO Discharge: Date of : 60 Report #: [id number] NEUROLOGIC: The patient's speech is normal. He is wearing a mask in compliance with COVID-19 regulations. EXTREMITIES: Show no clubbing, no cyanosis. MUSCULOSKELETAL: There is a skin color changes of the right foot on the dorsum. Plantar surface appears normal. Allodynia is noted as well as hyperalgesia on the right foot, mainly on the lateral portion of the foot and the medial portion of the right ankle. Pain is elicited with plantar and dorsiflexion of the foot. ASSESSMENT: 1. Complex regional pain syndrome type 1 of the right foot. 2. Exogenous obesity. 3. Complicated medication management utilizing scheduled medications. PLAN: 1. The patient returns today in followup visit to make adjustments in his spinal cord stimulator in hopes of improving his right foot pain further. He is now reporting about 75% improvement in overall pain. He is very pleased with the device, but did have some time over the last week or week and a half where he increased the power of the device leading to overstimulation and increasing pain. We have adjusted him back to a lower level and that overstimulation discontinued. His pain has begun to improve. He returns for adjustments in the stimulator pattern and frequency in hopes of improving his symptoms further. He spent over 30 minutes of time with the device sales representative sales manager today, undergoing reprogramming and reeducation on how to use the device and minimize overstimulation. We are hopeful the patient will see improved analgesic benefit with the adjustments made today. 2. The patient and I spent time today reviewing his medications. As you are aware, he did have some side effects to the pregabalin and we returned to the use of gabapentin with a loss of those potential side effects. He is taking the gabapentin 600 mg 3 times a day and requesting refill of that medication. He is considering reducing his reliance on the tapentadol now that his spinal cord stimulator has been further adjusted. We recommend that he take no more than 2 tablets a day of that medication and if possible reduce that even further. The patient is agreeable with plan. 3. We reviewed the fact that opiate medications are being used to provide analgesia adequate to support activities of daily living, not attempting to achieve a specific pain score on the 0-10 Visual Analog Scale. The current opiate medications are providing sufficient analgesia to allow the patient to participate in activities of daily living. The patient is not exhibiting any aberrant behavior suggestive of drug diversion. The patient is not having any adverse reactions to medications. The patient is not suffering from daytime somnolence or mental acuity changes. The patient is managing opiate-induced constipation with appropriate eayn-dbr-fyowobx agents and dietary considerations. The patient was counseled on concern for caution with operating a motor vehicle while using opiate medications. 4. The patient was provided prescription of Nucynta 50 mg dose 1 tab p.o. [facility] [address] [place] [address] PAIN MANAGEMENT CONSULTATION Name: ARNAUD SALAMANCA Room #: REG [facility].#: [id number] Admission: 11/02/20 Attend Phys: Darrion Warner DO Discharge: Date of : 60 Report #: [id number] b.i.d. I have given the patient #60 tablets to release today and 4 weeks from today, 2 months' worth of medication. We will review his use of the medication in 2 months if he is able to reduce the medication, we will then reduce the actual prescriptions. 5. The patient was provided prescription of gabapentin 600 mg dose t.i.d., #90 with 2 refills, 3 months' worth of medication. 6. The patient and I spent about 30 minutes of time today discussing exercise programs and how he can do this with the complex regional pain syndrome of the right foot. We also discussed diet changes and adjustments in his thinking of diets and how he can reduce his caloric intake, but continue to partake in daily foods. We have directed him to 2 different websites that can help direct his care further. We spent all this time today discussing this with the patient in consultation. 7. We plan to see the patient back in followup visit in 2 months for medication management and hopefully be able to wean his Nucynta further. We are encouraged that he is seeing improvement in symptoms and hopeful that the adjustments in spinal cord stimulator will further improve analgesic benefit. <ELECTRONICALLY SIGNED> By: Darrion Warner DO 11/02/20 1212 0951 Darrion Warner DO /nt
== END ==
LOC: PAIN 06:49
PROVIDERS: ATTEND Anesthesiology Pain Medicine
DX: G89.4 Chronic pain syndrome (principal); M79.671 Pain in right foot; E66.01 Morbid (severe) obesity due to excess calories; F11.20 Opioid dependence, uncomplicated; Z88.8 Allergy status to other drugs, medicaments and biological substances; Z79.899 Other long term (current) drug therapy

== ENCOUNTER → 2021-01-04 | Outpatient (CLI) | payer BC, OTHER ==
[~2021-01-04] VITALS: Ht 182.9 cm; Wt 131.5 kg
[2021-01-04 08:13] VITALS: BP 132/72
--- NOTE | 2021-01-04 08:18 | NUR ---
Pain Clinic Assessment: 1. History of Osteoarthritis: LOW BACK History of Rheumatoid Arthritis: DENIES 2. Height: 6 ft. 0 in. 182.9 cm. Weight: 290.0 lb. oz. 131.544 kg. Patient's BMI: 39.3 3. Vital Signs: BP: 132/72 Pulse: 76 Resp: 16 Temp: 02 Sat: 97 ECG Mon: 4. Pain Intensity: 4 5. Fall Risk: Dizziness: N Needs help standing or walking: N Fallen in the last 3 months: N Fall risk comments: 6. Patient on Blood Thinner: None 7. History of Hypertension: Y 8. Opioid Therapy greater than 6 weeks: Y Opiate Contract Signed: 03/22/17 9. Risk Assessment Tool Provided: TATI 10. Functional Assessment Tool: 11. Recreational Drug Use: Never Drug Type: Tobacco Use: Former Smoker Tobacco Type: Amount or Packs/day: How Many Years: Alcohol Use: No Frequency: Quant:
--- NOTE | 2021-01-05 08:22 | HPC ---
[facility] [place] [address] PAIN MANAGEMENT CONSULTATION Name: ARNAUD SALAMANCA Room #: REG CLARI Cates#: [id number] Admission: 01/04/21 Attend Phys: Darrion Warner DO Discharge: Date of : 60 Report #: [id number] THIS REPORT FOR: cc: Juan Zuniga Gregg R. DO Johnson, James E. DO ~ DOC #: [id number] cc: DO Darrion Holt DO DATE OF SERVICE: 01/04/2021 DATE OF SERVICE: 01/04/2021 CHIEF COMPLAINT: Right lower extremity pain secondary to complex regional pain syndrome. HISTORY OF PRESENT ILLNESS: As you know, the patient is a very pleasant 60-year-old male with longstanding history of right foot pain after undergoing surgery, which led to complex regional pain syndrome type 1 of the right foot. He has undergone spinal cord stimulator implantation with benefit. He is continuing to make adjustments in the device itself and is very pleased with response to that device. He is now placing pain, no greater than 4/10. He continues to make adjustments in the spinal cord stimulator and is planning once he has had the final 2 adjustments made that he has had planned to begin the process of weaning off of the Nucynta then off the gabapentin if at all possible. He returns today for refill of medications and discuss his plan of weaning of medications as tolerated. The patient denies any side effects to the medication except for some somnolence, he believes may be due to the medications, though he has been working more frequently and that may be actually what is causing his excessive nighttime sleepiness. He is unsure of whether or not that is the case. He returns to make a discussion and plans of weaning off of the medications in hopes of potentially improving the sleepy sensation. ALLERGIES: PENICILLIN, AMOXICILLIN. CURRENT MEDICATIONS: Gabapentin 300 mg 3 times a day, multivitamin one tab per day, aspirin 81 mg per day, Nucynta 50 mg b.i.d., lisinopril/hydrochlorothiazide 10/12.5 mg once a day. SOCIAL HISTORY: The patient denies tobacco, alcohol or IV or illicit drug use. He is working, not receiving workmen's compensation, unaccompanied today. IMAGING: No new imaging available. PHYSICAL EXAMINATION: VITAL SIGNS: Blood pressure 132/72, pulse 76, respiratory rate 16 and [facility] [address] [place] [address] PAIN MANAGEMENT CONSULTATION Name: ARNAUD SALAMANCA [facility] [id number] Admission: 01/04/21 Attend Phys: Darrion Warner DO Discharge: Date of : 60 Report #: [id number] unlabored. The patient 97% on room air, height 6 feet tall, weight 290 pounds, BMI calculated 39.3. GENERAL: Well-developed, well-nourished, well-hydrated exogenously obese 60-year-old male, pain is rated today at 4/10. HEENT: Normocephalic, atraumatic. Pupils equal, round and responsive. The patient is wearing a mask in compliance with COVID-19 regulations. EXTREMITIES: Show no clubbing, no cyanosis. No appreciable edema. MUSCULOSKELETAL: There is once again skin color changes noted of the right foot, mainly on the dorsal surface today. Allodynia is noted with light touch to the area. This is mainly on the lateral portion of the foot. There are mild changes on the medial portion of the ankle. Definitive temperature change of 3 degrees Fahrenheit between the dorsum of the left and right foot. ASSESSMENT: 1. Complex regional pain syndrome type 1 of the right foot. 2. Exogenous obesity. 3. Complicated medication management utilizing scheduled medications. 4. Chronic intractable pain. PLAN: 1. The patient has returned today in followup visit to discuss the possibility of weaning off of the medications he is currently taking for pain control. Patient feels that he might be experiencing side effects to the medication of sleepiness that is becoming more problematic. We typically see side effects with medications as we are titrating up on medication or when the pain generator is being controlled well with another source and we begin to see the side effects of these medications. We are in agreement with the patient to begin weaning of the medications once he has completed the adjustments in his spinal cord stimulator, which should be in the next 2 weeks. The patient is agreeable with the weaning of the medication. We discussed how to do that today. He has requested refill of his medications at current dosing, so that in case he is able to begin any weaning processes he can utilize the medication provided today. If he is unable to undergo the weaning process due to increased pain, he will have backup medications available. I am agreeable with this plan. 2. The patient was provided prescription of Nucynta 50 mg dose 1 tab p.o. b.i.d. I have given the patient, #60 tablets with releases of today and 4 weeks from today 2 months' worth of medication. The patient was advised to begin weaning off this medication initially. Once he is off the Nucynta entirely, we will then begin looking towards weaning off the gabapentin if possible. The patient was provided the prescriptions via e-scribe to local pharmacy. 3. The patient was provided refill prescription of gabapentin 600 mg tablet 3 times a day. I have sent the prescription to his local pharmacy #150 tablets total. That will allow him the capability of increasing gabapentin when coming off his Nucynta pain intensifies. I believe neuropathic medications to be much more effective to address symptoms than the Nucynta. Prescription was sent via e-scribe to local pharmacy with one refill two months' worth of medication. [address] [address] PAIN MANAGEMENT CONSULTATION Name: ARNAUD SALAMANCA Room #: REG CLHeriberto Cates#: [id number] Admission: 01/04/21 Attend Phys: Darrion Warner DO Discharge: Date of : 60 Report #: [id number] 4. We will see the patient back in followup visit in 2 months, assuming he remains on these medications. If he is able to wean off the Nucynta, he will contact our clinic by phone and we will give him suggestions on how to wean off the gabapentin prior to his return. We are hopeful the patient will be able to get off medications and potentially reduce the side effects of those therapies. Darrion Warner DO JEJ/HUS <ELECTRONICALLY SIGNED> By: Darrion Warner DO 01/05/21 0822 0812 1220 Darrion Warner, DO /nt
== END ==
LOC: PAIN 07:03
PROVIDERS: ATTEND Anesthesiology Pain Medicine
DX: G89.4 Chronic pain syndrome (principal); E66.09 Other obesity due to excess calories; Z88.2 Allergy status to sulfonamides; Z88.1 Allergy status to other antibiotic agents; Z79.899 Other long term (current) drug therapy; Z79.891 Long term (current) use of opiate analgesic

== ENCOUNTER → 2021-04-27 | Outpatient (CLI) | payer BC, OTHER ==
[~2021-04-27] VITALS: Ht 182.9 cm; Wt 126.3 kg
[2021-04-27 10:10] VITALS: BP 150/65
--- NOTE | 2021-04-27 10:20 | NUR ---
Pain Clinic Assessment: 1. History of Osteoarthritis: LOW BACK History of Rheumatoid Arthritis: DENIES 2. Height: 6 ft. 0 in. 182.9 cm. Weight: 278.4 lb. oz. 126.282 kg. Patient's BMI: 37.7 3. Vital Signs: BP: 150/65 Pulse: 72 Resp: 16 Temp: 02 Sat: 95 ECG Mon: 4. Pain Intensity: 8 5. Fall Risk: Dizziness: N Needs help standing or walking: N Fallen in the last 3 months: N Fall risk comments: 6. Patient on Blood Thinner: None 7. History of Hypertension: Y 8. Opioid Therapy greater than 6 weeks: Y Opiate Contract Signed: 03/22/17 9. Risk Assessment Tool Provided: TATI 10. Functional Assessment Tool: 11. Recreational Drug Use: Never Drug Type: Tobacco Use: Former Smoker Tobacco Type: Amount or Packs/day: How Many Years: Alcohol Use: No Frequency: Quant:
--- NOTE | 2021-05-03 09:21 | HPC ---
[facility] [place] [address] PAIN MANAGEMENT CONSULTATION Name: ARNAUD SALAMANCA Room #: REG CLARI Cates#: [id number] Admission: 04/27/21 Attend Phys: Darrion Warner DO Discharge: Date of : 60 Report #: [id number] THIS REPORT FOR: cc: Juan Zuniga,Darrion Beckford DO ~ cc: Juan Zuniga DO DATE OF SERVICE: 04/27/2021 CHIEF COMPLAINT: Complex regional pain syndrome of the right lower extremity. HISTORY OF PRESENT ILLNESS: As you know, the patient is a very pleasant 61-year-old male with longstanding history of right foot pain after undergoing surgery, which led to complex regional pain syndrome type 1 of the right foot. He has undergone spinal cord stimulator implantation with benefit. We have made further adjustments in that device and he is now reporting 75% improvement in overall pain. Despite this, reported 75% improvement. He is also placing pain today at 8/10. Apparently, he has been much more active over the last 3 days and this is exacerbated symptoms. He states his pain is constant numbness and sharp when describing pain. Pain is exacerbated with lying down, standing, touching his foot, putting on socks or shoes, walking, alleviated with the spinal cord stimulator rest and elevating of his feet. He has discontinued his recent medications, both Nucynta and gabapentin. He has not noticed an increase in overall pain after discontinuation. He wishes to make adjustments in his cord stimulator today in hopes of improving it further. ALLERGIES: PENICILLIN, AMOXICILLIN. CURRENT MEDICATIONS: Multivitamin 1 tab per day, aspirin 81 mg per day, lisinopril/hydrochlorothiazide 10/12.5 mg once a day. SOCIAL HISTORY: The patient denies tobacco, alcohol or IV or illicit drug use. He is working, not receiving workmen's compensation, unaccompanied today. IMAGING: No new imaging available. PHYSICAL EXAMINATION: VITAL SIGNS: Blood pressure 150/65, pulse 72, respiratory rate 16 and unlabored. The patient 95% on room air, height 6 feet tall, weight 278.4 pounds, BMI calculated 37.5. GENERAL: Well-developed, well-nourished, well-hydrated exogenously obese 61-year-old male, appearing stated age, pain is rated today around 8/10. HEENT: Normocephalic, atraumatic. Pupils are round and responsive. He is wearing a mask in compliance with COVID-19 regulations. EXTREMITIES: Show no clubbing, no cyanosis. No appreciable edema. MUSCULOSKELETAL: The patient once again shows changes consistent with complex [address] [address] PAIN MANAGEMENT CONSULTATION Name: ARNAUD SALAMANCA Room #: REG CLARI Cates#: [id number] Admission: 04/27/21 Attend Phys: Darrion Warner DO Discharge: Date of : 60 Report #: [id number] regional pain syndrome of the right foot. There is allodynia and hyperalgesia overlying the dorsum and plantar surface of the foot. There is some color changes, though these appear improved from our previous evaluation. Temperature change of 3 degrees from the dorsum of the foot on the right to the dorsum of the foot on the left. ASSESSMENT: 1. Complex regional pain syndrome type 1 of the right foot. 2. Neuropathic pain. 3. Exogenous obesity. 4. Complicated medication management utilizing scheduled medications. 5. Chronic intractable pain. PLAN: 1. The patient returns today in followup visit, having discontinued all of his medications he has been using for pain control, including the Nucynta and gabapentin. He is pleased to be off the medication and has not noted a significant exacerbation of symptoms. He returns today in followup visit to adjust his spinal cord stimulator further. We have made some adjustments over the last couple of weeks and his symptoms have begun to improve. He is hopeful with further adjustments he will be able to obtain even further benefit. He returns where we have readjusted the device today, spending over 35 minutes of time with the patient educating on the new programming and providing new programming parameters to which he can trial. 2. No medication changes made at today's visit. The patient will continue current medical therapy as prior prescribed. We did discuss the possibility of restarting a neuropathic medication at night as he is experiencing most of his symptoms now in the evening hours. He wishes to consider that options before moving forward. We would recommend restarting gabapentin in the evening hours if necessary. He will contact our clinic if he wishes to move forward with that option. 3. We will see the patient back in followup visit on an as needed basis. We are pleased to see the patient is doing better with the new programming of the cord stimulator and we are hopeful that he will continue to see improvement. 4. We will see the patient back in followup visit on an as needed basis for further adjustments in his spinal cord stimulating device if necessary and make any changes in medication management. <ELECTRONICALLY SIGNED> By: Darrion Warner DO 05/03/21920 9 9 Darrion Warner DO /nt
== END ==
LOC: PAIN 07:00
PROVIDERS: ATTEND Anesthesiology Pain Medicine
DX: G89.29 Other chronic pain (principal); M79.661 Pain in right lower leg; E66.8 Other obesity; M79.2 Neuralgia and neuritis, unspecified

== ENCOUNTER → 2021-06-21 | Outpatient (CLI) | payer BC, OTHER ==
[~2021-06-21] VITALS: Ht 182.9 cm; Wt 127.8 kg
--- NOTE | ~2021-06-21 | HPC ---
[address] [address] PAIN MANAGEMENT CONSULTATION Name: ARNAUD SALAMANCA Room #: REG NATALIOHeriberto Cates#: [id number] Admission: 06/21/21 Attend Phys: Darrion Warner DO Discharge: Date of : 60 Report #: [id number] THIS REPORT FOR: cc: Juan Zuniga,Darrion Beckford DO ~ cc: Juan Zuniga DO DATE OF SERVICE: 06/21/2021 REFERRING PHYSICIAN: Dr. Juan Zuniga. CHIEF COMPLAINT: Right lower extremity pain secondary to complex regional pain syndrome, status post foot surgery. HISTORY OF PRESENT ILLNESS: As you know, the patient is a very pleasant 61-year-old male with longstanding history of right foot pain secondary to complex regional pain syndrome after undergoing foot surgery. He has undergone spinal cord stimulator trial implantation with good benefits. He continues to make adjustments in the device to optimize pain control. Unfortunately, his symptoms have begun to re-occur. This began in April, interestingly, just about that time we reduced his oral medications per his request. He returns today in followup visit for further adjustments in the cord stimulator programming, but also did discuss the possibility of restarting the medications as he has noted loss of efficacy with reduction in his oral medications. He denies injury, trauma, or any changes in his medication management since our last visit except for the reduction in his neuropathic medications and pain medications. ALLERGIES: PENICILLIN, AMOXICILLIN. CURRENT MEDICATIONS: Multivitamin 1 tab per day, aspirin 81 mg per day, lisinopril/hydrochlorothiazide 10/12.5 mg once a day. SOCIAL HISTORY: The patient denies tobacco, alcohol, or IV or illicit drug use. He is working, not receiving workmen's compensation, unaccompanied today. IMAGING: No new imaging available. PHYSICAL EXAMINATION: VITAL SIGNS: Blood pressure 127/67, pulse is 89, respiratory rate 16 and unlabored. The patient is 97% on room air. Height 6 feet tall, 281.8 pounds, BMI calculated at 38.2. GENERAL: Well-developed, well-nourished, well-hydrated class 2 morbidly obese 61-year-old male. He appears stated age. Pain is rated today 9/10. HEENT: Normocephalic, atraumatic. Pupils equal, round, and responsive. He is wearing a mask in compliance with COVID-19 [place] [address] PAIN MANAGEMENT CONSULTATION Name: ARNAUD SALAMANCA Room #: REG [facility] [id number] Admission: 06/21/21 Attend Phys: Darrion Warner DO Discharge: Date of : 60 Report #: [id number] EXTREMITIES: Show no clubbing. There is noted cyanotic changes in the right foot area, consistent with his complex regional pain syndrome. There is allodynia noted with light touch with his sock, shoe, and hand. He has color changes and temperature changes in the dorsum and plantar surface of the foot. No degenerative changes noted on gross examination. ASSESSMENT: 1. Complex regional pain syndrome, type 1 of the right foot. 2. Exogenous obesity. 3. Complicated medication management. 4. Chronic intractable pain. PLAN: 1. The patient returns today in followup visit, having noted in April that his pain has begun to intensify. Interestingly, this is the time that we made some adjustments in the medications per the patient's request to reduce his reliance on oral medications. We would recommend restarting the oral medications at this time and making adjustments in his cord stimulator in hopes of further benefit. We spent time at our last visit discussing this issue. He is agreeable to make these changes today. 2. We spent over 30 minutes of time with the patient today, reprogramming the patient's cord stimulator for improved analgesic benefit. We have provided the patient with 6 different new programs that he can trial over the next little bit of time. He has been advised on how to trial these new programming systems. Once he has found an appropriate program, he is to contact the [employer] device applications sales representative to have them make adjustments in the device to address the improvement in pain. We are hopeful to see these programming changes. He will keep in contact with the [employer] device applications sales representative in regards to programming. 3. We recommend the patient restart his gabapentin. He is missing neuropathic medication. He will start with 600 mg p.o. at bedtime for 3 nights, then increase to 900 mg p.o. at bedtime for 3 nights. If no improvement in symptoms, no side effects of sleepiness, disorientation, confusion, mental slowing, then increase to 1200 mg p.o. at bedtime for 3 nights. If again no improvement in symptoms, no side effects, then begin titrating in the daytime hours. Goal dose at this time will be 600 mg morning, 600 mg noon, and 1200 mg at night. The patient has gabapentin available and does not need a refill of the medication at this time. The patient was advised anytime during the titration he notes improvement in symptoms, stabilize at that dose, do not got further in increasing medications. If he is having severe side effects contact our clinic for further instructions. 4. We have provided the patient a refill of his Nucynta. We are utilizing Nucynta specifically because it has a norepinephrine reuptake inhibition in conjunction with the nociceptive analgesic benefits of opioid-like medications. The combination is excellent for neuropathic pain. I have given the patient a 50-mg tablet to take up to 3 times a day as needed. I have given him #90 tablets. He is to contact our clinic with response. The prescription was sent [address] [place] [address] PAIN MANAGEMENT CONSULTATION Name: ARNAUD SALAMANCA Room #: REG CLARI Cates#: [id number] Admission: 06/21/21 Attend Phys: Darrion Warner DO Discharge: Date of : 60 Report #: [id number] via e-scribe to local pharmacy. 5. Plan to see the patient back in followup visit in 1 month. We will make further adjustments in the programming if necessary and adjust medications as appropriate. By: [id number] Darrion Warner DO /nt
[2021-06-21 13:12] VITALS: BP 127/67
--- NOTE | 2021-06-21 13:48 | NUR ---
Pain Clinic Assessment: 1. History of Osteoarthritis: LOW BACK History of Rheumatoid Arthritis: DENIES 2. Height: 6 ft. 0 in. 182.9 cm. Weight: 281.8 lb. oz. 127.824 kg. Patient's BMI: 38.2 3. Vital Signs: BP: 127/67 Pulse: 89 Resp: 16 Temp: 02 Sat: 97 ECG Mon: 4. Pain Intensity: 9 5. Fall Risk: Dizziness: N Needs help standing or walking: N Fallen in the last 3 months: N Fall risk comments: 6. Patient on Blood Thinner: None 7. History of Hypertension: Y 8. Opioid Therapy greater than 6 weeks: Y Opiate Contract Signed: 03/22/17 9. Risk Assessment Tool Provided: TATI 10. Functional Assessment Tool: 11. Recreational Drug Use: Never Drug Type: Tobacco Use: Former Smoker Tobacco Type: Amount or Packs/day: How Many Years: Alcohol Use: No Frequency: Quant:
== END ==
LOC: PAIN 10:59
PROVIDERS: ATTEND Anesthesiology Pain Medicine
DX: M79.661 Pain in right lower leg (principal); G89.29 Other chronic pain; E66.09 Other obesity due to excess calories; Z88.0 Allergy status to penicillin; Z88.8 Allergy status to other drugs, medicaments and biological substances